=== PATIENT | female | born 1945 | race Caucasian/White ===

== ENCOUNTER 2016-10-11 09:15 | Emergency (ER) | payer MEDICARE, BC ==
--- NOTE | 2016-10-11 09:27 | ERNOTE ---
[id number]: patient, other - friends Exam Limitations: clinical condition Immunizations: IMMUNIZATION HX Immunizations Up to Date Yes Allergies/Adverse Reactions: Allergies Allergy/AdvReac Type Severity Reaction Status Date / Time amlodipine besylate Allergy Severe Anaphylaxis, Verified 10/11/16 09:30 [From [facility]] TONGUE SWELLING benzocaine Allergy Severe Anaphylaxis Verified 10/11/16 09:30 levofloxacin [From Levaquin] Allergy Severe Anaphylaxis, Verified 10/11/16 09:30 RASH, ITCHING levothyroxine sodium Allergy Severe PATCHY Verified 10/11/16 09:30 SWELLING morphine AdvReac Intermediate ARRYTHMIA, Verified 10/11/16 09:30 RASH adhesive AdvReac Mild BLISTERS Verified 10/11/16 09:30 rubber Allergy Mild Hives Uncoded 10/11/16 09:30 Home Medications: HOME MEDICATIONS Alprazolam 0.5 mg PO BID 02/27/14 [Last Taken Unknown] Lisinopril/Hydrochlorothiazide [Lisinopril-Hctz 20-12.5 mg Tab] 2 each PO DAILY 02/27/14 [Last Taken Unknown] Pramipexole Di-HCl [Pramipexole Dihydrochloride] 1 mg PO BID 02/27/14 [Last Taken Unknown] Gabapentin [Neurontin] 300 mg PO TID 05/17/14 [Last Taken Unknown] Metoprolol Succinate [Toprol Xl] 50 mg PO DAILY 05/26/14 [Last Taken Unknown] Albuterol Sulfate [Albuterol Sulfate 2.5 MG/0.5ML] 1 vial IH Q4H PRN 10/11/16 [ Last Taken Unknown] Aspirin [Aspirin EC] 81 mg PO DAILY 10/11/16 [Last Taken Unknown] Budesonide [Pulmicort Respules] 0.5 mg IH PRN PRN 10/11/16 [Last Taken Unknown] Formoterol Fumarate [Perforomist] 20 mcg IH PRN PRN 10/11/16 [Last Taken Unknown ] Meloxicam [Mobic] 15 mg PO DAILY 10/11/16 [Last Taken Unknown] Montelukast Sodium [Singulair] 10 mg PO DAILY 10/11/16 [Last Taken Unknown] - History of Present Illness Narrative: Patient is brought in by neighbors for possible stroke. When they talked to her last night around 17:00 she had no symptoms. Patient states that when she talked to a friend on the phone at 21:00 the friend had a hard time understanding her. All night she felt weak in both legs, had difficulty using her walker and was dropping things (with both hands?). This morning around 09: 00 she walked to neighbors at apartment complex was noticed to have a left facial droop that the patient is not aware off. Neighbors also state that her speech was garbled. Patient had URI symptoms around [place] with cough and shortness of breath, she feels that the symptoms are better, shortness of breath is at baseline as she has a history of asthma and sleep apnea. She uses oxygen at night but no CPAP Last Date Known Well: 10/10/16 Last Time Known Well: 17:00 Onset: cannot confirm onset - Character of Deficits New weakness: Present: facial (lt) Additional Deficits: Present: impaired speech, decrease ability to walk. Absent : vision problems Baseline Cognition: Present: alert, oriented x 4 Baseline Gait: Present: uses a cane/walker Associated Symptoms: Denies: fever/chills, chest pain, neck/back pain, headache Prior Treament: Denies: similar symptoms before, currently on antibiotics Review of Systems - Review of Systems Constitutional: Present: recent illness. Absent: fever EYE: Absent: double vision ENT: Absent: nose congestion, sore throat Respiratory: Present: See HPI, shortness of breath. Absent: cough Cardiology: Absent: chest pain Gastrointestinal/Abdominal: Absent: nausea, vomiting, abdominal pain Genitourinary: Present: decreased urinary output Skin: Absent: rash Neurological: Present: weakness. Absent: headache - Patient's Past Medical History Patient History - Medical: No pertinent hx Patient History - Cardiac/Respiratory: Hypertension, Hyperlipidemia Patient History - Cancer: No Hx of Cancer Patient History - Surgical Procedures: Back Surgery, Total Hip Replacement, Total Knee Replacement, Other - carpal tunnel surgery - Social History Living Situations: home Physical Exam - Physical Exam General Appearance: Present: wd/wn, alert, no apparent distress, anxious Eye Exam: Normal inspection: bilateral, PERRL: bilateral, EOMI: bilateral Ears, Nose, Throat: Present: normal ENT inspection, normal pharynx Respiratory: Present: no respiratory distress, decreased breath sounds, wheezing - occasional Cardiovascular/Chest: Present: regular rate, rhythm Gastrointestinal/Abdominal: Present: nondistended, soft Neurological Exam: Present: alert, oriented, facial droop - left Skin Exam: Present: normal color, warm/dry Jed Coma Scale - Assess Eye Opening: Spontaneous Motor: Obeys Commands Verbal: Oriented - Total Coma Scale Total: 15 Initial Stroke Assessment - NIH Stroke Scale Level of Consciousness: Alert LOC Questions (Year and Age): Answers both correctly LOC Commands (open/close eyes/fist): Performs both correctly Lateral Gaze Paresis: None Visual Field Loss: No visual loss Facial Palsy: Complete facial paralysis Right Arm Motor (10 sec hold): No drift Left Arm Motor (10 sec hold): Drift Right Leg Motor (5 sec hold): No drift Left Leg Motor (5 sec hold): Drift Sensory Loss (pinprick arms/legs/face): No sensory loss Language Aphasia (description/naming/reading): No aphasia; normal Dysarthria (speech clarity): Normal articulation Neglect Inattention (visual/tactile/auditory/spatial/person): No neglect ED Progress - Results and Orders Patient's Lab Results:: I have reviewed the patient's lab results. - Vital Signs Patient's Vital Signs:: I have reviewed the patient's vital signs. - EKG EKG: atrial fibrillation, changed from - 06/18/14 nl sinus rhythm, other - poor Rprogression anterior leads EKG read: Interp. by me - X-Ray X-Ray #1 X-Ray: chest - no acute changes Interpretation: Reviewed by me - CT/Ultrasound CT/Ultrasound Narrative: CT head: no acute findings - Progress/Reassessment Chief Complaint: CerebroVascular Accident Progress Note-Subjective: 10/11/16 09:50 no change 10/11/16 10:10 discussed results with patient, discussed possible transfer to stroke center, patient doesn't want to be transferred at this time 10/11/16 10:30 discussed with daughter and patient, patient agrees to transfer now 10/11/16 10:33 call to [facility],discussed with Dr Guadalupe (stroke team) accepted patient for transfer Departure Clinical Impression: Stroke Qualifiers: CVA mechanism: unspecified Qualified Code(s): I63.9 - Cerebral infarction, unspecified - Departure Disposition: [facility] Condition: Good
[2016-10-11 09:50] LABS: Hematocrit 40.9 % (37.0-47.0); Hemoglobin 13.2 gm/dL (12.5-16.0); Mean Cell Volume 95.6 fl (78-100); Mean Corpuscular Hemoglobin 30.8 pg (27-31); Mean Corpuscular Hgb Conc 32.3 g/dl (32-36); Mean Platelet Volume 9.7 fl (6.0-9.5); Neutrophil # 3.4 K/mm3 (1.3-6.0); Platelet Count 235 K/mm3 (150-450); Red Blood Count 4.28 M/mm3 (4.2-5.4); Red Cell Distribution Width 13.6 % (11.5-14.0); White Blood Count 6.5 K/mm3 (4.0-10.5)
[2016-10-11 10:01] LABS: Prothrombin Time (Patient) 10.3 Seconds (9.4-11.4)
[2016-10-11 10:03] LABS: INR 0.99 INR (0.90-1.10)
[2016-10-11 10:04] LABS: BUN/Creatinine Ratio 15.7 (9.0-21.6); Carbon Dioxide 31.9 mmol/L (24-32.6)
[2016-10-11 10:05] LABS: Albumin * 3.5 gm/dl (3.4-5.0); Anion Gap 11.1 mmol/L (6.8-13.8); Bilirubin, Total 0.6 mg/dL (0.0-1.1); Ca. Corrected For Albumin 9.3 mg/dL (8.4-10.2); Calcium * 9.2 mg/dL (7.9-10.9); Total Protein 7.5 gm/dL (6.2-8.2)
[2016-10-11 10:29] VITALS: BP 149/91
[2016-10-11] MEDS ORDERED: ASPIRIN 81 MG TAB.CHEW PO ONE (10:42)
[2016-10-11] MEDS ORDERED: ASPIRIN 81 MG TAB.CHEW ONE (10:46)
== END 2016-10-11 11:24 | disposition short-term general hospital (02) ==
LOC: ER 09:15
DX: I63.9 Cerebral infarction, unspecified (principal); Z96.649 Presence of unspecified artificial hip joint; Z96.659 Presence of unspecified artificial knee joint; I10 Essential (primary) hypertension

== ENCOUNTER 2016-11-02 09:26 | Emergency (ER) | payer MEDICARE, BC ==
[2016-11-02 10:04] VITALS: BP 155/94
--- NOTE | 2016-11-02 11:15 | ERNOTE ---
Back Pain ER HPI Date of Service: 11/02/16 Presenting Symptoms: injury/pain to back Time Seen by Provider: 11/02/16 10:36 Source: patient, RN notes reviewed, past records Exam Limitations: no limitations Immunizations: IMMUNIZATION HX Immunizations Up to Date Yes History of Influenza Vaccine Yes Hx Pneumococcal Vaccination No Allergies/Adverse Reactions: Allergies amlodipine besylate [From Norvasc] Allergy (Severe, Verified 10/11/16 09:30) Anaphylaxis, TONGUE SWELLING benzocaine Allergy (Severe, Verified 10/11/16 09:30) Anaphylaxis levofloxacin [From Levaquin] Allergy (Severe, Verified 10/11/16 09:30) Anaphylaxis, RASH, ITCHING levothyroxine sodium Allergy (Severe, Verified 10/11/16 09:30) PATCHY SWELLING morphine Adverse Reaction (Intermediate, Verified 10/11/16 09:30) ARRYTHMIA, RASH arrhythmia adhesive Adverse Reaction (Mild, Verified 10/11/16 09:30) BLISTERS rubber Allergy (Mild, Uncoded 10/11/16 09:30) Hives Home Medications: HOME MEDICATIONS Alprazolam 0.5 mg PO BID 02/27/14 [Last Taken Unknown] Pramipexole Di-HCl [Pramipexole Dihydrochloride] 1 mg PO BID 02/27/14 [Last Taken Unknown] Gabapentin [Neurontin] 300 mg PO TID 05/17/14 [Last Taken Unknown] Metoprolol Succinate [Toprol Xl] 50 mg PO DAILY 05/26/14 [Last Taken Unknown] Albuterol Sulfate [Albuterol Sulfate 2.5 MG/0.5ML] 1 vial IH Q4H PRN 10/11/16 [ Last Taken Unknown] Aspirin [Aspirin EC] 81 mg PO DAILY 10/11/16 [Last Taken Unknown] Meloxicam [Mobic] 15 mg PO DAILY 10/11/16 [Last Taken Unknown] Montelukast Sodium [Singulair] 10 mg PO DAILY 10/11/16 [Last Taken Unknown] Acetaminophen 80 mg PO PRN PRN 11/02/16 [Last Taken Unknown] Atorvastatin Calcium 40 mg PO HS 11/02/16 [Last Taken Unknown] Dabigatran Etexilate Mesylate [Pradaxa] 150 mg PO BID 11/02/16 [Last Taken Unknown] HYDROcodone/ACETAMINOPHEN [[place] 5-325] 1 - 2 tab PO Q6H PRN #20 tab 11/02/16 [ Last Taken Unknown] Narrative: 70 y/o female to ED by private vehicle. Ambulating with a wheeled walker. Complains of upper back pain after a fall approximately 10 days ago at home. She saw her PCP 5 days ago but did not mention this. She was being seen at that time for f/u after being discharged from [facility] for a CVA. She reports being seated on her walker when it slid out from under her. She landed on her behind on the floor. She also reports mild low back pain, but the upper back pain seems to be getting worse rather than better. She is on meloxicam routinely and has been taking Tylenol without improvement. Timing: Reports: getting worse Quality/Severity: Reports: aching Location of pain: Reports: upper back, no radiation Recent Injury?: Reports: yes Possible Precipitating Factor: Reports: fall/near fall Modifying Factors - (Improves): Reports: other - rest Modifying Factors - (Worsens): Reports: other - use of her arms, particularly trying to reach overhead Associated Symptoms: Denies: fever/chills, constipation/incontinence, nausea/ vomiting, difficulty walking, lightheadedness, numbess/weakness in legs Prior Treament: Reports: recently seen, recently hospitalized, similar symptoms before Review of Systems - Review of Systems Constitutional: Present: See HPI EYE: Present: no symptoms reported ENT: Present: no symptoms reported Respiratory: Absent: shortness of breath, cough Cardiology: Absent: chest pain, syncope Gastrointestinal/Abdominal: Present: See HPI Genitourinary: Present: See HPI Musculoskeletal: Present: See HPI Skin: Absent: rash, lesions Neurological: Absent: headache, dizziness/light-headedness, weakness, numbness, tingling Endocrine: Present: no symptoms reported Hematologic/Lymphatic: Present: no symptoms reported Psych: Present: no symptoms reported - Patient's Past Medical History Patient History - Medical: Anxiety, Depression, Obesity Patient History - Cardiac/Respiratory: Atrial Fibrillation, Asthma, CVA/Stroke, Hypertension, Hyperlipidemia, Home O2 Use, Sleep Apnea Patient History - Cancer: No Hx of Cancer Patient History - Surgical Procedures: Back Surgery, Total Hip Replacement, Total Knee Replacement, Other Patient History - Other: None LMP (females 10-50): Menopausal - Social History Living Situations: alone Smoking Status: Never smoker Alcohol Use: none Drug Use: none - Immunizations Immunizations Up to Date: Yes Hx Pneumococcal Vaccination: No History of Influenza Vaccine: Yes Physical Exam - Physical Exam General Appearance: Present: wd/wn, alert, no apparent distress, obese Eye Exam: Normal inspection: bilateral Neck: Present: full range of motion, tender lateral - bilateral. Absent: tender posterior midline Respiratory: Present: no respiratory distress, normal breath sounds, no accessory muscle use, lungs clear Cardiovascular/Chest: Present: regular rate, rhythm, no murmur Back Exam: Present: no vertebral tenderness, other - muscle tenderness throughout upper thoracic region bilaterally. Absent: muscle spasm Extremity Exam: Present: normal inspection, decreased range of motion - increased back pain with use of upper extremities Neurological Exam: Present: alert, oriented, no motor/sensory deficits, other - flat affect Skin Exam: Present: normal color, warm/dry ED Progress - Vital Signs Patient's Vital Signs:: I have reviewed the patient's vital signs. Vital Signs: Vital Signs 11/02/16 09:58 Temperature 36.3 C L Pulse Rate 65 Respiratory 16 Rate Blood Pressure 155/94 O2 Sat by Pulse 95 Oximetry - Progress/Reassessment Chief Complaint: Back Pain Progress:: Unchanged Plan - Plan Plan: Patient insists that she needs something stronger for pain, has taken [place] and Percocet in the past. Reports that Tramadol does not work and Flexeril causes extreme drowsiness and weakness in her legs. Rx for #20 [place] - cautioned regarding increased fall risk and constipation. Departure Clinical Impression: Pain, upper back Fall at home Qualifiers: Encounter type: initial encounter Qualified Code(s): W19.XXXA - Unspecified fall, initial encounter; Y92.099 - Unspecified place in other non-institutional residence as the place of occurrence of the external cause - Departure Disposition: Home Follow Up Needed Condition: Stable Instructions: Back Pain, Adult, [id number] Additional Instructions: Pain medication may cause constipation and you may need to take a laxative Contact Dr. Wilde if your symptoms are not improving later in the week Referrals: Tobias Wilde DO [Primary Care Provider] - Prescriptions: HYDROcodone/ACETAMINOPHEN [[place] 5-325] 1 - 2 tab PO Q6H PRN #20 tab PRN Reason: Pain
== END 2016-11-02 11:10 | disposition home or self-care (01) ==
LOC: ER 09:26
DX: M54.6 Pain in thoracic spine (principal); W19.XXXA Unspecified fall, initial encounter; Y92.099 Unspecified place in other non-institutional residence as the place of occurrence of the external cause; Z78.0 Asymptomatic menopausal state; Z99.81 Dependence on supplemental oxygen; Z79.82 Long term (current) use of aspirin

== ENCOUNTER 2016-11-11 09:08 | Observation (INO) | payer MEDICARE, BC ==
[2016-11-11] MEDS ORDERED: ALBUTEROL SULFATE/IPRATROPIUM 3 ML NEBU IH ONE ×2 (09:46→09:51)
[2016-11-11 10:14] LABS: Hematocrit 37.2 % (37.0-47.0); Hemoglobin 12.1 gm/dL (12.5-16.0); Mean Cell Volume 94.2 fl (78-100); Mean Corpuscular Hemoglobin 30.6 pg (27-31); Mean Corpuscular Hgb Conc 32.5 g/dl (32-36); Mean Platelet Volume 9.7 fl (6.0-9.5); Neutrophil % 70.4 % (42-75.0); Platelet Count 239 K/mm3 (150-450); Red Blood Count 3.95 M/mm3 (4.2-5.4); Red Cell Distribution Width 13.6 % (11.5-14.0); White Blood Count 8.5 K/mm3 (4.0-10.5)
[2016-11-11 10:26] LABS: Troponin I Less than 0.017 ng/ml (0.00-0.10)
[2016-11-11 10:28] LABS: ALT 14 U/L (19-67); AST 14 U/L (0-48); Albumin * 3.4 gm/dl (3.4-5.0); Alkaline Phosphatase * 69 U/L (50-170); Anion Gap 13.3 mmol/L (6.8-13.8); BNP * 3892 pg/mL (5-325); BUN/Creatinine Ratio 13.2 (9.0-21.6); Bilirubin, Total 1.1 mg/dL (0.0-1.1); Blood Urea Nitrogen 12 mg/dL (3-23); Calcium * 8.8 mg/dL (7.9-10.9); Carbon Dioxide 26.3 mmol/L (24-32.6); Chloride 104 mmol/L (97-106); Glucose * 155 mg/dL (70-110); Potassium 3.6 mmol/L (3.4-4.6); Sodium 140 mmol/L (132-142); Total Protein 7.1 gm/dL (6.2-8.2)
[2016-11-11 10:44] LABS: Urine Bilirubin Negative (NEGATIVE); Urine Blood 50 /ul (NEGATIVE); Urine Ketone Negative (NEGATIVE); Urine Nitrite Negative (NEGATIVE); Urine Protein 15 mg/dL (NEGATIVE); Urine Specific Gravity <=1.005 SP.GR. (1.005-1.010); Urine Urobilinogen Normal (NORMAL)
[2016-11-11 10:52] LABS: Urine Appearance Clear; Urine Bacteria None Seen; Urine Color Yellow; Urine WBC None Seen /hpf (0-5)
[2016-11-11] MEDS ORDERED: FUROSEMIDE 10 MG/ML VIAL IV ONE ×2 (11:02→18:00)
[2016-11-11] MEDS ORDERED: FUROSEMIDE 10 MG/ML VIAL ONE (11:12)
--- NOTE | 2016-11-11 11:51 | ERNOTE ---
Medical Problem HPI - Narrative Date of Service: 11/11/16 - General Chief Complaint: General Assessment Time Seen by Provider: 11/11/16 09:42 Source: patient Exam Limitations: no limitations - Immun/Allergies/Home Medications Immunizations: IMMUNIZATION HX Immunizations Up to Date Yes History of Influenza Vaccine Yes Hx Pneumococcal Vaccination No Allergies/Adverse Reactions: Allergies amlodipine besylate [From Norvasc] Allergy (Severe, Verified 11/11/16 09:36) Anaphylaxis, TONGUE SWELLING benzocaine Allergy (Severe, Verified 11/11/16 09:36) Anaphylaxis levofloxacin [From Levaquin] Allergy (Severe, Verified 11/11/16 09:36) Anaphylaxis, RASH, ITCHING levothyroxine sodium Allergy (Severe, Verified 11/11/16 09:36) PATCHY SWELLING morphine Adverse Reaction (Intermediate, Verified 11/11/16 09:36) ARRYTHMIA, RASH arrhythmia adhesive Adverse Reaction (Mild, Verified 11/11/16 09:36) BLISTERS rubber Allergy (Mild, Uncoded 11/11/16 09:36) Hives Home Medications: HOME MEDICATIONS Alprazolam 0.5 mg PO BID 02/27/14 [Last Taken Unknown] Pramipexole Di-HCl [Pramipexole Dihydrochloride] 1 mg PO BID 02/27/14 [Last Taken Unknown] Gabapentin [Neurontin] 300 mg PO TID 05/17/14 [Last Taken Unknown] Metoprolol Succinate [Toprol Xl] 50 mg PO DAILY 05/26/14 [Last Taken Unknown] Albuterol Sulfate [Albuterol Sulfate 2.5 MG/0.5ML] 1 vial IH Q4H PRN 10/11/16 [ Last Taken Unknown] Aspirin [Aspirin EC] 81 mg PO DAILY 10/11/16 [Last Taken Unknown] Meloxicam [Mobic] 15 mg PO DAILY 10/11/16 [Last Taken Unknown] Montelukast Sodium [Singulair] 10 mg PO DAILY 10/11/16 [Last Taken Unknown] Acetaminophen 80 mg PO PRN PRN 11/02/16 [Last Taken Unknown] Atorvastatin Calcium 40 mg PO HS 11/02/16 [Last Taken Unknown] Dabigatran Etexilate Mesylate [Pradaxa] 150 mg PO BID 11/02/16 [Last Taken Unknown] - History of Present History Narrative: Patient presents to the ED for bilateral leg swelling. her lags have been swelling for the last week. She by report has put on 10 lbs. No fever. No CP. She states the reasons she has come in was painful leg swelling and weight gain. She uses home oxygen at night. No cough. She was noted to be wheezing on nursing eval. Nothign seems to make this better or worse. Has not seen anyone else for this. No acute focal N/T/W. Timing: constant, getting worse Severity: moderate Modifying Factors - (Improves): Present: other - nothing Modifying Factors - (Worsens): Present: other - nothing Review of Systems - Review of Systems Constitutional: Absent: fever ENT: Absent: sore throat Respiratory: Absent: cough Cardiology: Absent: chest pain Gastrointestinal/Abdominal: Absent: abdominal pain Genitourinary: Absent: dysuria All Other Systems: All systems neg except as marked - Patient's Past Medical History Patient History - Medical: Anxiety, Depression, Obesity Patient History - Cardiac/Respiratory: Atrial Fibrillation, Asthma, CVA/Stroke, Hypertension, Hyperlipidemia, Home O2 Use, Sleep Apnea Patient History - Cancer: No Hx of Cancer Patient History - Surgical Procedures: Back Surgery, Total Hip Replacement, Total Knee Replacement, Other Patient History - Other: None - Social History Living Situations: alone Psych History: Hx of Anxiety Smoking Status: Current every day smoker Alcohol Use: none Drug Use: none - Immunizations Immunizations Up to Date: Yes Hx Pneumococcal Vaccination: No History of Influenza Vaccine: Yes Physical Exam - Physical Exam General Appearance: Present: alert, no apparent distress Eye Exam: Normal inspection: bilateral, PERRL: bilateral Ears, Nose, Throat: Present: normal ENT inspection Neck: Present: normal inspection Respiratory: Present: no respiratory distress, no accessory muscle use, other - rales in the bases bilaterally Cardiovascular/Chest: Present: other - irreg, irreg, rate controlled Gastrointestinal/Abdominal: Present: normal bowel sounds, nontender, soft. Absent: tenderness Back Exam: Absent: CVA tenderness (R), CVA tenderness (L) Extremity Exam: Present: other - bilateral LE swelling/pitting edems. No cellulitis noted Neurological Exam: Present: alert, other - no acute focal motor or sensory deficits noted. REcent stroke last month Skin Exam: Absent: skin rash ED Progress - Results and Orders Patient's Lab Results:: I have reviewed the patient's lab results. - Vital Signs Patient's Vital Signs:: I have reviewed the patient's vital signs. Vital Signs: Vital Signs 11/11/16 11/11/16 11/11/16 09:32 10:07 10:20 Temperature 36 C L Pulse Rate 83 78 79 Respiratory 22 H 13 15 Rate Blood Pressure 159/83 173/86 O2 Sat by Pulse 95 93 91 Oximetry 11/11/16 11/11/16 10:51 11:14 Temperature Pulse Rate 81 89 Respiratory 12 13 Rate Blood Pressure 186/102 176/93 O2 Sat by Pulse 91 94 Oximetry - EKG EKG read: Interp. by me EKG Comments: A fib rate 73. Non-specific ST/T wave changes, no STEMI - X-Ray X-Ray #1 X-Ray: chest Interpretation: Reviewed by me X-ray Comments: I reviewed radiology report - Progress/Reassessment Chief Complaint: General Assessment Progress:: Unchanged Progress Note-Subjective: 11/11/16 12:35 IV lasix given. D/W Dr Wilde. Patient did not feel well enough to go home, therefore he will admit obs for further treatment and eval of her new onset CHF. Departure - Departure Clinical Impression: CHF (congestive heart failure) Disposition: [facility] Condition: Stable Referrals: Tobias Wilde DO [Primary Care Provider] -
[2016-11-11] MEDS ORDERED: ALBUTEROL SULFATE 2.5 MG/0.5 ML VIAL.NEB IH PRN (13:08)
--- NOTE | 2016-11-11 16:29 | HP ---
Chief Complaint - Chief Complaint Date of Service: 11/11/16 Time of Service: 16:18 Chief Complaint: Short of breath, swelling in legs, weight gain History of Present Illness: Letty is a 71 yo female that presented to the [facility] ER with shortness of breath, recent 10lb weight gain, and lower extremity edema. She had noticed herself wheezing this morning and having difficulty catching her breath. In the ER she had a chest xray that showed pulmonary congestionand an elevated BNP. She was given IV lasix 40mg with reported good diuresis. At the time of my evaluation she reports no longer wheezing, no shortness of breath, and she feels her legs are not as tight. She denies chest pain. She does not recall any recent change in diet. She was recently seen at [facility] for stroke, but feels she has been recovering well. She reports recently having Echocardiogram at [facility]. Records are not immediately available. - Patient's Past Medical History Patient History - Medical: Alzheimer's Disease, Anxiety, Chronic Pain, Depression, Obesity, Osteoarthritis Patient History - Cardiac/Respiratory: Atrial Fibrillation, Asthma, CVA/Stroke, Hypertension, Hyperlipidemia, Home O2 Use, CPAP/BiPAP Home Use, Sleep Apnea Patient History - Cancer: No Hx of Cancer Patient History - Surgical Procedures: Back Surgery, Total Hip Replacement, Total Knee Replacement Patient History - Other: None LMP (females 10-50): Menopausal - Family History Brother Family History - Medical: No pertinent hx Father Family History - Cancer: Lung Mother Family History - Cardiac/Respiratory: Hypertension - Social History Living Situations: alone Psych History: Hx of Anxiety Smoking Status: Never smoker Have you smoked in the past 12 months: No Patient requests Smoking Cessation Consult: No Initiate information on Smoking Cessation: No Alcohol Use: none Drug Use: none - Immunizations Immunizations Up to Date: Yes Hx Pneumococcal Vaccination: No History of Influenza Vaccine: Yes Review Of Systems (GEN) - Review of Systems Generalized/Overall Review: Present: Weakness. Absent: Chills, Fever EENTM: Present: No Symptoms Reported Respiratory: Present: Cough, Shortness of Breath, Wheezing Cardiac: Present: Edema. Absent: Chest Pain, Palpitations Abdominal: Present: No Symptoms Reported Genitourinary: Present: No Symptoms Reported Musculoskeletal: Present: No Symptoms Reported Neurological: Present: No Symptoms Reported Skin: Present: No Symptoms Reported Endocrine: Present: No Symptoms Reported Immunizations: IMMUNIZATION HX Immunizations Up to Date Yes History of Influenza Vaccine Yes Hx Pneumococcal Vaccination No Allergies/Adverse Reactions: Allergies Allergy/AdvReac Type Severity Reaction Status Date / Time amlodipine besylate Allergy Severe Anaphylaxis, Verified 11/11/16 14:28 [From Norvasc] TONGUE SWELLING benzocaine Allergy Severe Anaphylaxis Verified 11/11/16 14:28 levofloxacin [From Levaquin] Allergy Severe Anaphylaxis, Verified 11/11/16 14:28 RASH, ITCHING levothyroxine sodium Allergy Severe PATCHY Verified 11/11/16 14:28 SWELLING morphine AdvReac Intermediate ARRYTHMIA, Verified 11/11/16 14:28 RASH adhesive AdvReac Mild BLISTERS Verified 11/11/16 14:28 rubber Allergy Mild Hives Uncoded 11/11/16 14:28 Home Medications: HOME MEDICATIONS Alprazolam 0.5 mg PO BID 02/27/14 [Last Taken Unknown] Pramipexole Di-HCl [Pramipexole Dihydrochloride] 1 mg PO DAILY 02/27/14 [Last Taken Unknown] Gabapentin [Neurontin] 300 mg PO HS 05/17/14 [Last Taken Unknown] Metoprolol Succinate [Toprol Xl] 50 mg PO QPM 05/26/14 [Last Taken Unknown] Albuterol Sulfate [Albuterol Sulfate 2.5 MG/0.5ML] 1 vial IH Q4H PRN 10/11/16 [ Last Taken Unknown] Aspirin [Aspirin EC] 81 mg PO DAILY 10/11/16 [Last Taken Unknown] Meloxicam [Mobic] 15 mg PO DAILY 10/11/16 [Last Taken Unknown] Montelukast Sodium [Singulair] 10 mg PO QPM 10/11/16 [Last Taken Unknown] Atorvastatin Calcium 40 mg PO HS 11/02/16 [Last Taken Unknown] Dabigatran Etexilate Mesylate [Pradaxa] 150 mg PO BID 11/02/16 [Last Taken Unknown] Pramipexole Di-HCl [Pramipexole Dihydrochloride] 2 mg PO QPM 11/11/16 [Last Taken Unknown] Exam - Exam Vital Signs: Vital Signs - Last Taken Temp 36.6 C 11/11/16 14:54 Pulse 108 H 11/11/16 14:54 Resp 18 11/11/16 14:54 BP 166/91 11/11/16 14:54 Pulse Ox 94 11/11/16 14:54 Constitutional: Present: Alert, Oriented x3, Cooperative ENT Exam: Present: hearing grossly normal Eye Exam: bilateral eye: normal inspection Respiratory: Present: decreased breath sounds, crackles Cardiovascular/Chest: Present: regular rate, rhythm, no murmur Abdomen: Present: Normal bowel sounds, soft, nontender, nondistended, no rebound tenderness Extremity: Present: lower extremity edema - 3+ bilaterally, no weeping Skin Exam: Present: normal color, warm/dry, no cyanosis Lymphatic: Present: no adenopathy Appearance: Present: appropriate appearance, appropriate insight Diagnostic Studies: Laboratory Results WBC 8.5 K/mm3 (4.0-10.5) 11/11/16 09:55 RBC 3.95 M/mm3 (4.2-5.4) L 11/11/16 09:55 Hgb 12.1 gm/dL (12.5-16.0) L 11/11/16 09:55 Hct 37.2 % (37.0-47.0) 11/11/16 09:55 MCV 94.2 fl (78-100) 11/11/16 09:55 MCH 30.6 pg (27-31) 11/11/16 09:55 MCHC 32.5 g/dl (32-36) 11/11/16 09:55 RDW 13.6 % (11.5-14.0) 11/11/16 09:55 Plt Count 239 K/mm3 (150-450) 11/11/16 09:55 MPV 9.7 fl (6.0-9.5) H 11/11/16 09:55 Immature Gran % (Auto) 0.70 % (0.001-0.429) H 11/11/16 09:55 Immature Gran # (Auto) 0.06 K/mm3 (0.000-0.0310) H 11/11/16 09:55 Neutrophils % 70.4 % (42-75.0) 11/11/16 09:55 Lymphocytes % 19.4 % (20-51) L 11/11/16 09:55 Monocytes % 5.1 % (0.0-9) 11/11/16 09:55 Eosinophils % 4.0 % (0.0-3.0) H 11/11/16 09:55 Basophils % 0.4 % (0.0-1.0) 11/11/16 09:55 Nucleated RBC % 0.0 k/mm3 (0-1) 11/11/16 09:55 Neutrophils # 6.0 K/mm3 (1.3-6.0) 11/11/16 09:55 Lymphocytes # 1.6 k/mm3 (1.5-3.5) 11/11/16 09:55 Monocytes # 0.4 k/mm3 (0.0-1.0) 11/11/16 09:55 Eosinophils # 0.3 k/mm3 (0.0-0.7) 11/11/16 09:55 Absolute Basophils 0.0 k/mm3 (0.0-0.1) 11/11/16 09:55 Sodium 140 mmol/L (132-142) 11/11/16 09:55 Plasma Sodium 141 mmol/L (130-142) 11/11/16 09:55 Potassium 3.6 mmol/L (3.4-4.6) 11/11/16 09:55 Chloride 104 mmol/L (97-106) 11/11/16 09:55 Carbon Dioxide 26.3 mmol/L (24-32.6) 11/11/16 09:55 Anion Gap 13.3 mmol/L (6.8-13.8) 11/11/16 09:55 BUN 12 mg/dL (3-23) 11/11/16 09:55 Creatinine 0.91 mg/dL (0.4-1.4) 11/11/16 09:55 Est GFR (Non-Af Amer) 65 mL/min (60-130) D 11/11/16 09:55 BUN/Creatinine Ratio 13.2 (9.0-21.6) 11/11/16 09:55 Random Glucose 155 mg/dL (70-110) H 11/11/16 09:55 Calcium 8.8 mg/dL (7.9-10.9) 11/11/16 09:55 Calcium Adj for Albumin 9.0 mg/dL (8.4-10.2) 11/11/16 09:55 Total Bilirubin 1.1 mg/dL (0.0-1.1) 11/11/16 09:55 AST 14 U/L (0-48) 11/11/16 09:55 ALT 14 U/L (19-67) L 11/11/16 09:55 Alkaline Phosphatase 69 U/L (50-170) 11/11/16 09:55 Troponin I Less than 0.017 ng/ml (0.00-0.10) 11/11/16 09:55 B-Natriuretic Peptide 3892 pg/mL (5-325) H 11/11/16 09:55 Total Protein 7.1 gm/dL (6.2-8.2) 11/11/16 09:55 Albumin 3.4 gm/dl (3.4-5.0) 11/11/16 09:55 Urine Color Yellow 11/11/16 10:33 Urine Appearance Clear 11/11/16 10:33 Urine pH 6.0 pH (5.0-7.0) 11/11/16 10:33 Ur Specific [place] <=1.005 SP.GR. (1.005-1.010) 11/11/16 10:33 Urine Protein 15 mg/dL (NEGATIVE) H 11/11/16 10:33 Urine Glucose (UA) Negative mg/dL (NEGATIVE) 11/11/16 10:33 Urine Ketones Negative mg/dL (NEGATIVE) 11/11/16 10:33 Urine Blood 50 /ul (NEGATIVE) H 11/11/16 10:33 Urine Nitrate Negative (NEGATIVE) 11/11/16 10:33 Urine Bilirubin Negative mg/dl (NEGATIVE) 11/11/16 10:33 Prot Sulfosalicylic Acd Negative mg/dL (0) 11/11/16 10:33 Urine Urobilinogen Normal EU/dl (NORMAL) 11/11/16 10:33 Ur Leukocyte Esterase Negative /ul (NEGATIVE) 11/11/16 10:33 Urine RBC 5-10 /hpf (0-5) H 11/11/16 10:33 Urine WBC None seen /hpf (0-5) 11/11/16 10:33 Ur Epithelial Cells 0-5 /hpf (0-5) 11/11/16 10:33 Urine Bacteria None seen (NONE) 11/11/16 10:33 Urine Culture Comments No culture indicated 11/11/16 10:33 Assessment/Plan - Assessment/Plan (1) CHF (congestive heart failure) Assessment: Letty is a 71 yo female that appears to have CHF based on elevated BNP and pulmonary congestion on chest xray. Will determine CHF type once we get echo records from [facility]. Will get echocardiogram results from [facility]. Will treat with IV lasix 40mg q6hr. Patient is medically stable and not requiring any oxygen at this time. Due to her dyspnea will admit to observation, diurese, and monitor vitals, specifically oxygen. Expect 1 midnight stay and anticipate discharge to home tomorrow. Problem: Acute Qualifiers: Congestive heart failure type: unspecified congestive heart failure type Congestive heart failure chronicity: acute Qualified Code(s): I50.9 - Heart failure, unspecified
[2016-11-11] MEDS: GABAPENTIN 300 MG CAPSULE PO SCH (17:01)
[2016-11-11] MEDS ORDERED: ROSUVASTATIN CALCIUM 10 MG TABLET PO SCH (21:00)
[2016-11-11] MEDS: ALPRAZolam 0.5 MG TABLET PO SCH (21:27)
[2016-11-11] MEDS: DABIGATRAN ETEXILATE MESYLATE 150 MG CAPSULE PO SCH (21:28)
[2016-11-11] MEDS: PRAMIPEXOLE DI-HCL 0.5 MG TABLET PO SCH (21:28)
[2016-11-12] MEDS ORDERED: ACETAMINOPHEN 325 MG TABLET PO PRN (00:47)
[2016-11-12 07:58] LABS: Hematocrit 40.8 % (37.0-47.0); Hemoglobin 13.4 gm/dL (12.5-16.0); Mean Cell Volume 94.4 fl (78-100); Mean Corpuscular Hgb Conc 32.8 g/dl (32-36); Mean Platelet Volume 9.3 fl (6.0-9.5); Neutrophil # 6.6 K/mm3 (1.3-6.0); Neutrophil % 69.3 % (42-75.0); Platelet Count 253 K/mm3 (150-450); Red Blood Count 4.32 M/mm3 (4.2-5.4); Red Cell Distribution Width 13.7 % (11.5-14.0); White Blood Count 9.5 K/mm3 (4.0-10.5)
[2016-11-12 08:14] LABS: Albumin * 3.4 gm/dl (3.4-5.0); Anion Gap 9.6 mmol/L (6.8-13.8); Ca. Corrected For Albumin 9.2 mg/dL (8.4-10.2); Carbon Dioxide 32.3 mmol/L (24-32.6); Potassium 3.9 mmol/L (3.4-4.6); Total Protein 7.2 gm/dL (6.2-8.2)
[2016-11-12] MEDS ORDERED: ASPIRIN 81 MG TABLET.DR PO SCH (09:00)
[2016-11-12] MEDS ORDERED: MONTELUKAST SODIUM 10 MG TABLET PO SCH (09:00)
[2016-11-12] MEDS ORDERED: METOPROLOL SUCCINATE 50 MG TABLET.SA PO SCH (09:00)
[2016-11-12] MEDS: ALPRAZolam 0.5 MG TABLET PO SCH (09:35)
[2016-11-12] MEDS: GABAPENTIN 300 MG CAPSULE PO SCH ×2 (09:35→12:02)
[2016-11-12] MEDS: DABIGATRAN ETEXILATE MESYLATE 150 MG CAPSULE PO SCH (09:35)
[2016-11-12] MEDS: PRAMIPEXOLE DI-HCL 0.5 MG TABLET PO SCH (09:35)
[2016-11-12] MEDS ORDERED: FUROSEMIDE 10 MG/ML VIAL IV ONE (09:43)
[2016-11-12 10:43] VITALS: BP 122/74
--- NOTE | 2016-11-12 11:30 | DS ---
(1) CHF (congestive heart failure) Diagnosis(s): Letty Cristina is a 71 yo female admitted for suspected acute CHF due to shortness of breath with pulmonary congestion seen on chest xray, elevated BNP, and 10lb weight gain with lower extremity edema of 3+. She was diuresed with Lasix 40mg IV q6 hours for a total of 3 doses and diuresed well. She lost approximately 5-10lbs, shortness of breath resolved, and edema in legs improved. She was never hypoxic. Records were received from [facility] with an echocardiogram that was recently performed in October of 2016. Echocardiogram was normal with EF 55% and no significant valvular abnormalities. Clinically she appears to have an acute CHF exacerbation. Due to normal EF suspect acute diastolic CHF. However, in light of the normal recent echo will have her follow up with Cardiology for further evaluation. I will send her home with a rx for lasix 40mg daily to be used as needed for weight gain >2lbs in 24hours or >5lbs in a week until she returns to baseline. She will follow up with me in a week and she will keep track of how often she uses her lasix. Problem: Acute Qualifiers: Congestive heart failure type: diastolic Congestive heart failure chronicity: acute Qualified Code(s): I50.31 - Acute diastolic (congestive) heart failure Procedures Performed: none Discharge Disposition: Home self care Disposition: Home self-care Condition: Good Discharge Activity: Activity as tolerated Discharge Diet: Low salt Referrals: Tobias Wilde DO [Primary Care Provider] - One Week Re Howard MD [Associate] - (Next available to review [facility] echocardiogram and clinical suspicion of CHF.) Problem Oriented Discharge Instructions to Patient/Family: CHF Patient Instructions Additional Patient Instructions (free text): Monitor weight every morning. Call clinic if weight increases by more than 2lbs in 24hours or more than 5lbs in a week. Avoid salt/sodium. Stay active, when sitting keep legs elevated. Prescriptions (Any new or edited meds): Furosemide [Lasix] 40 mg PO DAILY PRN #30 tablet PRN Reason: edema, fluid retention Complete Home Medications List: Complete Home Medication List: Alprazolam 0.5 mg PO BID 02/27/14 Pramipexole Di-HCl [Pramipexole Dihydrochloride] 1 mg PO DAILY 05/26/14 Gabapentin [Neurontin] 300 mg PO HS 05/17/14 Metoprolol Succinate [Toprol Xl] 50 mg PO QPM 05/26/14 Albuterol Sulfate [Albuterol Sulfate 2.5 MG/0.5ML] 1 vial IH Q4H PRN 10/11/16 Aspirin [Aspirin EC] 81 mg PO DAILY 10/11/16 Meloxicam [Mobic] 15 mg PO DAILY 10/11/16 Montelukast Sodium [Singulair] 10 mg PO QPM 10/11/16 Atorvastatin Calcium 40 mg PO HS 11/02/16 Dabigatran Etexilate Mesylate [Pradaxa] 150 mg PO BID 11/02/16 Pramipexole Di-HCl [Pramipexole Dihydrochloride] 2 mg PO QPM 11/11/16 Furosemide [Lasix] 40 mg PO DAILY PRN #30 tablet 11/12/16
== END 2016-11-12 12:40 | disposition home or self-care (01) ==
LOC: ER 09:08 → MS 12:33
PROVIDERS: ADMIT Family Medicine; ATTEND Family Medicine
DX: R06.02 Shortness of breath (principal); I10 Essential (primary) hypertension
CPT/HCPCS: 36415; 71020; 80053; 81001; 83880; 84484; 85025; 93005; 96374; 99284; G0378

== ENCOUNTER 2017-02-01 12:37 | Emergency (ER) | payer MEDICARE, BC ==
[2017-02-01 13:25] VITALS: BP 132/55
--- OUTSIDE RECORDS SUMMARY | 2017-02-01 13:44 | XMS REPORT | Continuity of Care Document ---
:1945 Author Organization [facility] ([facility]) Address [address] [place] [address] Phone [phone] Care Team Providers Name Role Phone Tobias Wilde Primary Care Provider [phone] Source Comments This disclosure is being made pursuant to the Care Everywhere program, applicable federal and state laws, and may not contain all informaitonavailable regarding this patient.[facility] ([facility]) Active Allergies and Adverse Reactions Allergen Noted Date Severity Reactions Comments Amlodipine Besylate 10/11/2016 Unknown Benzocaine 10/11/2016 Angioedema Levofloxacin 10/11/2016 Unknown Morphine 10/11/2016 Cardiac Arrhythmia Non-Med Tape OTHER Blisters Current Medications Prescription Sig. Disp. Refills Start Date End Date Status gabapentin 300 mg Take 300 mg by Active capsule mouth 3 times daily. meloxicam 15 mg Take 15 mg by Active tablet mouth daily. ALPRAZolam 0.5 mg Take 0.5 mg by Active tablet mouth 2 times daily as needed. pramipexole 1 mg Take 1 mg by mouth Active tablet every morning and 2 mg by mouth every evening aspirin 81 mg EC Take 81 mg by Active tablet mouth daily. montelukast 10 mg Take 10 mg by Active tablet mouth daily. albuterol 0.63 mg/3 Use 0.63 mg by Active mL nebulizer solution inhalation every 6 hours as needed. dabigatran (praDAXA) Take 1 capsule 60 capsule 11 10/14/2016 Active 150 mg capsule (150 mg total) by mouth 2 times daily. metoPROLol succinate Take 1 tablet (25 30 tablet 11 10/14/2016 Active 25 mg XL tablet mg total) by mouth daily. atorvastatin 40 mg Take 1 tablet (40 90 tablet 3 12/08/2016 Active tablet mg total) by mouth at bedtime. Active Problems Problem Noted Date Cerebrovascular accident (CVA) 10/11/2016 Primary localized osteoarthrosis, pelvic region and thigh 10/28/2005 Pain in joint, pelvic region and thigh 10/24/2005 Arthrodesis status 08/14/2005 Spinal stenosis, unspecified region other than cervical 07/09/2005 Other specified pre-operative examination 05/27/2005 Other specified cardiac dysrhythmias(427.89) 05/27/2005 Lumbago 03/31/2003 Acquired spondylolisthesis 03/31/2003 Follow-up examination, following unspecified surgery 12/01/2002 Disorders of bursae and tendons in shoulder region, unspecified 09/16/2002 Cervical spondylosis without myelopathy 06/30/2002 Most Recent Encounters Date Type Specialty Providers Description 12/04/2016 Office Visit Heart and Vascular Re Howard MD Chief Comp: Patient Reported Reason For Visit 12/02/2016 Refill Neurology Gianfranco Zazueta, Dx: Cerebrovascular MD Vi accident (CVA), unspecified mechanism (Primary Dx) Social History Tobacco Use Types Packs/Day Years Used Date Never Smoker Last Filed Vital Signs Vital Sign Reading Time Taken Blood Pressure 121/56 10/14/2016 12: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 Pulse 95 10/13/2016 4:38 PM [employer]EC[employer]IVE [employer]URSING Temperature 36.4 C (97.5 F) 10/14/2016 8:07 AM [employer]EC[employer]IVE [employer]URSING Respiratory Rate 17 10/14/2016 12: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 Height 1.575 m (5' 2") 10/11/2016 8:40 PM EXEC[employer]IVE [employer]OR [employer] NURSING Weight 108.5 kg (239 lb 3.2 oz) 10/11/2016 8:40 PM EXEC[employer]IVE [employer]OR [employer] NURSING Body Mass Index 43.74 10/11/2016 8:40 PM EXEC[employer]IVE [employer]OR [employer] NURSING Oxygen Saturation 92% 10/14/2016 12: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 Plan of Care Health Maintenance Due Date Last Done Comments HCV Screening 1945 Hepatitis B Vaccine (1 of 3 - Primary 1945 Series) Tdap Vaccine 1955 Td Vaccine 1962 Mammogram 1984 Colonoscopy 1994 Zoster Vaccine 2004 Osteoporosis Screening (DXA Bone Density) 2009 Pneumococcal Vaccine (1 of 2 - PCV13) 2009 Influenza Vaccine: Seasonal (#1) 05/05/2016 Lipid Disorder Screening 10/12/2021 10/12/2016, 05/30/2005 Results from Last 3 Months Not on file
[2017-02-01 13:46] LABS: Hematocrit 34.8 % (37.0-47.0); Hemoglobin 11.5 gm/dL (12.5-16.0); Mean Cell Volume 94.1 fl (78-100); Mean Corpuscular Hemoglobin 31.1 pg (27-31); Mean Platelet Volume 9.6 fl (6.0-9.5); Neutrophil # 4.6 K/mm3 (1.3-6.0); Neutrophil % 62.8 % (42-75.0); Platelet Count 210 K/mm3 (150-450); Red Cell Distribution Width 13.2 % (11.5-14.0); White Blood Count 7.3 K/mm3 (4.0-10.5)
[2017-02-01 14:04] LABS: Albumin * 3.5 gm/dl (3.4-5.0); Bilirubin, Total 1.1 mg/dL (0.0-1.1); Ca. Corrected For Albumin 9.4 mg/dL (8.4-10.2); Calcium * 9.3 mg/dL (7.9-10.9); Carbon Dioxide 35.7 mmol/L (24-32.6); Potassium 3.7 mmol/L (3.4-4.6); Total Protein 7.4 gm/dL (6.2-8.2)
--- NOTE | 2017-02-01 14:18 | ERNOTE ---
Medical Problem HPI - Narrative Date of Service: 02/01/17 - General Chief Complaint: Lower Extremity Pain/ Injury Time Seen by Provider: 02/01/17 13:29 Source: patient, family, RN notes reviewed, old records Exam Limitations: other - Poor historian - Immun/Allergies/Home Medications Immunizations: IMMUNIZATION HX Immunizations Up to Date Yes History of Influenza Vaccine Yes Hx Pneumococcal Vaccination No Allergies/Adverse Reactions: Allergies amlodipine besylate [From Norvasc] Allergy (Severe, Verified 02/01/17 13:14) Anaphylaxis, TONGUE SWELLING benzocaine Allergy (Severe, Verified 02/01/17 13:14) Anaphylaxis levofloxacin [From Levaquin] Allergy (Severe, Verified 02/01/17 13:14) Anaphylaxis, RASH, ITCHING levothyroxine sodium Allergy (Severe, Verified 02/01/17 13:14) PATCHY SWELLING morphine Adverse Reaction (Intermediate, Verified 02/01/17 13:14) ARRYTHMIA, RASH arrhythmia adhesive Adverse Reaction (Mild, Verified 02/01/17 13:14) BLISTERS rubber Allergy (Mild, Uncoded 02/01/17 13:14) Hives Home Medications: HOME MEDICATIONS Alprazolam 0.5 mg PO BID 02/27/14 [Last Taken Unknown] Pramipexole Di-HCl [Pramipexole Dihydrochloride] 1 mg PO DAILY 02/27/14 [Last Taken Unknown] Gabapentin [Neurontin] 300 mg PO HS 05/17/14 [Last Taken Unknown] Metoprolol Succinate [Toprol Xl] 50 mg PO QPM 05/26/14 [Last Taken Unknown] Albuterol Sulfate [Albuterol Sulfate 2.5 MG/0.5ML] 1 vial IH Q4H PRN 10/11/16 [ Last Taken Unknown] Aspirin [Aspirin EC] 81 mg PO DAILY 10/11/16 [Last Taken Unknown] Montelukast Sodium [Singulair] 10 mg PO QPM 10/11/16 [Last Taken Unknown] Atorvastatin Calcium 40 mg PO HS 11/02/16 [Last Taken Unknown] Dabigatran Etexilate Mesylate [Pradaxa] 150 mg PO BID 11/02/16 [Last Taken Unknown] Furosemide [Lasix] 40 mg PO DAILY PRN #30 tablet 11/12/16 [Last Taken Unknown] Folic Acid 1 mg PO DAILY 02/01/17 [Last Taken Unknown] - History of Present History Narrative: 71 y/o female brought to the ED by family for bilateral knee pain. She was recently diagnosed with CHF and believes it is d/t this. She reports that her knees feel tight and she feels "full" all over. She has been taking Lasix and recording her weight at home. She has actually been losing weight. She has an appointment to see her PCP tomorrow for a recheck. Review of Systems - Review of Systems Constitutional: Absent: recent illness, fever EYE: Present: no symptoms reported ENT: Present: nose congestion, nasal drainage. Absent: ear pain, sore throat Respiratory: Absent: shortness of breath, cough, orthopnea, wheezing Cardiology: Present: edema. Absent: chest pain, palpitations, claudication Gastrointestinal/Abdominal: Absent: nausea, abdominal pain Genitourinary: Absent: dysuria, decreased urinary output Musculoskeletal: Present: muscle pain, joint pain, joint swelling Skin: Absent: lesions, lumps, change in color Neurological: Absent: headache, dizziness/light-headedness Endocrine: Present: no symptoms reported Hematologic/Lymphatic: Present: no symptoms reported Psych: Present: no symptoms reported - Patient's Past Medical History Patient History - Medical: Alzheimer's Disease, Anxiety, Chronic Pain, Depression, Obesity, Osteoarthritis Patient History - Cardiac/Respiratory: Atrial Fibrillation, Asthma, CHF, CVA/ Stroke, Hypertension, Hyperlipidemia, Home O2 Use, CPAP/BiPAP Home Use, Sleep Apnea Patient History - Cancer: No Hx of Cancer Patient History - Surgical Procedures: Back Surgery, Total Hip Replacement, Total Knee Replacement Patient History - Other: None LMP (females 10-50): Menopausal - Family History Brother Family History - Medical: No pertinent hx Father Family History - Cancer: Lung Mother Family History - Cardiac/Respiratory: Hypertension - Social History Living Situations: alone Abuse History: No History of abuse Psych History: Hx of Anxiety Smoking Status: Never smoker Alcohol Use: none Drug Use: none - Immunizations Immunizations Up to Date: Yes Hx Pneumococcal Vaccination: No History of Influenza Vaccine: Yes Physical Exam - Physical Exam General Appearance: Present: alert, no apparent distress, obese, other - ambulating with walker Ears, Nose, Throat: Present: normal ENT inspection Neck: Present: normal inspection, nontender, supple Respiratory: Present: no respiratory distress, normal breath sounds, no accessory muscle use, lungs clear Cardiovascular/Chest: Present: regular rate, rhythm, no murmur, normal peripheral pulses Extremity Exam: Present: non-tender, extremity edema - mild, bilateral lower extremities to just above ankle. Absent: joint redness, joint swelling Neurological Exam: Present: alert, oriented, normal mood/affect, no motor/ sensory deficits Skin Exam: Present: normal color, warm/dry ED Progress - Results and Orders Patient's Lab Results:: I have reviewed the patient's lab results. - Vital Signs Patient's Vital Signs:: I have reviewed the patient's vital signs. Vital Signs: Vital Signs 02/01/17 02/01/17 12:58 13:22 Temperature 36.5 C 36.7 C Pulse Rate 57 L 93 Respiratory 22 H 14 Rate Blood Pressure 153/85 132/55 O2 Sat by Pulse 93 95 Oximetry - Progress/Reassessment Chief Complaint: Lower Extremity Pain/ Injury Progress:: Unchanged Plan - Plan Plan: BNP is down from 2087 approx 2 months ago to 185 today. Reassured patient that her knee pain does not appear to be d/t her CHF. Her lungs are clear, her lower extremity edema is negligible and her daily weights have been generally trending down. Patient to see her PCP at 1100 tomorrow as scheduled. Departure - Departure Clinical Impression: Knee pain, bilateral Qualifiers: Chronicity: acute Qualified Code(s): M25.561 - Pain in right knee Condition: Stable Additional Instructions: Continue your current medications See your doctor as scheduled Referrals: Tobias Wilde DO [Primary Care Provider] -
== END 2017-02-01 14:42 | disposition home or self-care (01) ==
LOC: ER 12:37
DX: M25.561 Pain in right knee (principal); I48.91 Unspecified atrial fibrillation; Z79.01 Long term (current) use of anticoagulants; I10 Essential (primary) hypertension; F41.8 Other specified anxiety disorders

== ENCOUNTER 2017-02-24 13:31 | Emergency (ER) | payer MEDICARE, BC ==
[2017-02-24 13:41] VITALS: BP 162/73
--- OUTSIDE RECORDS SUMMARY | 2017-02-24 13:53 | XMS REPORT | Continuity of Care Document ---
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
--- NOTE | 2017-02-24 13:55 | ERNOTE ---
Upper Extremity HPI - General Extremities Pain Location: wrist: right Time Seen by Provider: 02/24/17 13:45 Source: patient Exam Limitations: no limitations - Immun/Allergies/Home Medications Immunizations: IMMUNIZATION HX Immunizations Up to Date Yes History of Influenza Vaccine Yes Hx Pneumococcal Vaccination No Allergies/Adverse Reactions: Allergies Allergy/AdvReac Type Severity Reaction Status Date / Time amlodipine besylate Allergy Severe Anaphylaxis, Verified 02/24/17 13:42 [From Norvasc] TONGUE SWELLING benzocaine Allergy Severe Anaphylaxis Verified 02/24/17 13:42 levofloxacin [From Levaquin] Allergy Severe Anaphylaxis, Verified 02/24/17 13:42 RASH, ITCHING levothyroxine sodium Allergy Severe PATCHY Verified 02/24/17 13:42 SWELLING morphine AdvReac Intermediate ARRYTHMIA, Verified 02/24/17 13:42 RASH adhesive AdvReac Mild BLISTERS Verified 02/24/17 13:42 rubber Allergy Mild Hives Uncoded 02/24/17 13:42 Home Medications: HOME MEDICATIONS Alprazolam 0.5 mg PO BID 02/27/14 [Last Taken Unknown] Pramipexole Di-HCl [Pramipexole Dihydrochloride] 1 mg PO DAILY 02/27/14 [Last Taken Unknown] Gabapentin [Neurontin] 300 mg PO HS 05/17/14 [Last Taken Unknown] Metoprolol Succinate [Toprol Xl] 50 mg PO QPM 05/26/14 [Last Taken Unknown] Albuterol Sulfate [Albuterol Sulfate 2.5 MG/0.5ML] 1 vial IH Q4H PRN 10/11/16 [ Last Taken Unknown] Aspirin [Aspirin EC] 81 mg PO DAILY 10/11/16 [Last Taken Unknown] Montelukast Sodium [Singulair] 10 mg PO QPM 10/11/16 [Last Taken Unknown] Atorvastatin Calcium 40 mg PO HS 11/02/16 [Last Taken Unknown] Dabigatran Etexilate Mesylate [Pradaxa] 150 mg PO BID 11/02/16 [Last Taken Unknown] Furosemide [Lasix] 40 mg PO DAILY PRN #30 tablet 11/12/16 [Last Taken Unknown] Folic Acid 1 mg PO DAILY 02/01/17 [Last Taken Unknown] Naproxen [Naprosyn] 500 mg PO BID #60 tablet 02/24/17 [Last Taken Unknown] traMADol HCL [Ultram] 50 mg PO QID PRN #20 tablet 02/24/17 [Last Taken Unknown] - History of Present Illness Narrative: Patient states that she has chronic nerve damage with numbness in the right wrist and forearm, however she bent down to push herself up and felt a sudden sharp pain and a pop in the right wrist. Patient states that now originating in the right wrist area on the anterior surface and going up the forearm is burning and pain. The pain at approximately 7 on a scale of 1-10. Occurred: this morning Location of Incident: home Severity: moderate Method of Injury: Reports: no apparent injury Loss of Consciousness: Reports: no loss of consciousness Associated Symptoms: Reports: numbness distally - chronic Other Injuries: Reports: none Review of Systems - Review of Systems Constitutional: Present: See HPI EYE: Present: no symptoms reported ENT: Present: no symptoms reported Respiratory: Present: no symptoms reported Cardiology: Present: no symptoms reported Gastrointestinal/Abdominal: Present: no symptoms reported Genitourinary: Present: no symptoms reported Musculoskeletal: Present: See HPI, joint pain Skin: Present: no symptoms reported Neurological: Present: no symptoms reported Endocrine: Present: no symptoms reported Hematologic/Lymphatic: Present: no symptoms reported Psych: Present: no symptoms reported - Patient's Past Medical History Patient History - Medical: Alzheimer's Disease, Anxiety, Chronic Pain, Depression, Obesity, Osteoarthritis Patient History - Cardiac/Respiratory: Atrial Fibrillation, Asthma, CHF, CVA/ Stroke, Hypertension, Hyperlipidemia, Home O2 Use, CPAP/BiPAP Home Use, Sleep Apnea Patient History - Cancer: No Hx of Cancer Patient History - Surgical Procedures: Back Surgery, Total Hip Replacement, Total Knee Replacement Patient History - Other: None - Family History Brother Family History - Medical: No pertinent hx Father Family History - Cancer: Lung Mother Family History - Cardiac/Respiratory: Hypertension - Social History Living Situations: home Abuse History: No History of abuse Psych History: Hx of Anxiety Smoking Status: Never smoker Alcohol Use: none Drug Use: none - Immunizations Immunizations Up to Date: Yes Hx Pneumococcal Vaccination: No History of Influenza Vaccine: Yes Physical Exam - Physical Exam General Appearance: Present: wd/wn, alert, moderate distress Eye Exam: Normal inspection: bilateral, PERRL: bilateral Ears, Nose, Throat: Present: normal ENT inspection, H, normal pharynx Neck: Present: normal inspection, nontender Respiratory: Present: no respiratory distress, normal breath sounds, no accessory muscle use, chest nontender, lungs clear Cardiovascular/Chest: Present: regular rate, rhythm, no murmur, normal peripheral pulses Gastrointestinal/Abdominal: Present: normal bowel sounds, nontender, nondistended, soft, no organomegaly Rectal Exam: Present: deferred Back Exam: Present: normal inspection, normal range of motion Extremity Exam: Present: decreased range of motion, bony tenderness, joint swelling Neurological Exam: Present: alert, oriented, normal mood/affect Skin Exam: Present: normal color, warm/dry Lymphatic Exam: Present: no adenopathy ED Progress - Vital Signs Patient's Vital Signs:: I have reviewed the patient's vital signs. Vital Signs: Vital Signs 02/24/17 13:34 Temperature 36.4 C L Pulse Rate 88 Respiratory 16 Rate Blood Pressure 162/73 O2 Sat by Pulse 96 Oximetry - X-Ray X-Ray #1 X-Ray: wrist Interpretation: Reviewed by me - Progress/Reassessment Chief Complaint: Upper Extremity Injury/Problem Plan - Plan Plan: The potential exists for the patient to have had a scapholunate ligament disruption. Patient was placed in a cockup wrist splint, she'll be given a prescription for both NSAIDs and something for pain and will be referred to orthopedic surgery for further evaluation. Departure Clinical Impression: Sprain of wrist joint Qualifiers: Encounter type: initial encounter Laterality: right Qualified Code(s): S63.501A - Unspecified sprain of right wrist, initial encounter - Departure Disposition: Home self-care Condition: Good Instructions: Wrist Sprain, Wrist Pain, [id number] Referrals: Tobias Wilde DO [Primary Care Provider] - Morro Jiang MD [Staff Physician] - Prescriptions: Naproxen [Naprosyn] 500 mg PO BID #60 tablet traMADol HCL [Ultram] 50 mg PO QID PRN #20 tablet PRN Reason: Moderate Pain
[2017-02-24] MEDS ORDERED: NAPROXEN SODIUM 550 MG TABLET PO ONE (14:12)
[2017-02-24] MEDS ORDERED: NAPROXEN SODIUM 550 MG TABLET ONE (14:12)
== END 2017-02-24 15:05 | disposition home or self-care (01) ==
LOC: ER 13:31
PROC: 2W3CX1Z Immobilization of Right Lower Arm using Splint (ICD-10-PCS; principal; 2017-02-24)
DX: S63.501A Unspecified sprain of right wrist, initial encounter (principal); I10 Essential (primary) hypertension; I48.91 Unspecified atrial fibrillation; Z79.01 Long term (current) use of anticoagulants; I50.9 Heart failure, unspecified; I63.9 Cerebral infarction, unspecified; F41.9 Anxiety disorder, unspecified; X50.1XXA Overexertion from prolonged static or awkward postures, initial encounter; Y92.009 Unspecified place in unspecified non-institutional (private) residence as the place of occurrence of the external cause

== ENCOUNTER 2017-04-11 09:53 | Emergency (ER) | payer MEDICARE, BC ==
[2017-04-11 10:02] VITALS: BP 167/101
--- NOTE | 2017-04-11 10:39 | ERNOTE ---
Psychological HPI - Date Date of Service: 04/11/17 - General Chief Complaint: Anxiety Source: Reports: patient, RN notes reviewed Exam Limitations: Reports: other - Poor historian - Immun/Allergies/Home Medications Allergies/Adverse Reactions: Allergies amlodipine besylate [From Norvasc] Allergy (Severe, Verified 04/11/17 10:03) Anaphylaxis, TONGUE SWELLING benzocaine Allergy (Severe, Verified 04/11/17 10:03) Anaphylaxis levofloxacin [From Levaquin] Allergy (Severe, Verified 04/11/17 10:03) Anaphylaxis, RASH, ITCHING levothyroxine sodium Allergy (Severe, Verified 04/11/17 10:03) PATCHY SWELLING morphine Adverse Reaction (Intermediate, Verified 04/11/17 10:03) ARRYTHMIA, RASH arrhythmia adhesive Adverse Reaction (Mild, Verified 04/11/17 10:03) BLISTERS rubber Allergy (Mild, Uncoded 04/11/17 10:03) Hives Home Medications: HOME MEDICATIONS Alprazolam 0.5 mg PO BID 02/27/14 [Last Taken Unknown] Pramipexole Di-HCl [Pramipexole Dihydrochloride] 1 mg PO DAILY 02/27/14 [Last Taken Unknown] Gabapentin [Neurontin] 300 mg PO HS 05/17/14 [Last Taken Unknown] Metoprolol Succinate [Toprol Xl] 50 mg PO QPM 05/26/14 [Last Taken Unknown] Albuterol Sulfate [Albuterol Sulfate 2.5 MG/0.5ML] 1 vial IH Q4H PRN 10/11/16 [ Last Taken Unknown] Aspirin [Aspirin EC] 81 mg PO DAILY 10/11/16 [Last Taken Unknown] Montelukast Sodium [Singulair] 10 mg PO QPM 10/11/16 [Last Taken Unknown] Atorvastatin Calcium 40 mg PO HS 11/02/16 [Last Taken Unknown] Dabigatran Etexilate Mesylate [Pradaxa] 150 mg PO BID 11/02/16 [Last Taken Unknown] Furosemide [Lasix] 40 mg PO DAILY PRN #30 tablet 11/12/16 [Last Taken Unknown] Folic Acid 1 mg PO DAILY 02/01/17 [Last Taken Unknown] Naproxen [Naprosyn] 500 mg PO BID #60 tablet 02/24/17 [Last Taken Unknown] traMADol HCL [Ultram] 50 mg PO QID PRN #20 tablet 02/24/17 [Last Taken Unknown] - History of Present Illness Narrative: Letty is a 71-year-old female who presents to the emergency Department by private vehicle for anxiety. She reports that she used to be on Prozac, but she is no longer prescribe it and she does not know why. She believes it was discontinued during hospitalization for a joint replacement some time ago. She does take Xanax twice a day. She saw her primary care provider 2 days ago, but she does not know what was prescribed at that visit. She reports that she paces around her apartment and plans at her hair like she is going to pull it out. She is afraid to be in the room with the doors closed. She also reports that she would be unable to even get in a tent. On review of her clinic chart, she has apparently not been on Prozac for some time but was started on Cymbalta 2 months ago. She takes 30 mg a day of this. She was prescribed amitriptyline 2 days ago, but she has not started this because she reports being unaware she was given this. Time Seen by Provider: 04/11/17 10:12 Arrived by: Reports: private car Onset/duration: Reports: gradual onset Associated Symptoms: Reports: depressed. Denies: angry, frustrated, agitated, hostile, paranoid, confused, hallucinating, suicidal thoughts Prior Treament: Reports: recently seen, treated by physician, similar symptoms before Review of Systems - Review of Systems Constitutional: Present: no symptoms reported EYE: Present: no symptoms reported ENT: Present: no symptoms reported Respiratory: Absent: shortness of breath, cough Cardiology: Absent: chest pain, palpitations Gastrointestinal/Abdominal: Absent: eating less, drinking less Genitourinary: Present: no symptoms reported Musculoskeletal: Present: muscle pain, joint pain Skin: Present: no symptoms reported Neurological: Present: no symptoms reported Endocrine: Present: no symptoms reported Hematologic/Lymphatic: Present: no symptoms reported Psych: Present: anxiety, emotional problems - Patient's Past Medical History Patient History - Medical: Alzheimer's Disease, Anxiety, Chronic Pain, Depression, Obesity, Osteoarthritis Patient History - Cardiac/Respiratory: Atrial Fibrillation, Asthma, CHF, CVA/ Stroke, Hypertension, Hyperlipidemia, Home O2 Use, CPAP/BiPAP Home Use, Sleep Apnea Patient History - Cancer: No Hx of Cancer Patient History - Surgical Procedures: Back Surgery, Total Hip Replacement, Total Knee Replacement Patient History - Other: None LMP (females 10-50): Menopausal - Family History Brother Family History - Medical: No pertinent hx Father Family History - Cancer: Lung Mother Family History - Cardiac/Respiratory: Hypertension - Social History Living Situations: alone Abuse History: No History of abuse Psych History: Hx of Anxiety, Current tx/ever been on anti-depressants or anti- anxiety meds Smoking Status: Never smoker Alcohol Use: none Drug Use: none - Immunizations Immunizations Up to Date: Yes Hx Pneumococcal Vaccination: No History of Influenza Vaccine: Yes Physical Exam - Physical Exam General Appearance: Present: alert, anxious, obese, other - appropriately dressed Respiratory: Present: no respiratory distress, normal breath sounds, no accessory muscle use, lungs clear Cardiovascular/Chest: Present: regular rate, rhythm, no murmur Neurological Exam: Present: alert, oriented, normal mood/affect, other - Steady gait with walker Skin Exam: Present: normal color, warm/dry ED Progress - Vital Signs Patient's Vital Signs:: I have reviewed the patient's vital signs. Vital Signs: Vital Signs 04/11/17 09:59 Temperature 36.4 C L Pulse Rate 86 Respiratory 14 Rate Blood Pressure 167/101 O2 Sat by Pulse 96 Oximetry - Progress/Reassessment Chief Complaint: Anxiety Progress:: Improved Departure Clinical Impression: Anxiety - Departure Disposition: Home Follow Up Needed Condition: Stable Instructions: Panic Attacks, [id number] Additional Instructions: Start the amitriptyline that Dr. Wilde prescribed last . This is for anxiety/depression and chronic pain. This should already be at [facility]. Increase duloxetine (Cymbalta) to 2 tablets once a day. This is also for anxiety and depression. This was prescribed in February to take the place of your Prozac, but you are taking a low dose and it can be increased. Call Dr. Wilde' s office next week and let them know we increased this because you will run out before you are supposed to. Referrals: Tobias Wilde, [Primary Care Provider] -
== END 2017-04-11 10:47 | disposition home or self-care (01) ==
LOC: ER 09:53
DX: F41.9 Anxiety disorder, unspecified (principal); Z79.899 Other long term (current) drug therapy

== ENCOUNTER 2017-08-27 12:39 | Emergency (ER) | payer MEDICARE, BC ==
[2017-08-27 13:18] LABS: Hematocrit 38.7 % (37.0-47.0); Mean Cell Volume 92.4 fl (78-100); Mean Corpuscular Hgb Conc 33.6 g/dl (32-36); Neutrophil # 6.7 K/mm3 (1.3-6.0); Neutrophil % 69.3 % (42-75.0); Platelet Count 281 K/mm3 (150-450); Red Blood Count 4.19 M/mm3 (4.2-5.4); White Blood Count 9.7 K/mm3 (4.0-10.5)
--- NOTE | 2017-08-27 13:22 | ERNOTE ---
Trauma/Assault HPI - Narrative Date of Service: 08/27/17 - General Stated Complaint: FALL Time Seen by Provider: 08/27/17 13:03 Source: patient Exam Limitations: no limitations - Immun/Allergies/Home Medications Immunizations: IMMUNIZATION HX Immunizations Up to Date Yes History of Influenza Vaccine No Hx Pneumococcal Vaccination No Allergies/Adverse Reactions: Allergies amlodipine besylate [From Norvasc] Allergy (Severe, Verified 08/27/17 12:52) Anaphylaxis, TONGUE SWELLING benzocaine Allergy (Severe, Verified 08/27/17 12:52) Anaphylaxis levofloxacin [From Levaquin] Allergy (Severe, Verified 08/27/17 12:52) Anaphylaxis, RASH, ITCHING levothyroxine sodium Allergy (Severe, Verified 08/27/17 12:52) PATCHY SWELLING morphine Adverse Reaction (Intermediate, Verified 08/27/17 12:52) ARRYTHMIA, RASH arrhythmia adhesive Adverse Reaction (Mild, Verified 08/27/17 12:52) BLISTERS rubber Allergy (Mild, Uncoded 08/27/17 12:52) Hives Home Medications: HOME MEDICATIONS Alprazolam 0.5 mg PO BID 02/27/14 [Last Taken Unknown] Metoprolol Succinate [Toprol Xl] 50 mg PO QPM 05/26/14 [Last Taken Unknown] Albuterol Sulfate [Albuterol Sulfate 2.5 MG/0.5ML] 1 vial IH Q4H PRN 10/11/16 [ Last Taken Unknown] Aspirin [Aspirin EC] 81 mg PO DAILY 10/11/16 [Last Taken Unknown] Montelukast Sodium [Singulair] 10 mg PO QPM 10/11/16 [Last Taken Unknown] Atorvastatin Calcium 40 mg PO HS 11/02/16 [Last Taken Unknown] traMADol HCL [Ultram] 50 mg PO QID PRN #20 tablet 02/24/17 [Last Taken Unknown] Amitriptyline HCl [Elavil] 25 mg PO HS 06/15/17 [Last Taken Unknown] Duloxetine HCl [Cymbalta] 60 mg PO DAILY 06/15/17 [Last Taken Unknown] Furosemide [Lasix] 60 mg PO DAILY 06/15/17 [Last Taken Unknown] Meloxicam [Mobic] 15 mg PO DAILY 06/15/17 [Last Taken Unknown] Potassium Chloride [Klor-Con M10] 20 meq PO DAILY 06/15/17 [Last Taken Unknown] Pramipexole Di-HCl [Mirapex] 1.5 mg PO QAM 06/15/17 [Last Taken Unknown] Pramipexole Di-HCl [Mirapex] 3 mg PO HS 06/15/17 [Last Taken Unknown] Warfarin Sodium [Coumadin] 5 mg PO DAILY 06/15/17 [Last Taken Unknown] - History of Present Illness Narrative: Pt. comes in with c/o R shoulder and head pain after falling and hitting her head and landing on the R side of body on the floor. Pt. states that she thinks she tripped over her own two feet when she fell. Pt. denies any Dizziness , lightheadedness, SOB, CP, NVD, recent illness, or prehospital treatment. Review of Systems - Review of Systems Constitutional: Present: no symptoms reported. Absent: recent illness, fever, chills, weakness, fatigue, malaise EYE: Present: no symptoms reported ENT: Present: no symptoms reported Respiratory: Present: no symptoms reported. Absent: shortness of breath, cough , wheezing Cardiology: Present: no symptoms reported Gastrointestinal/Abdominal: Present: no symptoms reported. Absent: nausea, vomiting, diarrhea, abdominal pain Genitourinary: Present: no symptoms reported Musculoskeletal: Present: neck pain - R lateral, joint pain - R shoulder Skin: Present: no symptoms reported Neurological: Present: no symptoms reported. Absent: headache, dizziness/light- headedness, numbness, tingling Hematologic/Lymphatic: Present: easy bruising, easy bleeding All Other Systems: All systems neg except as marked - Patient's Past Medical History Patient History - Medical: Alzheimer's Disease, Anxiety, Chronic Pain, Depression, Obesity, Osteoarthritis Patient History - Cardiac/Respiratory: Atrial Fibrillation, Asthma, CHF, CVA/ Stroke, Hypertension, Hyperlipidemia, Home O2 Use, CPAP/BiPAP Home Use, Sleep Apnea Patient History - Cancer: No Hx of Cancer Patient History - Surgical Procedures: Back Surgery, Total Hip Replacement, Total Knee Replacement Patient History - Other: None - Family History Brother Family History - Medical: No pertinent hx Father Family History - Cancer: Lung Mother Family History - Cardiac/Respiratory: Hypertension - Social History Living Situations: home Abuse History: No History of abuse Psych History: Hx of Anxiety, Current tx/ever been on anti-depressants or anti- anxiety meds - Immunizations Immunizations Up to Date: Yes Hx Pneumococcal Vaccination: No History of Influenza Vaccine: No Physical Exam - Physical Exam General Appearance: Present: wd/wn, alert, no apparent distress Head Exam: Present: no tenderness w palpation, contusions - R lateral occiput Eye Exam: Normal inspection: bilateral, PERRL: bilateral, EOMI: bilateral Ears, Nose, Throat: Present: normal ENT inspection, normal pharynx Neck: Present: supple, full range of motion, tender lateral - post R. Absent: lymphadenopathy (R), lymphadenopathy (L) Respiratory: Present: no respiratory distress, normal breath sounds, no accessory muscle use, chest nontender, lungs clear. Absent: rales, rhonchi, wheezing Cardiovascular/Chest: Present: no murmur, normal peripheral pulses, tachycardia , irregularly irregular Gastrointestinal/Abdominal: Present: normal bowel sounds, nontender Back Exam: Present: normal inspection, normal range of motion, no CVA tenderness , no vertebral tenderness Extremity Exam: Present: no edema, decreased range of motion - abduction R shoulder, bony tenderness - R humerus proximal Neurological Exam: Present: alert, oriented, normal mood/affect, no motor/ sensory deficits - for pt, motor weakness - generalized normal for pt Skin Exam: Present: normal color, warm/dry. Absent: pallor, skin rash Detailed Trauma Exam Best Eye Response (Linn): (4) open spontaneously Best Verbal Response (Linn): (5) oriented Best Motor Response (Linn): (6) obeys commands Linn Total: 15 General Appearance: Present: alert, no acute distress Head Injury: Present: normal inspection, no tenderness on palpate ED Progress - Results and Orders Patient's Lab Results:: I have reviewed the patient's lab results. Results and Orders: Abnormal Lab Results 08/27/17 08/27/17 08/27/17 Range/Units 13:16 13:16 13:16 RBC 4.19 L (4.2-5.4) M/mm3 RDW 15.0 H (11.5-14.0) % Immature Gran % (Auto) 0.50 H (0.001-0.429) % Immature Gran # (Auto) 0.05 H (0.000-0.0310) K/mm3 Lymphocytes % 19.8 L (20-51) % Eosinophils % 4.0 H (0.0-3.0) % Neutrophils # 6.7 H (1.3-6.0) K/mm3 PT 12.8 H (9.0-11.0) Seconds INR (Anticoag Therapy) 1.28 H (0.90-1.10) INR Potassium 3.1 L (3.4-4.6) mmol/L Est GFR (Non-Af Amer) 49 L (60-130) mL/min Random Glucose 148 H (70-110) mg/dL Total Bilirubin 1.5 H (0.0-1.1) mg/dL ALT 17 L (19-67) U/L Urine Blood (NEGATIVE) /ul Urine WBC (0-5) /hpf 08/27/17 Range/Units 13:28 RBC (4.2-5.4) M/mm3 RDW (11.5-14.0) % Immature Gran % (Auto) (0.001-0.429) % Immature Gran # (Auto) (0.000-0.0310) K/mm3 Lymphocytes % (20-51) % Eosinophils % (0.0-3.0) % Neutrophils # (1.3-6.0) K/mm3 PT (9.0-11.0) Seconds INR (Anticoag Therapy) (0.90-1.10) INR Potassium (3.4-4.6) mmol/L Est GFR (Non-Af Amer) (60-130) mL/min Random Glucose (70-110) mg/dL Total Bilirubin (0.0-1.1) mg/dL ALT (19-67) U/L Urine Blood 25 H (NEGATIVE) /ul Urine WBC Trace H (0-5) /hpf - Vital Signs Patient's Vital Signs:: I have reviewed the patient's vital signs. Vital Signs: Vital Signs 08/27/17 12:48 Temperature 36.4 C L Pulse Rate 118 H Respiratory 15 Rate Blood Pressure 159/105 O2 Sat by Pulse 97 Oximetry - X-Ray X-Ray #1 X-Ray: shoulder Interpretation: Reviewed by me X-ray Comments: No acute osseous abnormality - CT/Ultrasound CT/Ultrasound Narrative: CT head and neck without any acute osseous abnormality. - Progress/Reassessment Chief Complaint: Fall Progress:: Unchanged Departure Clinical Impression: Right shoulder strain Qualifiers: Encounter type: initial encounter Qualified Code(s): S46.911A - Strain of unspecified muscle, fascia and tendon at shoulder and upper arm level, right arm , initial encounter Head injury Qualifiers: Encounter type: initial encounter Qualified Code(s): S09.90XA - Unspecified injury of head, initial encounter - Departure Disposition: Home self-care Condition: Good Instructions: Tendon Injury Additional Instructions: Please follow up with orthopedics next week by calling offce for appointment. Please continue mobic and tramadol Referrals: Tobias Wilde DO [Primary Care Provider] - Critical Care Time - Critical Care Critical Time Spent:: No Total time (mins) Spent:: 0
[2017-08-27 13:33] LABS: Albumin * 3.7 gm/dl (3.4-5.0); Anion Gap 12.8 mmol/L (6.8-13.8); BUN/Creatinine Ratio 12.1 (9.0-21.6); Bilirubin, Total 1.5 mg/dL (0.0-1.1); Ca. Corrected For Albumin 9.1 mg/dL (8.4-10.2); Calcium * 9.2 mg/dL (7.9-10.9); Carbon Dioxide 31.3 mmol/L (24-32.6); Potassium 3.1 mmol/L (3.4-4.6); Total Protein 7.9 gm/dL (6.2-8.2)
[2017-08-27 13:40] LABS: Prothrombin Time (Patient) 12.8 Seconds (9.0-11.0)
[2017-08-27 13:41] LABS: INR 1.28 INR (0.90-1.10); Partial Thrombolplastin Time 28.3 Seconds (24-32)
[2017-08-27 13:46] LABS: Urine Bilirubin Negative (NEGATIVE); Urine Blood 25 /ul (NEGATIVE); Urine Ketone Negative (NEGATIVE); Urine Nitrite Negative (NEGATIVE); Urine Protein Negative (NEGATIVE); Urine Urobilinogen Normal (NORMAL); Urine pH 5.5 pH (5.0-7.0)
[2017-08-27 13:47] LABS: Urine Appearance Clear; Urine Bacteria TRACE; Urine Color Yellow; Urine RBC None Seen /hpf (0-5); Urine WBC TRACE /hpf (0-5)
[2017-08-27 15:13] VITALS: BP 119/65
== END 2017-08-27 15:08 | disposition home or self-care (01) ==
LOC: ER 12:39
PROC: 0T9B7ZZ Drainage of Bladder, Via Natural or Artificial Opening (ICD-10-PCS; principal; 2017-08-27)
DX: S46.911A Strain of unspecified muscle, fascia and tendon at shoulder and upper arm level, right arm, initial encounter (principal); S09.90XA Unspecified injury of head, initial encounter; W01.0XXA Fall on same level from slipping, tripping and stumbling without subsequent striking against object, initial encounter; Z79.01 Long term (current) use of anticoagulants

== ENCOUNTER 2017-09-05 19:45 | Emergency (ER) | payer MEDICARE, BC ==
[2017-09-05 21:11] VITALS: BP 154/70
--- NOTE | 2017-09-05 21:18 | ERNOTE ---
Upper Extremity HPI - Narrative Date of Service: 09/05/17 - General Extremities Pain Location: wrist: left - patient felll a few weeks ago had other x-rays but has had wrist pain that wqas not imaged Time Seen by Provider: 09/05/17 20:09 Source: patient Exam Limitations: no limitations - Immun/Allergies/Home Medications Immunizations: IMMUNIZATION HX Immunizations Up to Date No History of Influenza Vaccine Yes Hx Pneumococcal Vaccination Yes Allergies/Adverse Reactions: Allergies Allergy/AdvReac Type Severity Reaction Status Date / Time amlodipine besylate Allergy Severe Anaphylaxis, Verified 08/27/17 12:52 [From Norvasc] TONGUE SWELLING benzocaine Allergy Severe Anaphylaxis Verified 08/27/17 12:52 levofloxacin [From Levaquin] Allergy Severe Anaphylaxis, Verified 08/27/17 12:52 RASH, ITCHING levothyroxine sodium Allergy Severe PATCHY Verified 08/27/17 12:52 SWELLING morphine AdvReac Intermediate ARRYTHMIA, Verified 08/27/17 12:52 RASH adhesive AdvReac Mild BLISTERS Verified 08/27/17 12:52 rubber Allergy Mild Hives Uncoded 08/27/17 12:52 Home Medications: HOME MEDICATIONS Alprazolam 0.5 mg PO BID 02/27/14 [Last Taken Unknown] Metoprolol Succinate [Toprol Xl] 50 mg PO QPM 05/26/14 [Last Taken Unknown] Albuterol Sulfate [Albuterol Sulfate 2.5 MG/0.5ML] 1 vial IH Q4H PRN 10/11/16 [ Last Taken Unknown] Aspirin [Aspirin EC] 81 mg PO DAILY 10/11/16 [Last Taken Unknown] Montelukast Sodium [Singulair] 10 mg PO QPM 10/11/16 [Last Taken Unknown] Atorvastatin Calcium 40 mg PO HS 11/02/16 [Last Taken Unknown] traMADol HCL [Ultram] 50 mg PO QID PRN #20 tablet 02/24/17 [Last Taken Unknown] Duloxetine HCl [Cymbalta] 60 mg PO DAILY 06/15/17 [Last Taken Unknown] Furosemide [Lasix] 60 mg PO DAILY 06/15/17 [Last Taken Unknown] Meloxicam [Mobic] 15 mg PO DAILY 06/15/17 [Last Taken Unknown] Pramipexole Di-HCl [Mirapex] 1.5 mg PO QAM 06/15/17 [Last Taken Unknown] Pramipexole Di-HCl [Mirapex] 3 mg PO HS 06/15/17 [Last Taken Unknown] HYDROcodone/ACETAMINOPHEN [[place] 5-325] 1 tab PO Q4H PRN #40 tab 09/05/17 [Last Taken Unknown] - History of Present Illness Narrative: pain has gotten progressively worse over time Occurred: other - a few weeks ago Location of Incident: home Severity: moderate Method of Injury: Reports: fell, direct blow Reason for Fall: Reports: tripped Loss of Consciousness: Reports: no loss of consciousness Modifying Factors - (Improves): Reports: other - nothing Modifying Factors - (Worsens): Reports: movement Associated Symptoms: Reports: loss of power (lt arm) Other Injuries: Reports: head Prior Treament: Reports: recently seen, treated by physician Review of Systems - Narrative Narrative: patient presents with no other complaints today - Review of Systems Constitutional: Present: See HPI, weakness EYE: Present: no symptoms reported ENT: Present: no symptoms reported Respiratory: Present: no symptoms reported Cardiology: Present: no symptoms reported Gastrointestinal/Abdominal: Present: no symptoms reported Genitourinary: Present: no symptoms reported Musculoskeletal: Present: See HPI, joint pain, joint swelling Skin: Present: no symptoms reported Neurological: Present: no symptoms reported Endocrine: Present: no symptoms reported Hematologic/Lymphatic: Present: no symptoms reported Psych: Present: no symptoms reported All Other Systems: All systems neg except as marked - Narrative Narrative: patient c/o wrist pain - Patient's Past Medical History Patient History - Medical: Alzheimer's Disease, Anxiety, Chronic Pain, Depression, Obesity, Osteoarthritis Patient History - Cardiac/Respiratory: Atrial Fibrillation, Asthma, CHF, CVA/ Stroke, Hypertension, Hyperlipidemia, Home O2 Use, CPAP/BiPAP Home Use, Sleep Apnea Patient History - Cancer: No Hx of Cancer Patient History - Surgical Procedures: Back Surgery, Total Hip Replacement, Total Knee Replacement Patient History - Other: None LMP (females 10-50): Menopausal - Family History Family History:: no untoward family reactions to anesthesia, no family history of clotting disorders - Family History Brother Family History - Medical: No pertinent hx Family History - Cardiac/Respiratory: No pertinent hx Family History - Cancer: No pertinent family hx Father Family History - Medical: Family History - Cardiac/Respiratory: No pertinent hx Family History - Cancer: Lung Mother Family History - Medical: Family History - Cardiac/Respiratory: Hypertension Family History - Cancer: No pertinent family hx - Social History Living Situations: alone Abuse History: No History of abuse Psych History: Hx of Anxiety, Current tx/ever been on anti-depressants or anti- anxiety meds Smoking Status: Never smoker Have you smoked in the past 12 months: No Do you dip or chew tobacco: No Patient requests Smoking Cessation Consult: No Initiate information on Smoking Cessation: No Alcohol Use: none Drug Use: none - Immunizations Immunizations Up to Date: No Hx Pneumococcal Vaccination: Yes History of Influenza Vaccine: Yes Physical Exam - Physical Exam Narrative: patient c/o pain and swelling General Appearance: Present: wd/wn, mild distress Head Exam: Present: normal inspection, no evidence of injury Eye Exam: Normal inspection: bilateral, PERRL: bilateral, EOMI: bilateral Ears, Nose, Throat: Present: normal ENT inspection Neck: Present: normal inspection, nontender Respiratory: Present: no respiratory distress, normal breath sounds, no accessory muscle use, chest nontender, lungs clear Cardiovascular/Chest: Present: regular rate, rhythm, no murmur, normal peripheral pulses Peripheral Pulses: N=norm/S=strong/W=weak/B=bound/A=absent: Carotid (R): Normal , Carotid (L): Normal, Radial (R): Normal, Radial (L): Normal, Femoral (R): Normal, Femoral (L): Normal, Dorsalis-pedis (R): Normal Gastrointestinal/Abdominal: Present: normal bowel sounds, nontender, nondistended, soft, no organomegaly Back Exam: Present: normal inspection, normal range of motion, no CVA tenderness , no vertebral tenderness Extremity Exam: Present: decreased range of motion - left wrist and forarm, bony tenderness, joint swelling Neurological Exam: Present: alert, oriented, normal mood/affect, no motor/ sensory deficits DTR: N=norm/NB=norm/brisk/A=abs/DD=dull/dimin/HC=hyperactive: Bicep (R): Normal , Bicep (L): Normal, Tricep (R): Normal, Tricep (L): Normal, Knee (R): Normal, Knee (L): Normal, Ankle (R): Normal, Ankle (L): Normal Skin Exam: Present: normal color, warm/dry Lymphatic Exam: Present: no adenopathy ED Progress - Vital Signs Vital Signs: Vital Signs 09/05/17 19:59 Temperature 36.1 C L Pulse Rate 83 Respiratory 16 Rate Blood Pressure 169/83 O2 Sat by Pulse 95 Oximetry - X-Ray X-Ray #1 X-Ray: wrist - x-rays reviewed no apparrent fracture - Progress/Reassessment Chief Complaint: Upper Extremity Injury/Problem Progress:: Improved - Transfer of Care Expected Disposition: Discharge Plan - Plan Plan: plan to discharge patient, f/u with fp Departure Clinical Impression: Left wrist sprain, Sprain of wrist joint - Departure Disposition: Home Follow Up Needed Condition: Fair Instructions: Wrist Sprain Referrals: Tobias Wilde DO [Primary Care Provider] - Prescriptions: HYDROcodone/ACETAMINOPHEN [[place] 5-325] 1 tab PO Q4H PRN #40 tab PRN Reason: Pain
== END 2017-09-05 21:20 | disposition home or self-care (01) ==
LOC: ER 19:45
DX: S63.502A Unspecified sprain of left wrist, initial encounter (principal); W01.0XXA Fall on same level from slipping, tripping and stumbling without subsequent striking against object, initial encounter; G89.29 Other chronic pain; M19.90 Unspecified osteoarthritis, unspecified site; I48.91 Unspecified atrial fibrillation; Z79.01 Long term (current) use of anticoagulants; I50.9 Heart failure, unspecified; Z86.73 Personal history of transient ischemic attack (TIA), and cerebral infarction without residual deficits; I10 Essential (primary) hypertension; E78.5 Hyperlipidemia, unspecified; F41.8 Other specified anxiety disorders; G30.9 Alzheimer's disease, unspecified; F02.80 Dementia in other diseases classified elsewhere, unspecified severity, without behavioral disturbance, psychotic disturbance, mood disturbance, and anxiety

== ENCOUNTER 2018-04-19 12:53 | Observation (INO) | payer BC, MEDICARE ==
--- NOTE | 2018-04-19 13:33 | ERNOTE ---
Chest Pain/Cardiac HPI Chief Complaint: Chest Pain Time Seen by Provider: 04/19/18 13:13 Source: patient Exam Limitations: no limitations Immunizations: IMMUNIZATION HX Immunizations Up to Date Yes History of Influenza Vaccine Yes Hx Pneumococcal Vaccination Yes Allergies/Adverse Reactions: Allergies amlodipine [From Norvasc] Allergy (Severe, Verified 04/19/18 13:06) Diarrhea amlodipine besylate [From Norvasc] Allergy (Severe, Verified 04/19/18 13:06) Anaphylaxis, TONGUE SWELLING benzocaine Allergy (Severe, Verified 04/19/18 13:06) Anaphylaxis levofloxacin [From Levaquin] Allergy (Severe, Verified 04/19/18 13:06) Anaphylaxis, RASH, ITCHING levothyroxine sodium Allergy (Severe, Verified 04/19/18 13:06) PATCHY SWELLING rosuvastatin [From Crestor] Allergy (Unknown, Verified 04/19/18 13:06) Other morphine Adverse Reaction (Intermediate, Verified 04/19/18 13:06) ARRYTHMIA, RASH arrhythmia adhesive Adverse Reaction (Mild, Verified 04/19/18 13:06) BLISTERS rubber Allergy (Mild, Uncoded 04/19/18 13:06) Hives Home Medications: HOME MEDICATIONS Metoprolol Succinate [Toprol Xl] 50 mg PO QPM 05/26/14 [Last Taken Unknown] Aspirin [Aspirin EC] 81 mg PO DAILY 10/11/16 [Last Taken Unknown] Montelukast Sodium [Singulair] 10 mg PO QPM 10/11/16 [Last Taken Unknown] Atorvastatin Calcium 40 mg PO HS 11/02/16 [Last Taken Unknown] Duloxetine HCl [Cymbalta] 60 mg PO DAILY 06/15/17 [Last Taken Unknown] Pramipexole Di-HCl [Mirapex] 3 mg PO HS 06/15/17 [Last Taken Unknown] Albuterol Sulfate [Albuterol Sulfate 2.5 MG/0.5ML] 1 vial IH Q4H PRN 01/20/18 [ Last Taken Unknown] Potassium Chloride [Klor-Con 10] 10 meq PO DAILY #30 tablet.sa 01/20/18 [Last Taken Unknown] ALPRAZolam [Xanax] 0.5 mg PO BID 04/09/18 [Last Taken Unknown] pramipexole 1.5 mg tablet 1.5 mg PO .COMPLEX #90 tab 04/12/18 [Last Taken Unknown] furosemide 40 mg tablet 40 mg PO DAILY #30 tab 04/19/18 [Last Taken Unknown] Narrative: Patient is here for chest pain that started a little while ago when she got done eating lunch. She describes it as pressure that radiates to her back and neck. She is rather vague regarding her symptoms and her past history, states that she has never had any heart problems of any kind but EKG form 10 days ago shows a-fib and there are prior records mentioning the diagnosis. Patient was seen in the ER in 01/20 and diagnosed with polymyalgia rheumatica and started on prednisone which she only took for a few days Date (Duration): 04/19/18 Time (Timing): 12:00 Timing: constant Severity/Quality: severe, sharp Location: central Chest Pain Radiation: neck, shoulders, back Activities at Onset: none Modifying Factors - Improves: Present: nothing Modifying Factors - Worsens: Present: breathing Nitro Today/Relief: no nitro taken today Aspirin Treatment Today: 81 mg x 1 Associated Symptoms: Present: denies symptoms. Absent: headache, vomiting Prior Chest Pain/Cardiac Workup: Reports: no prior cardiac workup. Denies: heart attack Prior Treatment: Reports: recently seen. Denies: currently on antibiotics Review of Systems - Review of Systems Constitutional: Absent: recent illness, fever, chills EYE: Absent: vision changes ENT: Absent: nose congestion, sore throat Respiratory: Absent: shortness of breath Cardiology: Present: See HPI, chest pain Gastrointestinal/Abdominal: Absent: nausea, abdominal pain Genitourinary: Present: no symptoms reported Musculoskeletal: Present: back pain - chronic Neurological: Absent: headache Medical History (Last Updated 04/19/18 @ 15:49 by Shavonne Monsivais MD) Atrial fibrillation Torn rotator cuff Anxiety CHF (congestive heart failure) CVA (cerebral vascular accident) Hyperlipidemia Hypertension Surgical History: Surgical History (Last Reviewed 04/19/18 @ 15:49 by Shavonne Monsivais MD) Hx of bilateral hip replacements Hx of total knee replacement Social History: Preferred Language South African Do you have any confucianism or No cultural preference? Smoking Status Never smoker Abuse History No History of abuse Psych History Hx of Anxiety,Currently on Meds Alcohol Use none Drug Use none Physical Exam - Physical Exam General Appearance: Present: wd/wn, alert, no apparent distress, anxious, obese Ears, Nose, Throat: Present: normal pharynx Respiratory: Present: no respiratory distress, no accessory muscle use, chest nontender, lungs clear, decreased breath sounds Cardiovascular/Chest: Present: tachycardia, irregularly irregular Gastrointestinal/Abdominal: Present: nontender, nondistended Extremity Exam: Present: no edema Neurological Exam: Present: alert, oriented, normal mood/affect Skin Exam: Present: normal color, warm/dry ED Progress - Results and Orders Patient's Lab Results:: I have reviewed the patient's lab results. - Vital Signs Patient's Vital Signs:: I have reviewed the patient's vital signs. Vital Signs: Vital Signs 04/19/18 12:59 04/19/18 13:16 Temperature 36.2 C Pulse Rate 127 H 119 H Respiratory Rate 24 H Blood Pressure 161/83 H O2 Sat by Pulse Oximetry 93 - EKG EKG: atrial fibrillation, other - HR116, PVCs EKG read: Interp. by me - X-Ray X-Ray #1 X-Ray: chest - no acute findings Interpretation: Reviewed by me - Progress/Reassessment Chief Complaint: Chest Pain Progress Note-Subjective: 04/19/18 14:15 chest pain much better after nitro patient states that she is not taking all her medications as she has not been able to afford them, she is out of her RLS meds, not sure which other ones, She stopped taking blood thinners quite a while ago (states money as the reason) 04/19/18 15:20 discussed results with patient, chest pain much better 04/19/18 15:[address] Dowsn, okay to admit for observation for chest pain and afib with RVR they have made attempts in the past to help her with compliance Departure Clinical Impression: Atrial fibrillation with RVR Chest pain Qualifiers: Chest pain type: unspecified Qualified Code(s): R07.9 - Chest pain, unspecified - Departure Disposition: Still a patient Condition: Good
[2018-04-19] MEDS: NITROGLYCERIN 0.4 MG/TAB BTL SL SCH ×4 (13:38→17:02)
[2018-04-19 14:09] LABS: Hematocrit 42.2 % (37.0-47.0); Hemoglobin 13.9 gm/dL (12.5-16.0); Mean Cell Volume 94.6 fl (78-100); Mean Corpuscular Hemoglobin 31.2 pg (27-31); Mean Corpuscular Hgb Conc 32.9 g/dl (32-36); Neutrophil # 11.7 K/mm3 (1.3-6.0); Neutrophil % 78.3 % (42-75.0); Platelet Count 294 K/mm3 (150-450); Red Blood Count 4.46 M/mm3 (4.2-5.4); White Blood Count 14.9 K/mm3 (4.0-10.5)
[2018-04-19 14:22] LABS: ALT 16 U/L (19-67); AST 16 U/L (0-48); Albumin * 3.4 gm/dl (3.4-5.0); Alkaline Phosphatase * 103 U/L (50-170); Anion Gap 9.4 mmol/L (6.8-13.8); BUN/Creatinine Ratio 8.8 (9.0-21.6); Bilirubin, Total 0.7 mg/dL (0.0-1.1); Blood Urea Nitrogen 9 mg/dL (3-23); Ca. Corrected For Albumin 8.9 mg/dL (8.4-10.2); Calcium * 8.7 mg/dL (7.9-10.9); Carbon Dioxide 35.2 mmol/L (24-32.6); Chloride 100 mmol/L (97-106); Glucose * 159 mg/dL (70-110); Potassium 3.6 mmol/L (3.4-4.6); Sodium 141 mmol/L (132-142); Total Protein 6.8 gm/dL (6.2-8.2); Troponin I Less than 0.017 ng/ml (0.00-0.10)
[2018-04-19] MEDS ORDERED: METOPROLOL TARTRATE 25 MG TABLET PO ONE (15:43)
[2018-04-19] MEDS ORDERED: METOPROLOL TARTRATE 25 MG TABLET ONE (15:45)
[2018-04-19] MEDS ORDERED: ASPIRIN 81 MG TAB.CHEW PO ONE (15:48)
[2018-04-19] MEDS ORDERED: ASPIRIN 81 MG TAB.CHEW ONE (15:50)
[2018-04-19] MEDS ORDERED: ALBUTEROL SULFATE 2.5 MG/0.5 ML VIAL.NEB IH PRN (17:07)
[2018-04-19] MEDS: ALPRAZolam 0.5 MG TABLET PO SCH (20:48)
[2018-04-19] MEDS ORDERED: ATORVASTATIN CALCIUM 40 MG PO SCH (21:00)
[2018-04-19] MEDS ORDERED: PRAMIPEXOLE DI-HCL 0.5 MG TABLET PO SCH (21:00)
[2018-04-19] MEDS ORDERED: ACETAMINOPHEN 500 MG TABLET PO PRN (23:41)
[2018-04-20] MEDS ORDERED: POTASSIUM CHLORIDE 10 MEQ TABLET.SA PO SCH (09:00)
[2018-04-20] MEDS ORDERED: ASPIRIN 81 MG TABLET.DR PO SCH (09:00)
[2018-04-20] MEDS ORDERED: FUROSEMIDE 40 MG TABLET PO SCH (09:00)
[2018-04-20] MEDS ORDERED: DULoxetine HCL 30 MG CAPSULE.SA PO SCH (09:00)
[2018-04-20] MEDS ORDERED: PRAMIPEXOLE DI-HCL 0.5 MG TABLET PO SCH (09:00)
[2018-04-20] MEDS ORDERED: METOPROLOL TARTRATE 100 MG TABLET PO SCH (09:00)
[2018-04-20] MEDS: ALPRAZolam 0.5 MG TABLET PO SCH (10:32)
--- NOTE | 2018-04-20 12:35 | HP ---
Chief Complaint - Chief Complaint Date of Service: 04/19/18 Time of Service: 16:00 Chief Complaint: Weakness, palpitations History of Present Illness: Letty is a 72 yo female with known atrial fibrillation. She reports not affording her metoprolol succinate recently and has not been taking it. She has recently noticed more shortness of breath and palpitations. She presented to the [facility] ER and was found to be in atrial fibrillation with RVR. She was given a dose of metoprolol and heart rate improved. Medical History (Last Updated 04/26/18 @ 09:05 by Viviaen Saeed) Alzheimers disease Anxiety Atrial fibrillation Onset Date: ~10/2007 CHF (congestive heart failure) Onset Date: ~11/11/16 CVA (cerebral vascular accident) Hyperlipidemia Hypertension Torn rotator cuff Asthma Depression Hypercholesterolemia Hyperhidrosis Morbid obesity Obstructive sleep apnea Osteoarthrosis Onset Date: ~09/07/07 Restless legs Spinal stenosis Weakness of both lower extremities Onset Date: ~01/20/17 Hemiparesis Ischemic stroke Onset Date: ~10/11/16 Knee pain Onset Date: ~09/07/07 Lower extremity edema Onset Date: ~10/04/13 Wrist pain, right Surgical History: Surgical History (Last Updated 04/26/18 @ 08:50 by Viviane Saeed) Hx of bilateral hip replacements Hx of total knee replacement Onset Date: ~2004 Bone spur H/O arthroplasty Onset Date: ~10/18/07 H/O knee surgery Onset Date: ~04/14/08 History of appendectomy History of back surgery Onset Date: ~2003 History of carpal tunnel release of both wrists History of partial hysterectomy Onset Date: ~1979 S/P cubital tunnel release Onset Date: ~06/02/14 Tarsal Tunnel release H/O colonoscopy Family History: Family History (Last Updated 04/26/18 @ 09:06 by Viviane Saeed) Mother TIA (transient ischemic attack) Hypertension Father Lung cancer Brother Alive and well Social History: Patient Lives/Resources Home Utilized Preferred Language Irish Do you have any pentecostal or No cultural preference? Smoking Status Never smoker Have you smoked in the past 12 No months Do you dip or chew tobacco No Abuse History No History of abuse Psych History Hx of Anxiety,Currently on Meds Alcohol Use none Drug Use none Review Of Systems (GEN) - Review of Systems Generalized/Overall Review: Present: Weakness EENTM: Present: No Symptoms Reported Respiratory: Present: Shortness of Breath. Absent: Cough Cardiac: Present: Edema, Palpitations. Absent: Chest Pain, Syncope Abdominal: Present: No Symptoms Reported Genitourinary: Present: No Symptoms Reported Musculoskeletal: Present: No Symptoms Reported Neurological: Present: No Symptoms Reported Skin: Present: No Symptoms Reported Endocrine: Present: No Symptoms Reported Immunizations: IMMUNIZATION HX Immunizations Up to Date Yes History of Influenza Vaccine Yes Hx Pneumococcal Vaccination Yes Allergies/Adverse Reactions: Allergies Allergy/AdvReac Type Severity Reaction Status Date / Time amlodipine [From Norvasc] Allergy Severe Diarrhea Verified 04/19/18 17:04 amlodipine besylate Allergy Severe Anaphylaxis, Verified 04/19/18 17:04 [From Norvasc] TONGUE SWELLING benzocaine Allergy Severe Anaphylaxis Verified 04/19/18 17:04 levofloxacin [From Levaquin] Allergy Severe Anaphylaxis, Verified 04/19/18 17:04 RASH, ITCHING levothyroxine sodium Allergy Severe PATCHY Verified 04/19/18 17:04 SWELLING rosuvastatin [From Crestor] Allergy Unknown Other Verified 04/19/18 17:04 morphine AdvReac Intermediate ARRYTHMIA, Verified 04/19/18 17:04 RASH adhesive AdvReac Mild BLISTERS Verified 04/19/18 17:04 rubber Allergy Mild Hives Uncoded 04/19/18 17:04 Home Medications: HOME MEDICATIONS Aspirin [Aspirin EC] 81 mg PO DAILY 10/11/16 [Last Taken Unknown] Montelukast Sodium [Singulair] 10 mg PO QPM 10/11/16 [Last Taken Unknown] Atorvastatin Calcium 40 mg PO HS 11/02/16 [Last Taken Unknown] Duloxetine HCl [Cymbalta] 60 mg PO DAILY 06/15/17 [Last Taken Unknown] Potassium Chloride [Klor-Con 10] 10 meq PO DAILY #30 tablet.sa 01/20/18 [Last Taken Unknown] ALPRAZolam [Xanax] 0.5 mg PO BID 04/09/18 [Last Taken Unknown] pramipexole 1.5 mg tablet 1.5 mg PO .COMPLEX #90 tab 04/12/18 [Last Taken Unknown] albuterol sulfate 2.5 mg/3 mL (0.083 %) solution for nebulization 1.25 mg IH QID PRN 04/26/18 [Last Taken Unknown] aluminum chloride 20 % topical solution 1 applic TP HS 04/26/18 [Last Taken Unknown] mirtazapine 15 mg tablet 15 mg PO DAILY 04/26/18 [Last Taken Unknown] furosemide 40 mg tablet 40 mg PO DAILY #30 tab 04/27/18 [Last Taken Unknown] metoprolol tartrate 50 mg tablet 50 mg PO BID #60 tab 04/29/18 [Last Taken Unknown] Exam - Exam Vital Signs: Vital Signs - Last Taken Temp 36.7 C 04/20/18 11:16 Pulse 86 04/20/18 11:16 Resp 18 04/20/18 11:16 BP 120/62 04/20/18 11:16 Pulse Ox 94 04/20/18 11:16 Constitutional: Present: Alert, Oriented x3, Cooperative ENT Exam: Present: hearing grossly normal Eye Exam: bilateral eye: normal inspection Respiratory: Present: lungs clear, normal breath sounds, no respiratory distress Cardiovascular/Chest: Present: tachycardia, irregularly irregular Abdomen: Present: Normal bowel sounds, soft Skin Exam: Present: normal color, warm/dry, no cyanosis Lymphatic: Present: no adenopathy Diagnostic Studies: Abnormal Lab Results 04/19/18 04/19/18 04/19/18 Range/Units 13:36 13:36 13:36 WBC 14.9 H (4.0-10.5) K/mm3 MCH 31.2 H (27-31) pg Immature Gran # (Auto) 0.05 H (0.000-0.0310) K/mm3 Neutrophils % 78.3 H (42-75.0) % Lymphocytes % 12.6 L (20-51) % Neutrophils # 11.7 H (1.3-6.0) K/mm3 ESR 41 H (0-15) mm/hr Carbon Dioxide 35.2 H (24-32.6) mmol/L Est GFR (Non-Af Amer) 56 L (60-130) mL/min BUN/Creatinine Ratio 8.8 L (9.0-21.6) Random Glucose 159 H (70-110) mg/dL ALT 16 L (19-67) U/L Laboratory Results WBC 14.9 K/mm3 (4.0-10.5) H 04/19/18 13:36 RBC 4.46 M/mm3 (4.2-5.4) 04/19/18 13:36 Hgb 13.9 gm/dL (12.5-16.0) 04/19/18 13:36 Hct 42.2 % (37.0-47.0) 04/19/18 13:36 MCV 94.6 fl (78-100) 04/19/18 13:36 MCH 31.2 pg (27-31) H 04/19/18 13:36 MCHC 32.9 g/dl (32-36) 04/19/18 13:36 RDW 14.0 % (11.5-14.0) 04/19/18 13:36 Plt Count 294 K/mm3 (150-450) 04/19/18 13:36 MPV 10.0 fl (8-12.5) 04/19/18 13:36 Immature Gran % (Auto) 0.30 % (0.001-0.429) 04/19/18 13:36 Immature Gran # (Auto) 0.05 K/mm3 (0.000-0.0310) H 04/19/18 13:36 Neutrophils % 78.3 % (42-75.0) H 04/19/18 13:36 Lymphocytes % 12.6 % (20-51) L 04/19/18 13:36 Monocytes % 6.2 % (0.0-9) 04/19/18 13:36 Eosinophils % 2.3 % (0.0-3.0) 04/19/18 13:36 Basophils % 0.3 % (0.0-1.0) 04/19/18 13:36 Nucleated RBC % 0.0 k/mm3 (0-1) 04/19/18 13:36 Neutrophils # 11.7 K/mm3 (1.3-6.0) H 04/19/18 13:36 Lymphocytes # 1.88 k/mm3 (1.5-3.5) 04/19/18 13:36 Monocytes # 0.9 k/mm3 (0.0-1.0) 04/19/18 13:36 Eosinophils # 0.4 k/mm3 (0.0-0.7) 04/19/18 13:36 Absolute Basophils 0.1 k/mm3 (0.0-0.1) 04/19/18 13:36 ESR 41 mm/hr (0-15) H 04/19/18 13:36 Sodium 141 mmol/L (132-142) 04/19/18 13:36 Plasma Sodium 142 mmol/L (130-142) 04/19/18 13:36 Potassium 3.6 mmol/L (3.4-4.6) 04/19/18 13:36 Chloride 100 mmol/L (97-106) 04/19/18 13:36 Carbon Dioxide 35.2 mmol/L (24-32.6) H 04/19/18 13:36 Anion Gap 9.4 mmol/L (6.8-13.8) 04/19/18 13:36 BUN 9 mg/dL (3-23) 04/19/18 13:36 Creatinine 1.02 mg/dL (0.4-1.4) 04/19/18 13:36 Est GFR (Non-Af Amer) 56 mL/min (60-130) L 04/19/18 13:36 BUN/Creatinine Ratio 8.8 (9.0-21.6) L 04/19/18 13:36 Random Glucose 159 mg/dL (70-110) H 04/19/18 13:36 Calcium 8.7 mg/dL (7.9-10.9) 04/19/18 13:36 Calcium Adj for Albumin 8.9 mg/dL (8.4-10.2) 04/19/18 13:36 Total Bilirubin 0.7 mg/dL (0.0-1.1) 04/19/18 13:36 AST 16 U/L (0-48) 04/19/18 13:36 ALT 16 U/L (19-67) L 04/19/18 13:36 Alkaline Phosphatase 103 U/L (50-170) 04/19/18 13:36 Troponin I Less than 0.017 ng/ml (0.00-0.10) 04/19/18 19:48 Total Protein 6.8 gm/dL (6.2-8.2) 04/19/18 13:36 Albumin 3.4 gm/dl (3.4-5.0) 04/19/18 13:36 Assessment/Plan - Assessment/Plan (1) Atrial fibrillation with RVR Assessment: Will admit to observation after being given dose of metoprolol to see if heart rate remains controlled. Will adjust dose as needed. Will plan to change dose to metoprolol tartrate for cost. Problem: Acute
--- NOTE | 2018-04-20 12:49 | DS ---
(1) Atrial fibrillation with RVR Problem: Acute (2) Chest pain Problem: Acute Qualifiers: Chest pain type: unspecified Qualified Code(s): R07.9 - Chest pain, unspecified (3) CHF (congestive heart failure) Problem: Acute Qualifiers: Qualified Code(s): I50.31 - Acute diastolic (congestive) heart failure Description of Stay: Letty is a 72 yo female admitted for chest pain. She has chronic history of atrial fibrillation and chronic diastolic CHF. There was no evidence of acute MA on the initial evaluation by the ER. She was admitted into observation and placed on telemetry and had repeat troponins and EKG. During hospital course there was no evidence of MA. She is able to be discharged to home. Due to chronic diastolic CHF will set her up with home health. She reports unable to afford medications, Metoprolol Succinate was changed to tartrate to be cheaper. It was also increased in dose to 100mg BID because she was mildly tachycardic during hospitalization. She will be sent home with a prescription for a wheeled walker with a seat because she has chronic diatolic congestive heart failure, lower extremity weakness, and obesity. She becomes easily winded after walking more than 10 steps and sometimes needs to sit down. Her ADLs and strength would be greatly improved by use of a wheeled walker with a seat because she will be more likely to ambulate with this knowing she can sit if she gets tired mid distance. Procedures Performed: none Results and Findings: Lab Pending Results 04/19/18 04/19/18 04/19/18 13:36 13:36 13:36 WBC 14.9 H RBC 4.46 Hgb 13.9 Hct 42.2 MCV 94.6 MCH 31.2 H MCHC 32.9 RDW 14.0 Plt Count 294 MPV 10.0 Immature Gran % (Auto) 0.30 Immature Gran # (Auto) 0.05 H Neutrophils % 78.3 H Lymphocytes % 12.6 L Monocytes % 6.2 Eosinophils % 2.3 Basophils % 0.3 Nucleated RBC % 0.0 Neutrophils # 11.7 H Lymphocytes # 1.88 Monocytes # 0.9 Eosinophils # 0.4 Absolute Basophils 0.1 ESR 41 H Sodium 141 Plasma Sodium 142 Potassium 3.6 Chloride 100 Carbon Dioxide 35.2 H Anion Gap 9.4 BUN 9 Creatinine 1.02 Est GFR (Non-Af Amer) 56 L BUN/Creatinine Ratio 8.8 L Random Glucose 159 H Calcium 8.7 Calcium Adj for Albumin 8.9 Total Bilirubin 0.7 AST 16 ALT 16 L Alkaline Phosphatase 103 Troponin I Less than 0.017 Total Protein 6.8 Albumin 3.4 04/19/18 19:48 WBC RBC Hgb Hct MCV MCH MCHC RDW Plt Count MPV Immature Gran % (Auto) Immature Gran # (Auto) Neutrophils % Lymphocytes % Monocytes % Eosinophils % Basophils % Nucleated RBC % Neutrophils # Lymphocytes # Monocytes # Eosinophils # Absolute Basophils ESR Sodium Plasma Sodium Potassium Chloride Carbon Dioxide Anion Gap BUN Creatinine Est GFR (Non-Af Amer) BUN/Creatinine Ratio Random Glucose Calcium Calcium Adj for Albumin Total Bilirubin AST ALT Alkaline Phosphatase Troponin I Less than 0.017 Total Protein Albumin Discharge Location: Home Disposition: Home Health Service [facility] Agency: [facility] Condition: Good Discharge Activity: Activity as tolerated Discharge Diet: Low salt Referrals: Tobias Wilde DO [Primary Care Provider] - Two Weeks Problem Oriented Discharge Instructions to Patient/Family: Chest Pain Observation Additional Patient Instructions (free text): -Please make TCM appointment unless halfway discharge. Thank you! Briana @ [phone]. Prescriptions (Any new or edited meds): Metoprolol Tartrate [Lopressor] 100 mg PO Q12H #60 tab Complete Home Medications List: Complete Home Medication List: Aspirin [Aspirin EC] 81 mg PO DAILY 10/11/16 Montelukast Sodium [Singulair] 10 mg PO QPM 10/11/16 Atorvastatin Calcium 40 mg PO HS 11/02/16 Duloxetine HCl [Cymbalta] 60 mg PO DAILY 06/15/17 Pramipexole Di-HCl [Mirapex] 3 mg PO HS 06/15/17 Potassium Chloride [Klor-Con 10] 10 meq PO DAILY #30 tablet.sa 01/20/18 ALPRAZolam [Xanax] 0.5 mg PO BID 04/09/18 pramipexole 1.5 mg tablet 1.5 mg PO .COMPLEX #90 tab 04/12/18 furosemide 40 mg tablet 40 mg PO DAILY #30 tab 04/19/18 Metoprolol Tartrate [Lopressor] 100 mg PO Q12H #60 tab 04/20/18
[2018-04-20 13:25] VITALS: BP 118/76
[2018-04-20] MEDS ORDERED: MONTELUKAST SODIUM 10 MG TABLET PO SCH (17:00)
== END 2018-04-20 13:59 | disposition home health service (06) ==
LOC: ER 12:53 → MS 12:53
PROVIDERS: ADMIT Family Medicine; ATTEND Family Medicine
CPT/HCPCS: 36415; 71020; 71046; 80053; 84484; 85025; 85652; 93005; 99284; G0378

== ENCOUNTER 2018-06-21 02:40 | Observation (INO) | payer BC, MEDICARE ==
--- NOTE | 2018-06-21 02:59 | ERNOTE ---
Chest Pain/Cardiac HPI Date of Service: 06/21/18 Chief Complaint: Chest Pain Time Seen by Provider: 06/21/18 02:47 Source: patient Exam Limitations: no limitations Immunizations: IMMUNIZATION HX Immunizations Up to Date Yes History of Influenza Vaccine Yes Hx Pneumococcal Vaccination Yes Allergies/Adverse Reactions: Allergies amlodipine [From Norvasc] Allergy (Severe, Verified 06/21/18 02:48) Diarrhea amlodipine besylate [From Norvasc] Allergy (Severe, Verified 06/21/18 02:48) Anaphylaxis, TONGUE SWELLING benzocaine Allergy (Severe, Verified 06/21/18 02:48) Anaphylaxis levofloxacin [From Levaquin] Allergy (Severe, Verified 06/21/18 02:48) Anaphylaxis, RASH, ITCHING levothyroxine sodium Allergy (Severe, Verified 06/21/18 02:48) PATCHY SWELLING rosuvastatin [From Crestor] Allergy (Unknown, Verified 06/21/18 02:48) Other morphine Adverse Reaction (Intermediate, Verified 06/21/18 02:48) ARRYTHMIA, RASH arrhythmia adhesive Adverse Reaction (Mild, Verified 06/21/18 02:48) BLISTERS rubber Allergy (Mild, Uncoded 06/21/18 02:48) Hives Home Medications: HOME MEDICATIONS Aspirin [Aspirin EC] 81 mg PO DAILY 10/11/16 [Last Taken Unknown] Atorvastatin Calcium 40 mg PO HS 11/02/16 [Last Taken Unknown] Duloxetine HCl [Cymbalta] 60 mg PO DAILY 06/15/17 [Last Taken Unknown] Potassium Chloride [Klor-Con 10] 10 meq PO DAILY #30 tablet.sa 01/20/18 [Last Taken Unknown] ALPRAZolam [Xanax] 0.5 mg PO BID 04/09/18 [Last Taken Unknown] albuterol sulfate 2.5 mg/3 mL (0.083 %) solution for nebulization 1.25 mg IH QID PRN 04/26/18 [Last Taken 04/04/18] aluminum chloride 20 % topical solution 1 applic TP HS 04/26/18 [Last Taken Unknown] mirtazapine 15 mg tablet 15 mg PO DAILY 04/26/18 [Last Taken Unknown] furosemide 40 mg tablet 40 mg PO DAILY #30 tab 04/27/18 [Last Taken Unknown] metoprolol tartrate 50 mg tablet 50 mg PO BID #60 tab 04/29/18 [Last Taken Unknown] apixaban 5 mg tablet 5 mg PO BID #60 tab 05/05/18 [Last Taken Unknown] pramipexole 1.5 mg tablet See Label Instructions PO .COMPLEX tab 05/05/18 [ Last Taken Unknown] montelukast 10 mg tablet 10 mg PO QPM #90 tab 05/24/18 [Last Taken Unknown] Pain Score #1 Pain Score: 2 Narrative: 72 yr old female around 3 hrs ago awoke with retrosternal cp, treated by medics with aspirin and nitro brought pain down from 7 to 2.patient in Atrial fib. Timing: constant Severity/Quality: moderate Chest Pain Radiation: no radiation Modifying Factors - Improves: Present: nitroglycerin, oxygen Nitro Today/Relief: 0.4 mg x 1, 0.4 mg x 2, provided by EMS, provided by ED Aspirin Treatment Today: 81 mg x 4 Associated Symptoms: Present: denies symptoms Review of Systems - Review of Systems Constitutional: Present: no symptoms reported EYE: Present: no symptoms reported ENT: Present: no symptoms reported Respiratory: Present: no symptoms reported Cardiology: Present: chest pain Gastrointestinal/Abdominal: Present: no symptoms reported Genitourinary: Present: no symptoms reported Musculoskeletal: Present: no symptoms reported Skin: Present: no symptoms reported Neurological: Present: no symptoms reported Endocrine: Present: no symptoms reported Hematologic/Lymphatic: Present: no symptoms reported Psych: Present: no symptoms reported Medical History (Last Reviewed 06/21/18 @ 02:49 by Lakesha Lopez) Alzheimers disease Anxiety Atrial fibrillation Onset Date: ~10/2007 CHF (congestive heart failure) Onset Date: ~11/11/16 CVA (cerebral vascular accident) Hyperlipidemia Hypertension Torn rotator cuff Asthma Depression Hypercholesterolemia Hyperhidrosis Morbid obesity Obstructive sleep apnea Osteoarthrosis Onset Date: ~09/07/07 Restless legs Spinal stenosis Weakness of both lower extremities Onset Date: ~01/20/17 Hemiparesis Ischemic stroke Onset Date: ~10/11/16 Knee pain Onset Date: ~09/07/07 Lower extremity edema Onset Date: ~10/04/13 Wrist pain, right Surgical History: Surgical History (Last Reviewed 05/05/18 @ 13:29 by Erin Molina) Hx of bilateral hip replacements Hx of total knee replacement Onset Date: ~2004 Bone spur H/O arthroplasty Onset Date: ~10/18/07 H/O knee surgery Onset Date: ~04/14/08 History of appendectomy History of back surgery Onset Date: ~2003 History of carpal tunnel release of both wrists History of partial hysterectomy Onset Date: ~1979 S/P cubital tunnel release Onset Date: ~06/02/14 Tarsal Tunnel release H/O colonoscopy Family History: Family History (Last Reviewed 05/05/18 @ 13:29 by Erin Molina) Mother TIA (transient ischemic attack) Hypertension Father Lung cancer Brother Alive and well Social History: Preferred Language Omani Smoking Status Never smoker Abuse History No History of abuse Psych History Hx of Anxiety,Currently on Meds Alcohol Use none Drug Use none Physical Exam - Physical Exam General Appearance: Present: wd/wn, alert, no apparent distress, moderate distress Head Exam: Present: normal inspection, no evidence of injury Eye Exam: Normal inspection: bilateral Ears, Nose, Throat: Present: normal ENT inspection. Absent: nasal congestion, sinus pain/drainage, normal pharynx, pharyngeal erythema, pharyngeal swelling, tonsillar exudate, tonsillar swelling, dry mucous membranes Neck: Present: normal inspection, full range of motion Respiratory: Present: no respiratory distress, normal breath sounds Cardiovascular/Chest: Present: irregularly irregular Gastrointestinal/Abdominal: Present: normal bowel sounds Pelvic Exam: Present: other Back Exam: Present: normal inspection, normal range of motion, CVA tenderness (R ), CVA tenderness (L), vertebral tenderness Extremity Exam: Present: normal inspection, decreased range of motion, pedal edema Neurological Exam: Present: alert, oriented, certified pediatric nurse practitioner II-XII nml as tested DTR: N=norm/NB=norm/brisk/A=abs/DD=dull/dimin/HC=hyperactive: Bicep (R): Normal , Normal/Brisk, Absent, Dull/Diminished, Hyperactive w/Clonus Skin Exam: Present: normal color, warm/dry, cool/dry, jaundice, pallor ED Progress - Results and Orders Patient's Lab Results:: I have reviewed the patient's lab results. - Vital Signs Patient's Vital Signs:: I have reviewed the patient's vital signs. Vital Signs: Vital Signs 06/21/18 02:42 Temperature 36.8 C Pulse Rate 96 Respiratory Rate 26 H Blood Pressure 141/64 O2 Sat by Pulse Oximetry 4 L - EKG EKG: atrial fibrillation EKG Comments: hr 108,no acute changes - X-Ray X-Ray #1 X-Ray: chest Interpretation: Interp. by me X-ray Comments: nad - Progress/Reassessment Chief Complaint: Chest Pain Plan - Plan Plan: patient troponin wnlto be admitted to DR Parra to observation Departure Clinical Impression: Chest pain, Atrial fibrillation with RVR - Departure Disposition: Short Term Hospital Inpatient Condition: Good Referrals: Tobias Wilde DO [Primary Care Provider] -
[2018-06-21] MEDS: NITROGLYCERIN 0.4 MG/TAB BTL SL PRN ×2 (03:00→03:18)
[2018-06-21 03:01] LABS: Hematocrit 40.3 % (37.0-47.0); Hemoglobin 12.7 gm/dL (12.5-16.0); Mean Cell Volume 97.8 fl (78-100); Mean Corpuscular Hemoglobin 30.8 pg (27-31); Mean Corpuscular Hgb Conc 31.5 g/dl (32-36); Mean Platelet Volume 9.5 fl (8-12.5); Neutrophil # 8.8 K/mm3 (1.3-6.0); Neutrophil % 70.7 % (42-75.0); Platelet Count 270 K/mm3 (150-450); Red Blood Count 4.12 M/mm3 (4.2-5.4); Red Cell Distribution Width 14.4 % (11.5-14.0); White Blood Count 12.4 K/mm3 (4.0-10.5)
[2018-06-21 03:18] LABS: ALT 14 U/L (19-67); AST 13 U/L (0-48); Albumin * 3.3 gm/dl (3.4-5.0); Alkaline Phosphatase * 100 U/L (50-170); BUN/Creatinine Ratio 9.1 (9.0-21.6); Bilirubin, Total 0.6 mg/dL (0.0-1.1); Blood Urea Nitrogen 8 mg/dL (3-23); Ca. Corrected For Albumin 8.8 mg/dL (8.4-10.2); Calcium * 8.6 mg/dL (7.9-10.9); Carbon Dioxide 30.2 mmol/L (24-32.6); Chloride 101 mmol/L (97-106); Glucose * 133 mg/dL (70-110); Potassium 4.2 mmol/L (3.4-4.6); Sodium 139 mmol/L (132-142); Total Protein 7.3 gm/dL (6.2-8.2); Troponin I Less than 0.017 ng/mL (0.00-0.10)
[2018-06-21] MEDS ORDERED: FUROSEMIDE 10 MG/ML VIAL IV ONE (04:13)
[2018-06-21] MEDS ORDERED: FUROSEMIDE 10 MG/ML VIAL ONE (04:14)
--- NOTE | 2018-06-21 16:33 | HP ---
Chief Complaint - Chief Complaint Date of Service: 06/21/18 Time of Service: 13:15 Chief Complaint: Chest Pain History of Present Illness: Letty is a 72 yo female with atrial fibrillation, GERD, and anxiety that presents to the [facility] ER with chest pain that occurred at night. She reports pain was substernal and describes this as tight. She denies significant shortness of breath, fever, chills, cough, or radiation. She does report anxiety is high currently. She denies eating anything out of the ordinary. Chest pain resolved spontaneously in the ER. She denies any current chest discomfort. Medical History (Last Reviewed 06/28/18 @ 09:43 by Erin Molina) Alzheimers disease Anxiety Atrial fibrillation Onset Date: ~10/2007 CHF (congestive heart failure) Onset Date: ~11/11/16 CVA (cerebral vascular accident) Hyperlipidemia Hypertension Torn rotator cuff Asthma Depression Hypercholesterolemia Hyperhidrosis Morbid obesity Obstructive sleep apnea Osteoarthrosis Onset Date: ~09/07/07 Restless legs Spinal stenosis Weakness of both lower extremities Onset Date: ~01/20/17 Hemiparesis Ischemic stroke Onset Date: ~10/11/16 Knee pain Onset Date: ~09/07/07 Lower extremity edema Onset Date: ~10/04/13 Wrist pain, right Surgical History: Surgical History (Last Reviewed 06/28/18 @ 09:43 by Erin Molina) Hx of bilateral hip replacements Hx of total knee replacement Onset Date: ~2004 Bone spur H/O arthroplasty Onset Date: ~10/18/07 H/O knee surgery Onset Date: ~04/14/08 History of appendectomy History of back surgery Onset Date: ~2003 History of carpal tunnel release of both wrists History of partial hysterectomy Onset Date: ~1979 S/P cubital tunnel release Onset Date: ~06/02/14 Tarsal Tunnel release H/O colonoscopy Family History: Family History (Last Reviewed 06/28/18 @ 09:43 by Erin Molina) Mother TIA (transient ischemic attack) Hypertension Father Lung cancer Brother Alive and well Social History: Patient Lives/Resources Home Utilized Preferred Language Moroccan Do you have any sikh or No cultural preference? Smoking Status Never smoker Have you smoked in the past 12 No months Do you dip or chew tobacco No Abuse History No History of abuse Psych History Hx of Anxiety,Currently on Meds Alcohol Use none Drug Use none Review Of Systems (GEN) - Review of Systems Generalized/Overall Review: Absent: Weakness, Chills EENTM: Present: No Symptoms Reported Respiratory: Absent: Cough, Shortness of Breath Cardiac: Present: Chest Pain. Absent: Palpitations Abdominal: Absent: Nausea, Vomiting Genitourinary: Present: No Symptoms Reported Musculoskeletal: Present: Back Pain Neurological: Present: Anxiety, Depressed, Emotional Problems. Absent: Headache Skin: Present: No Symptoms Reported Endocrine: Present: No Symptoms Reported Immunizations: IMMUNIZATION HX Immunizations Up to Date Yes History of Influenza Vaccine Yes Hx Pneumococcal Vaccination Yes Allergies/Adverse Reactions: Allergies Allergy/AdvReac Type Severity Reaction Status Date / Time amlodipine [From Norvasc] Allergy Severe Diarrhea Verified 06/28/18 09:42 amlodipine besylate Allergy Severe Anaphylaxis, Verified 06/28/18 09:42 [From Norvasc] TONGUE SWELLING benzocaine Allergy Severe Anaphylaxis Verified 06/28/18 09:42 levofloxacin [From Levaquin] Allergy Severe Anaphylaxis, Verified 06/28/18 09:42 RASH, ITCHING levothyroxine sodium Allergy Severe PATCHY Verified 06/28/18 09:42 SWELLING rosuvastatin [From Crestor] Allergy Unknown Other Verified 06/28/18 09:42 morphine AdvReac Intermediate ARRYTHMIA, Verified 06/28/18 09:42 RASH adhesive AdvReac Mild BLISTERS Verified 06/28/18 09:42 rubber Allergy Mild Hives Uncoded 06/21/18 02:48 Home Medications: HOME MEDICATIONS Aspirin [Aspirin EC] 81 mg PO DAILY 10/11/16 [Last Taken Unknown] Atorvastatin Calcium 40 mg PO HS 11/02/16 [Last Taken Unknown] Potassium Chloride [Klor-Con 10] 10 meq PO DAILY #30 tablet.sa 01/20/18 [Last Taken Unknown] albuterol sulfate 2.5 mg/3 mL (0.083 %) solution for nebulization 1.25 mg IH QID PRN 04/26/18 [Last Taken 04/04/18] aluminum chloride 20 % topical solution 1 applic TP HS 04/26/18 [Last Taken Unknown] mirtazapine 15 mg tablet 15 mg PO DAILY 04/26/18 [Last Taken Unknown] furosemide 40 mg tablet 40 mg PO DAILY #30 tab 04/27/18 [Last Taken Unknown] metoprolol tartrate 50 mg tablet 50 mg PO BID #60 tab 04/29/18 [Last Taken Unknown] apixaban 5 mg tablet 5 mg PO BID #60 tab 05/05/18 [Last Taken Unknown] pramipexole 1.5 mg tablet See Rx Instructions PO .COMPLEX tab 05/05/18 [Last Taken Unknown] montelukast 10 mg tablet 10 mg PO QPM #90 tab 05/24/18 [Last Taken Unknown] Ranitidine HCl 300 mg PO HS #30 cap 06/21/18 [Last Taken Unknown] alprazolam 0.5 mg tablet 0.5 mg PO BID #60 tab 06/21/18 [Last Taken Unknown] fluoxetine 40 mg capsule 40 mg PO DAILY #30 cap 06/21/18 [Last Taken Unknown] Exam - Exam Vital Signs: Vital Signs - Last Taken Temp 36.7 C 06/21/18 14:10 Pulse 77 06/21/18 14:10 Resp 16 06/21/18 14:10 BP 130/79 06/21/18 14:10 Pulse Ox 96 06/21/18 14:10 Constitutional: Present: Alert, Oriented x3, Cooperative, Obese ENT Exam: Present: hearing grossly normal Eye Exam: bilateral eye: normal inspection Respiratory: Present: lungs clear, normal breath sounds Cardiovascular/Chest: Present: no murmur, irregularly irregular Abdomen: Present: Normal bowel sounds, soft, nontender, nondistended, no rebound tenderness Skin Exam: Present: normal color, warm/dry, no cyanosis Lymphatic: Present: no adenopathy Diagnostic Studies: Abnormal Lab Results 06/21/18 06/21/18 06/21/18 Range/Units 02:50 02:50 03:26 WBC 12.4 H (4.0-10.5) K/mm3 RBC 4.12 L (4.2-5.4) M/mm3 MCHC 31.5 L (32-36) g/dl RDW 14.4 H (11.5-14.0) % Immature Gran # (Auto) 0.04 H (0.000-0.0310) K/mm3 Lymphocytes % 18.6 L (20-51) % Neutrophils # 8.8 H (1.3-6.0) K/mm3 Random Glucose 133 H (70-110) mg/dL ALT 14 L (19-67) U/L B-Natriuretic Peptide 1139 H (5-325) pg/mL Albumin 3.3 L (3.4-5.0) gm/dl Laboratory Results WBC 12.4 K/mm3 (4.0-10.5) H 06/21/18 02:50 RBC 4.12 M/mm3 (4.2-5.4) L 06/21/18 02:50 Hgb 12.7 gm/dL (12.5-16.0) 06/21/18 02:50 Hct 40.3 % (37.0-47.0) 06/21/18 02:50 MCV 97.8 fl (78-100) 06/21/18 02:50 MCH 30.8 pg (27-31) 06/21/18 02:50 MCHC 31.5 g/dl (32-36) L 06/21/18 02:50 RDW 14.4 % (11.5-14.0) H 06/21/18 02:50 Plt Count 270 K/mm3 (150-450) 06/21/18 02:50 MPV 9.5 fl (8-12.5) 06/21/18 02:50 Immature Gran % (Auto) 0.30 % (0.001-0.429) 06/21/18 02:50 Immature Gran # (Auto) 0.04 K/mm3 (0.000-0.0310) H 06/21/18 02:50 Neutrophils % 70.7 % (42-75.0) 06/21/18 02:50 Lymphocytes % 18.6 % (20-51) L 06/21/18 02:50 Monocytes % 7.1 % (0.0-9) 06/21/18 02:50 Eosinophils % 2.9 % (0.0-3.0) 06/21/18 02:50 Basophils % 0.4 % (0.0-1.0) 06/21/18 02:50 Nucleated RBC % 0.0 k/mm3 (0-1) 06/21/18 02:50 Neutrophils # 8.8 K/mm3 (1.3-6.0) H 06/21/18 02:50 Lymphocytes # 2.31 k/mm3 (1.5-3.5) 06/21/18 02:50 Monocytes # 0.9 k/mm3 (0.0-1.0) 06/21/18 02:50 Eosinophils # 0.4 k/mm3 (0.0-0.7) 06/21/18 02:50 Absolute Basophils 0.1 k/mm3 (0.0-0.1) 06/21/18 02:50 Sodium 139 mmol/L (132-142) 06/21/18 02:50 Plasma Sodium 140 mmol/L (130-142) 06/21/18 02:50 Potassium 4.2 mmol/L (3.4-4.6) 06/21/18 02:50 Chloride 101 mmol/L (97-106) 06/21/18 02:50 Carbon Dioxide 30.2 mmol/L (24-32.6) 06/21/18 02:50 Anion Gap 12.0 mmol/L (6.8-13.8) 06/21/18 02:50 BUN 8 mg/dL (3-23) 06/21/18 02:50 Creatinine 0.88 mg/dL (0.4-1.4) 06/21/18 02:50 Est GFR (Non-Af Amer) 67 mL/min (60-130) 06/21/18 02:50 BUN/Creatinine Ratio 9.1 (9.0-21.6) 06/21/18 02:50 Random Glucose 133 mg/dL (70-110) H 06/21/18 02:50 Calcium 8.6 mg/dL (7.9-10.9) 06/21/18 02:50 Calcium Adj for Albumin 8.8 mg/dL (8.4-10.2) 06/21/18 02:50 Total Bilirubin 0.6 mg/dL (0.0-1.1) 06/21/18 02:50 AST 13 U/L (0-48) 06/21/18 02:50 ALT 14 U/L (19-67) L 06/21/18 02:50 Alkaline Phosphatase 100 U/L (50-170) 06/21/18 02:50 Troponin I Less than 0.017 ng/mL (0.00-0.10) 06/21/18 11:50 B-Natriuretic Peptide 1139 pg/mL (5-325) H 06/21/18 03:26 Total Protein 7.3 gm/dL (6.2-8.2) 06/21/18 02:50 Albumin 3.3 gm/dl (3.4-5.0) L 06/21/18 02:50 Assessment/Plan - Narrative Narrative: Letty is a 72 yo female with: 1) Chest Pain - Unclear etiology, initial work up was negative for acute AZ with no acute changes of EKG or troponin. She has chronic atrial fibrillation. Patient reports a lot of anxiety and this could be the source of her chest pain. As the chest pain occurred at night it could also be GI related. She will be admitted to observation and placed on telemetry. Will obtain serial troponin. Anticipate discharge later today once ruled out for AZ. - Assessment/Plan (1) Chest pain Problem: Acute (2) Atrial fibrillation Problem: Chronic Qualifiers: Atrial fibrillation type: chronic Qualified Code(s): I48.2 - Chronic atrial fibrillation
--- NOTE | 2018-06-21 16:52 | DS ---
(1) Chest pain Problem: Acute (2) Atrial fibrillation Problem: Acute Qualifiers: Atrial fibrillation type: chronic Qualified Code(s): I48.2 - Chronic atrial fibrillation Description of Stay: Letty is a 72 yo female that had chest pain overnight. She denies doing anything out of ordinary. Chest pain was sternal and moved straight through to her back. She denies arm or throat radiation. She presented to the [facility] ER and chest pain subsided on its own. She denies coughing, shortness of breath, fever, or chills. She has chronic atrial fibrillation, COPD, and chronic diastolic CHF. Her chest pain has not returned since being admitted for observation. Telemetry has shown her chronic atrial fibrillation and her troponins have been negative x 2. She is feeling well and able for home discharge. Unclear as to the cause of her chest pain. It does not appear cardiac. Suspect that chest pain may have been reflux related. Will add ranitidine at bedtime. Will follow up in 1-2 weeks. Procedures Performed: none Results and Findings: Lab Pending Results 06/21/18 02:50: WBC 12.4 H, RBC 4.12 L, Hgb 12.7, Hct 40.3, MCV 97.8, MCH 30.8, MCHC 31.5 L, RDW 14.4 H, Plt Count 270, MPV 9.5, Immature Gran % (Auto) 0.30, Immature Gran # (Auto) 0.04 H, Neutrophils % 70.7, Lymphocytes % 18.6 L, Monocytes % 7.1, Eosinophils % 2.9, Basophils % 0.4, Nucleated RBC % 0.0, Neutrophils # 8.8 H, Lymphocytes # 2.31, Monocytes # 0.9, Eosinophils # 0.4, Absolute Basophils 0.1 06/21/18 02:50: Sodium 139, Plasma Sodium 140, Potassium 4.2, Chloride 101, Carbon Dioxide 30.2, Anion Gap 12.0, BUN 8, Creatinine 0.88, Est GFR (Non-Af Amer) 67, BUN/Creatinine Ratio 9.1, Random Glucose 133 H, Calcium 8.6, Calcium Adj for Albumin 8.8, Total Bilirubin 0.6, AST 13, ALT 14 L, Alkaline Phosphatase 100, Troponin I Less than 0.017, Total Protein 7.3, Albumin 3.3 L 06/21/18 03:26: B-Natriuretic Peptide 1139 H 06/21/18 11:50: Troponin I Less than 0.017 Discharge Location: Home Disposition: Home self-care Condition: Good Discharge Activity: Activity as tolerated Discharge Diet: Low salt Referrals: Tobias Wilde DO [Primary Care Provider] - One Week Problem Oriented Discharge Instructions to Patient/Family: Nonspecific Chest Pain, [id number], CHF Patient Instructions Additional Patient Instructions (free text): -Please make TCM appointment unless snf discharge. Thank you! Briana @ ext:[phone]. Prescriptions (Any new or edited meds): Ranitidine HCl 300 mg PO HS #30 cap Complete Home Medications List: Complete Home Medication List: Aspirin [Aspirin EC] 81 mg PO DAILY 10/11/16 Atorvastatin Calcium 40 mg PO HS 11/02/16 Duloxetine HCl [Cymbalta] 60 mg PO DAILY 06/15/17 Potassium Chloride [Klor-Con 10] 10 meq PO DAILY #30 tablet.sa 01/20/18 ALPRAZolam [Xanax] 0.5 mg PO BID 04/09/18 albuterol sulfate 2.5 mg/3 mL (0.083 %) solution for nebulization 1.25 mg IH QID PRN 04/26/18 aluminum chloride 20 % topical solution 1 applic TP HS 04/26/18 mirtazapine 15 mg tablet 15 mg PO DAILY 04/26/18 furosemide 40 mg tablet 40 mg PO DAILY #30 tab 04/27/18 metoprolol tartrate 50 mg tablet 50 mg PO BID #60 tab 04/29/18 apixaban 5 mg tablet 5 mg PO BID #60 tab 05/05/18 pramipexole 1.5 mg tablet See Label Instructions PO .COMPLEX tab 05/05/18 montelukast 10 mg tablet 10 mg PO QPM #90 tab 05/24/18 Ranitidine HCl 300 mg PO HS #30 cap 06/21/18
[2018-06-21 18:31] VITALS: BP 132/89
== END 2018-06-21 17:20 | disposition home or self-care (01) ==
LOC: MS 02:40 → ER 02:40 → MS 04:30
PROVIDERS: ADMIT Internal Medicine; ATTEND Family Medicine
CPT/HCPCS: 36415; 71010; 71045; 80053; 83519; 83880; 84484; 85025; 93005; 96374; 99283; G0378

== ENCOUNTER 2018-08-20 14:18 | Observation (INO) | payer BC, MEDICARE ==
[2018-08-20] MEDS ORDERED: ALBUTEROL SULFATE 2.5 MG/0.5 ML VIAL.NEB IH ONE (14:28)
[2018-08-20] MEDS ORDERED: FUROSEMIDE 10 MG/ML VIAL IV ONE (14:33)
[2018-08-20 15:03] LABS: Hematocrit 40.6 % (37.0-47.0); Hemoglobin 12.9 gm/dL (12.5-16.0); Mean Cell Volume 95.5 fl (78-100); Mean Corpuscular Hemoglobin 30.4 pg (27-31); Mean Corpuscular Hgb Conc 31.8 g/dl (32-36); Mean Platelet Volume 9.2 fl (8-12.5); Neutrophil # 8.6 K/mm3 (1.3-6.0); Neutrophil % 79.2 % (42-75.0); Platelet Count 231 K/mm3 (150-450); Red Blood Count 4.25 M/mm3 (4.2-5.4); Red Cell Distribution Width 14.6 % (11.5-14.0); White Blood Count 10.8 K/mm3 (4.0-10.5)
[2018-08-20 15:29] LABS: ALT 20 U/L (19-67); AST 14 U/L (0-48); Albumin * 3.5 gm/dl (3.4-5.0); Alkaline Phosphatase * 102 U/L (50-170); Anion Gap 6.8 mmol/L (6.8-13.8); BNP * 677 pg/mL (5-325); BUN/Creatinine Ratio 11.5 (9.0-21.6); Bilirubin, Total 1.3 mg/dL (0.0-1.1); Blood Urea Nitrogen 11 mg/dL (3-23); Calcium * 8.9 mg/dL (7.9-10.9); Carbon Dioxide 36.9 mmol/L (24-32.6); Chloride 101 mmol/L (97-106); Glucose * 120 mg/dL (70-110); Potassium 3.7 mmol/L (3.4-4.6); Sodium 141 mmol/L (132-142); Total Protein 7.6 gm/dL (6.2-8.2); Troponin I Less than 0.017 ng/mL (0.00-0.10)
--- NOTE | 2018-08-20 16:54 | ERNOTE ---
Dyspnea - Date Date of Service: 08/20/18 - General Presenting Symptoms: shortness of breath, difficulty of breathing, wheezing Time Seen by Provider: 08/20/18 14:25 Source: patient Exam Limitations: no limitations - Immun/Allergies/Home Medications Immunizations: IMMUNIZATION HX Immunizations Up to Date Yes History of Influenza Vaccine Yes Hx Pneumococcal Vaccination Yes Allergies/Adverse Reactions: Allergies amlodipine [From Norvasc] Allergy (Severe, Verified 08/05/18 13:34) Diarrhea amlodipine besylate [From Norvasc] Allergy (Severe, Verified 08/05/18 13:34) Anaphylaxis, TONGUE SWELLING benzocaine Allergy (Severe, Verified 08/05/18 13:34) Anaphylaxis levofloxacin [From Levaquin] Allergy (Severe, Verified 08/05/18 13:34) Anaphylaxis, RASH, ITCHING levothyroxine sodium Allergy (Severe, Verified 08/05/18 13:34) PATCHY SWELLING rosuvastatin [From Crestor] Allergy (Unknown, Verified 08/05/18 13:34) Other morphine Adverse Reaction (Intermediate, Verified 08/05/18 13:34) ARRYTHMIA, RASH arrhythmia adhesive Adverse Reaction (Mild, Verified 08/05/18 13:34) BLISTERS rubber Allergy (Mild, Uncoded 06/21/18 02:48) Hives Home Medications: HOME MEDICATIONS Atorvastatin Calcium 40 mg PO HS 11/02/16 [Last Taken Unknown] Potassium Chloride [Klor-Con 10] 10 meq PO DAILY #30 tablet.sa 01/20/18 [Last Taken Unknown] albuterol sulfate 2.5 mg/3 mL (0.083 %) solution for nebulization 1.25 mg IH QID PRN 04/26/18 [Last Taken 04/04/18] aluminum chloride 20 % topical solution 1 applic TP HS 04/26/18 [Last Taken Unknown] mirtazapine 15 mg tablet 15 mg PO DAILY 04/26/18 [Last Taken Unknown] furosemide 40 mg tablet 40 mg PO DAILY #30 tab 04/27/18 [Last Taken Unknown] pramipexole 1.5 mg tablet See Rx Instructions PO .COMPLEX tab 05/05/18 [Last Taken Unknown] montelukast 10 mg tablet 10 mg PO QPM #90 tab 05/24/18 [Last Taken Unknown] Ranitidine HCl 300 mg PO HS #30 cap 06/21/18 [Last Taken Unknown] alprazolam 0.5 mg tablet 0.5 mg PO BID #60 tab 06/21/18 [Last Taken Unknown] fluoxetine 60 mg tablet 60 mg PO DAILY #30 tab 08/05/18 [Last Taken Unknown] metoprolol tartrate 50 mg tablet 75 mg PO BID #90 tab 08/05/18 [Last Taken Unknown] - History of Present Illness Narrative: patient presents to ed with sob for one week , has o2 at night but has used 4l continuous for last several days Severity: moderate Treatment HAM PUMPER: by patient, oxygen, albuterol Initiating event: Reports: upper resp illness Frequency of episodes: Reports: frequent episodes Modifying Factors - (Improves): Reports: albuterol, rest Modifying Factors (Worsens): Reports: activity Associated Symptoms-Dyspnea: Reports: fever/chills, cough, wheezing, lightheadedness, weakness Review of Systems - Review of Systems Constitutional: Present: See HPI, weakness, fatigue, malaise EYE: Present: no symptoms reported ENT: Present: no symptoms reported Respiratory: Present: See HPI, shortness of breath, cough, wheezing Cardiology: Present: no symptoms reported Gastrointestinal/Abdominal: Present: no symptoms reported Genitourinary: Present: no symptoms reported Musculoskeletal: Present: no symptoms reported Skin: Present: no symptoms reported Neurological: Present: no symptoms reported Endocrine: Present: no symptoms reported Hematologic/Lymphatic: Present: no symptoms reported Psych: Present: no symptoms reported All Other Systems: All systems neg except as marked Medical History (Last Reviewed 08/05/18 @ 13:39 by Erin Molina) Alzheimers disease Anxiety Atrial fibrillation Onset Date: ~10/2007 post operative afib with a rapid ventricular response and low voltage. CHF (congestive heart failure) Onset Date: ~11/11/16 CVA (cerebral vascular accident) Hyperlipidemia Hypertension Torn rotator cuff Asthma Depression Hypercholesterolemia Hyperhidrosis Morbid obesity Obstructive sleep apnea Osteoarthrosis Onset Date: ~09/07/07 Restless legs Spinal stenosis Weakness of both lower extremities Onset Date: ~01/20/17 Hemiparesis left Ischemic stroke Onset Date: ~10/11/16 suspected etiology is cardioembolic given newly diagnosed afib, however cannot rule out MMCA stenosis without vessel imaging. Knee pain Onset Date: ~09/07/07 Lower extremity edema Onset Date: ~12/31/13 Wrist pain, right Surgical History: Surgical History (Last Reviewed 08/05/18 @ 13:39 by Erin Molina) Hx of bilateral hip replacements Hx of total knee replacement Onset Date: ~2004 right knee Bone spur bilateral 03/2013 Dr. Lee H/O arthroplasty Onset Date: ~10/18/07 Left partial H/O knee surgery Onset Date: ~04/14/08 left partial knee History of appendectomy History of back surgery Onset Date: ~2003 1986 and 2003 History of carpal tunnel release of both wrists History of partial hysterectomy Onset Date: ~1979 S/P cubital tunnel release Onset Date: ~06/02/14 Dr. Benavides, right Tarsal Tunnel release right H/O colonoscopy at [facility] Family History: Family History (Last Reviewed 08/05/18 @ 13:39 by Erin Molina) Mother TIA (transient ischemic attack) Hypertension Father Lung cancer Brother Alive and well Social History: Preferred Language Amharic Do you have any worship or No cultural preference? Smoking Status Never smoker Abuse History No History of abuse Psych History Hx of Anxiety,Currently on Meds Alcohol Use sober Drug Use none (Last Updated 08/19/18 @ 22:57 by Tobias Wilde DO) No Social History Section defined Physical Exam - Physical Exam General Appearance: Present: moderate distress, anxious Head Exam: Present: normal inspection, no evidence of injury Eye Exam: Normal inspection: bilateral, PERRL: bilateral, EOMI: bilateral Ears, Nose, Throat: Present: normal ENT inspection, normal pharynx Neck: Present: normal inspection, nontender Respiratory: Present: lungs clear, chest tenderness, rales, rhonchi, wheezing Cardiovascular/Chest: Present: regular rate, rhythm, no murmur, normal peripheral pulses Gastrointestinal/Abdominal: Present: normal bowel sounds, nontender, nondistended, soft, no organomegaly Back Exam: Present: normal inspection, normal range of motion, no CVA tenderness, no vertebral tenderness Extremity Exam: Present: normal inspection, non-tender, normal range of motion, no edema Neurological Exam: Present: alert, oriented, normal mood/affect, no motor/sensory deficits Skin Exam: Present: normal color, warm/dry Lymphatic Exam: Present: no adenopathy ED Progress - Date and Time Seen: Date and Time: 08/20/18 16:51 patient improved, caase discussed with dr sirucek, to admit to observation - Results and Orders Patient's Lab Results:: I have reviewed the patient's lab results. - Vital Signs Patient's Vital Signs:: I have reviewed the patient's vital signs. Vital Signs: Vital Signs 08/20/18 14:18 08/20/18 14:44 Temperature 37.4 C Pulse Rate 86 88 Respiratory Rate 16 Blood Pressure 146/89 152/84 H O2 Sat by Pulse Oximetry 97 96 - EKG EKG: NSR - X-Ray X-Ray #1 X-Ray: chest Interpretation: Discd w/ radiologist - atelectasis vs rml pneumonia - Progress/Reassessment Chief Complaint: Dyspnea Progress:: Improved - Transfer of Care Expected Disposition: Admit Plan - Plan Plan: to admit to observation Departure Clinical Impression: Pneumonia, Dyspnea - Departure Disposition: Still a patient Condition: Fair Referrals: Tobias Wilde DO [Primary Care Provider] -
[2018-08-20] MEDS ORDERED: ALBUTEROL SULFATE 2.5 MG/0.5 ML VIAL.NEB IH PRN ×2 (16:56→19:15)
[2018-08-20] MEDS ORDERED: METHYLPREDNISOLONE SOD SUCC/PF 40 MG/ML VIAL IV SCH (17:00)
[2018-08-20] MEDS ORDERED: DEXTROSE 5 % IN WATER 100 ML BAG IV ONE (17:06)
--- NOTE | 2018-08-20 18:00 | HP ---
Chief Complaint - Chief Complaint Date of Service: 08/20/18 Time of Service: 18:00 History of Present Illness: Pt presented to the ER with SOB and cough for 1 week. She has been unable to check her temp at home, though she has felt warm. She uses o2 while sleeping but has required to use it round the clock since SOB started. She is a very poor historian. In the ER, a cxr showed possible middle lobe PNA vs atelectaiss. She does have mildly elevated WBC, with left shift. She was started on rocephin and placed under observation. Blood cultures pending. She currently is sating 94% currenbtly on 1.5 liters. She has no concerns at this time. Medical History (Last Reviewed 08/20/18 @ 17:17 by Giovanni Tobias RN) Alzheimers disease Anxiety Atrial fibrillation Onset Date: ~10/2007 post operative afib with a rapid ventricular response and low voltage. CHF (congestive heart failure) Onset Date: ~11/11/16 CVA (cerebral vascular accident) Hyperlipidemia Hypertension Torn rotator cuff Asthma Depression Hypercholesterolemia Hyperhidrosis Morbid obesity Obstructive sleep apnea Osteoarthrosis Onset Date: ~09/07/07 Restless legs Spinal stenosis Weakness of both lower extremities Onset Date: ~01/20/17 Hemiparesis left Ischemic stroke Onset Date: ~10/11/16 suspected etiology is cardioembolic given newly diagnosed afib, however cannot rule out MMCA stenosis without vessel imaging. Knee pain Onset Date: ~09/07/07 Lower extremity edema Onset Date: ~10/04/13 Wrist pain, right Surgical History: Surgical History (Last Reviewed 08/20/18 @ 17:17 by Giovanni Tobias RN) Hx of bilateral hip replacements Hx of total knee replacement Onset Date: ~2004 right knee Bone spur bilateral 03/2013 Dr. Lee H/O arthroplasty Onset Date: ~10/18/07 Left partial H/O knee surgery Onset Date: ~04/14/08 left partial knee History of appendectomy History of back surgery Onset Date: ~2003 1986 and 2003 History of carpal tunnel release of both wrists History of partial hysterectomy Onset Date: ~1979 S/P cubital tunnel release Onset Date: ~06/02/14 Dr. Benavides, right Tarsal Tunnel release right H/O colonoscopy at [facility] Family History: Family History (Last Reviewed 08/20/18 @ 17:17 by Giovanni Tobias RN) Mother TIA (transient ischemic attack) Hypertension Father Lung cancer Brother Alive and well Social History: Preferred Language Italian Do you have any scientology or No cultural preference? Smoking Status Never smoker Abuse History No History of abuse Psych History Hx of Anxiety,Currently on Meds Alcohol Use sober Drug Use none (Last Updated 08/19/18 @ 22:57 by Tobias Wilde DO) No Social History Section defined Review Of Systems (GEN) - Review of Systems Generalized/Overall Review: Present: Chills, Fever - subjective EENTM: Absent: Ear Pain, Throat Pain, Mouth Pain Respiratory: Present: Cough, Shortness of Breath. Absent: Wheezing Cardiac: Present: No Symptoms Reported Abdominal: Present: No Symptoms Reported Genitourinary: Present: No Symptoms Reported Musculoskeletal: Present: No Symptoms Reported Neurological: Present: No Symptoms Reported Skin: Present: No Symptoms Reported Immunizations: IMMUNIZATION HX Immunizations Up to Date Yes History of Influenza Vaccine Yes Hx Pneumococcal Vaccination Yes Allergies/Adverse Reactions: Allergies Allergy/AdvReac Type Severity Reaction Status Date / Time amlodipine [From Norvasc] Allergy Severe Diarrhea Verified 08/20/18 17:17 amlodipine besylate Allergy Severe Anaphylaxis, Verified 08/20/18 17:17 [From Norvasc] TONGUE SWELLING benzocaine Allergy Severe Anaphylaxis Verified 08/20/18 17:17 levofloxacin [From Levaquin] Allergy Severe Anaphylaxis, Verified 08/20/18 17:17 RASH, ITCHING levothyroxine sodium Allergy Severe PATCHY Verified 08/20/18 17:17 SWELLING rosuvastatin [From Crestor] Allergy Unknown Other Verified 08/20/18 17:17 morphine AdvReac Intermediate ARRYTHMIA, Verified 08/20/18 17:17 RASH adhesive AdvReac Mild BLISTERS Verified 08/20/18 17:17 rubber Allergy Mild Hives Uncoded 08/20/18 17:17 Home Medications: HOME MEDICATIONS Atorvastatin Calcium 40 mg PO HS 11/02/16 [Last Taken Unknown] Potassium Chloride [Klor-Con 10] 10 meq PO DAILY #30 tablet.sa 01/20/18 [Last Taken Unknown] albuterol sulfate 2.5 mg/3 mL (0.083 %) solution for nebulization 1.25 mg IH QID PRN 04/26/18 [Last Taken 04/04/18] aluminum chloride 20 % topical solution 1 applic TP HS 04/26/18 [Last Taken Unknown] mirtazapine 15 mg tablet 15 mg PO DAILY 04/26/18 [Last Taken Unknown] furosemide 40 mg tablet 40 mg PO DAILY #30 tab 04/27/18 [Last Taken Unknown] pramipexole 1.5 mg tablet See Rx Instructions PO .COMPLEX tab 05/05/18 [Last Taken Unknown] montelukast 10 mg tablet 10 mg PO QPM #90 tab 05/24/18 [Last Taken Unknown] Ranitidine HCl 300 mg PO HS #30 cap 06/21/18 [Last Taken Unknown] alprazolam 0.5 mg tablet 0.5 mg PO BID #60 tab 06/21/18 [Last Taken Unknown] fluoxetine 60 mg tablet 60 mg PO DAILY #30 tab 08/05/18 [Last Taken Unknown] metoprolol tartrate 50 mg tablet 75 mg PO BID #90 tab 08/05/18 [Last Taken Unknown] Exam - Exam Vital Signs: Vital Signs - Last Taken Temp 37.4 C 08/20/18 17:39 Pulse 84 08/20/18 17:39 Resp 18 08/20/18 17:39 BP 137/46 08/20/18 17:39 Pulse Ox 97 08/20/18 17:39 Constitutional: Present: Alert, Oriented x3, Elderly, Morbidly obese - likely has ENT Exam: Present: hearing grossly normal, pharynx normal. Absent: nasal congestion, muffled/hoarse voice, dry mucous membranes Eye Exam: bilateral eye: normal inspection, PERRL, EOMI Neck: Present: non-tender. Absent: lymphadenopathy (R), lymphadenopathy (L) Back Exam: Present: normal inspection, no CVA tenderness Respiratory: Present: lungs clear, decreased breath sounds - due to body habitus. Absent: crackles, wheezing Cardiovascular/Chest: Present: normal peripheral pulses. Absent: no edema Abdomen: Present: Normal bowel sounds, soft /Rectal: Present: Exam deferred Appearance: Present: disheveled, impaired insight Eye contact: Present: cooperative, good eye contact Thoughts: Present: normal thought pattern Diagnostic Studies: Abnormal Lab Results 08/20/18 08/20/18 08/20/18 Range/Units 14:28 14:45 14:45 WBC 10.8 H (4.0-10.5) K/mm3 MCHC 31.8 L (32-36) g/dl RDW 14.6 H (11.5-14.0) % Immature Gran # (Auto) 0.04 H (0.000-0.0310) K/mm3 Neutrophils % 79.2 H (42-75.0) % Lymphocytes % 11.5 L (20-51) % Neutrophils # 8.6 H (1.3-6.0) K/mm3 Lymphocytes # 1.25 L (1.5-3.5) k/mm3 pCO2 48.4 H (32.0-45.0) mmHg pO2 80.0 L (83.0-108.0) mmHg HCO3 28.3 H (21.0-28.0) mmol/L Total CO2 29.8 H (19.0-24.0) mmol/L Carbon Dioxide 36.9 H (24-32.6) mmol/L Random Glucose 120 H (70-110) mg/dL Total Bilirubin 1.3 H (0.0-1.1) mg/dL B-Natriuretic Peptide 677 H (5-325) pg/mL Laboratory Results WBC 10.8 K/mm3 (4.0-10.5) H 08/20/18 14:45 RBC 4.25 M/mm3 (4.2-5.4) 08/20/18 14:45 Hgb 12.9 gm/dL (12.5-16.0) 08/20/18 14:45 Hct 40.6 % (37.0-47.0) 08/20/18 14:45 MCV 95.5 fl (78-100) 08/20/18 14:45 MCH 30.4 pg (27-31) 08/20/18 14:45 MCHC 31.8 g/dl (32-36) L 08/20/18 14:45 RDW 14.6 % (11.5-14.0) H 08/20/18 14:45 Plt Count 231 K/mm3 (150-450) 08/20/18 14:45 MPV 9.2 fl (8-12.5) 08/20/18 14:45 Immature Gran % (Auto) 0.40 % (0.001-0.429) 08/20/18 14:45 Immature Gran # (Auto) 0.04 K/mm3 (0.000-0.0310) H 08/20/18 14:45 Neutrophils % 79.2 % (42-75.0) H 08/20/18 14:45 Lymphocytes % 11.5 % (20-51) L 08/20/18 14:45 Monocytes % 6.5 % (0.0-9) 08/20/18 14:45 Eosinophils % 2.2 % (0.0-3.0) 08/20/18 14:45 Basophils % 0.2 % (0.0-1.0) 08/20/18 14:45 Nucleated RBC % 0.0 k/mm3 (0-1) 08/20/18 14:45 Neutrophils # 8.6 K/mm3 (1.3-6.0) H 08/20/18 14:45 Lymphocytes # 1.25 k/mm3 (1.5-3.5) L 08/20/18 14:45 Monocytes # 0.7 k/mm3 (0.0-1.0) 08/20/18 14:45 Eosinophils # 0.2 k/mm3 (0.0-0.7) 08/20/18 14:45 Absolute Basophils 0.0 k/mm3 (0.0-0.1) 08/20/18 14:45 pCO2 48.4 mmHg (32.0-45.0) H 08/20/18 14:28 pO2 80.0 mmHg (83.0-108.0) L 08/20/18 14:28 HCO3 28.3 mmol/L (21.0-28.0) H 08/20/18 14:28 Total CO2 29.8 mmol/L (19.0-24.0) H 08/20/18 14:28 Base Excess 2.5 mmol/L (-2.0-3.0) 08/20/18 14:28 ABG pH 7.39 (7.35-7.45) 08/20/18 14:28 ABG O2 Sat (Measured) 95.6 % (94.0-98.0) 08/20/18 14:28 Sodium 141 mmol/L (132-142) 08/20/18 14:45 Plasma Sodium 141 mmol/L (130-142) 08/20/18 14:45 Potassium 3.7 mmol/L (3.4-4.6) 08/20/18 14:45 Chloride 101 mmol/L (97-106) 08/20/18 14:45 Carbon Dioxide 36.9 mmol/L (24-32.6) H 08/20/18 14:45 Anion Gap 6.8 mmol/L (6.8-13.8) 08/20/18 14:45 BUN 11 mg/dL (3-23) 08/20/18 14:45 Creatinine 0.96 mg/dL (0.4-1.4) 08/20/18 14:45 Est GFR (Non-Af Amer) 61 mL/min (60-130) 08/20/18 14:45 BUN/Creatinine Ratio 11.5 (9.0-21.6) 08/20/18 14:45 Random Glucose 120 mg/dL (70-110) H 08/20/18 14:45 Calcium 8.9 mg/dL (7.9-10.9) 08/20/18 14:45 Calcium Adj for Albumin 9.0 mg/dL (8.4-10.2) 08/20/18 14:45 Total Bilirubin 1.3 mg/dL (0.0-1.1) H 08/20/18 14:45 AST 14 U/L (0-48) 08/20/18 14:45 ALT 20 U/L (19-67) 08/20/18 14:45 Alkaline Phosphatase 102 U/L (50-170) 08/20/18 14:45 Troponin I Less than 0.017 ng/mL (0.00-0.10) 08/20/18 14:45 B-Natriuretic Peptide 677 pg/mL (5-325) H 08/20/18 14:45 Total Protein 7.6 gm/dL (6.2-8.2) 08/20/18 14:45 Albumin 3.5 gm/dl (3.4-5.0) 08/20/18 14:45 Assessment/Plan - Narrative Narrative: Currently being tx for CAP. Started on Rocephin in the ER. Added Azithromycin once she got to the floor. Continued home asthma medications (she denies COPD). Will begin to wean her down off the o2 to see how her sats do. She is not in NSR, she apparently has a hx of A-fib w RVR based on past records. Unsure as to why she is not rate controlled or on an anticoagulant. Was told she was in NSR when checked out, but clearly in a-fib seen on EKG. Will order lovenox now and discuss this with her in the morning. Vitals are currently stable. Her BNP was slightly elevated though better than her baseline. Lasix continued. Other chronic home medications restarted, to be given as directed. - Assessment/Plan (1) Pneumonia Problem: Acute (2) Dyspnea Problem: Acute (3) CHF (congestive heart failure) Problem: Acute Qualifiers: Heart failure type: diastolic Heart failure chronicity: chronic Qualified Code(s): I50.32 - Chronic diastolic (congestive) heart failure (4) Atrial fibrillation with RVR Problem: Acute
[2018-08-20] MEDS ORDERED: AZITHROMYCIN 250 MG TABLET PO ONE (19:00)
[2018-08-20] MEDS ORDERED: PRAMIPEXOLE DI-HCL 0.5 MG TABLET PO SCH (21:00)
[2018-08-20] MEDS ORDERED: ROSUVASTATIN CALCIUM 20 MG TABLET PO SCH (21:00)
[2018-08-20] MEDS ORDERED: METOPROLOL TARTRATE 50 MG TABLET PO SCH (21:00)
[2018-08-20] MEDS: ACETAMINOPHEN 325 MG TABLET PO PRN (22:48)
[2018-08-20] MEDS: ALPRAZolam 0.5 MG TABLET PO SCH (22:52)
[2018-08-20] MEDS ORDERED: ROSUVASTATIN CALCIUM 10 MG TABLET ONE (22:53)
[2018-08-20] MEDS ORDERED: AZITHROMYCIN 250 MG TABLET ONE (22:55)
[2018-08-21] MEDS ORDERED: FUROSEMIDE 40 MG TABLET PO SCH (09:00)
[2018-08-21] MEDS ORDERED: POTASSIUM CHLORIDE 10 MEQ TABLET.SA PO SCH (09:00)
[2018-08-21] MEDS ORDERED: MIRTAZAPINE 15 MG TABLET PO SCH (09:00)
[2018-08-21] MEDS ORDERED: ENOXAPARIN SODIUM 40 MG/0.4 ML SYRG SC SCH (09:00)
[2018-08-21] MEDS ORDERED: METOPROLOL TARTRATE 25 MG TABLET PO SCH (09:00)
[2018-08-21] MEDS ORDERED: FLUoxetine HCL 20 MG CAPSULE PO SCH (09:00)
[2018-08-21] MEDS ORDERED: PRAMIPEXOLE DI-HCL 0.5 MG TABLET PO SCH (09:00)
[2018-08-21] MEDS ORDERED: AZITHROMYCIN 250 MG TABLET PO SCH (09:00)
[2018-08-21] MEDS: ALPRAZolam 0.5 MG TABLET PO SCH (09:06)
[2018-08-21] MEDS: ACETAMINOPHEN 325 MG TABLET PO PRN (09:40)
--- NOTE | 2018-08-21 13:16 | DS ---
(1) Pneumonia Problem: Acute (2) Dyspnea Problem: Acute (3) CHF (congestive heart failure) Problem: Chronic Qualifiers: Heart failure type: diastolic Heart failure chronicity: chronic Qualified Code(s): I50.32 - Chronic diastolic (congestive) heart failure (4) Atrial fibrillation with RVR Problem: Chronic Description of Stay: Ms. Cristina was placed under observation for acute community aquired pneumonia with hypoxia. She had a slight leukocytosis with a left shift. She had had SOB for 1 week prior to coming to the hospital. She normally only uses o2 at night but states she was having to use it daily. XR in the ER showed RML infiltrate. She was started on Rocephin and Azithromcyin. Her hypoxia improved and she was able to be weaned off the o2. She passed an o2 walking test. She was ready to be discharged. Her blood gas on arrival showed a mildly elevated pCO2 and a mildly decreased pO2. Her pH was WNL. While here, she was found to be in a-fib. She was given lovenox. After reviewing her records, she has had this issue for years. She was on coumadin but unable to titrate to a therapeutic dose for some reason. We spent today trying to get her a PA for other medications but she is unable to afford them. She is currently only rate controlled. Will send her home on aspirin and have her follow up with her PCP on this. Her BNP was as low as it has ever been. She will be sent home an Augmentin and azithromycin. Procedures Performed: none Results and Findings: Lab Pending Results 08/20/18 14:28: pCO2 48.4 H, pO2 80.0 L, HCO3 28.3 H, Total CO2 29.8 H, Base Excess 2.5, ABG pH 7.39, ABG O2 Sat (Measured) 95.6 08/20/18 14:45: Sodium 141, Plasma Sodium 141, Potassium 3.7, Chloride 101, Carbon Dioxide 36.9 H, Anion Gap 6.8, BUN 11, Creatinine 0.96, Est GFR (Non-Af Amer) 61, BUN/Creatinine Ratio 11.5, Random Glucose 120 H, Calcium 8.9, Calcium Adj for Albumin 9.0, Total Bilirubin 1.3 H, AST 14, ALT 20, Alkaline Phosphatase 102, Troponin I Less than 0.017, B-Natriuretic Peptide 677 H, Total Protein 7.6, Albumin 3.5 08/20/18 14:45: WBC 10.8 H, RBC 4.25, Hgb 12.9, Hct 40.6, MCV 95.5, MCH 30.4, MCHC 31.8 L, RDW 14.6 H, Plt Count 231, MPV 9.2, Immature Gran % (Auto) 0.40, Immature Gran # (Auto) 0.04 H, Neutrophils % 79.2 H, Lymphocytes % 11.5 L, Monocytes % 6.5, Eosinophils % 2.2, Basophils % 0.2, Nucleated RBC % 0.0, Neutrophils # 8.6 H, Lymphocytes # 1.25 L, Monocytes # 0.7, Eosinophils # 0.2, Absolute Basophils 0.0 Discharge Location: Home Disposition: Home Health Service Condition: Fair Discharge Activity: Activity as tolerated Discharge Diet: Low fat/chol Referrals: Tobias Wilde DO [Primary Care Provider] - One Week Additional Patient Instructions (free text): [facility] nursing at discharge, please fax discharge orders and medications. Prescriptions (Any new or edited meds): Amox Tr/Potassium Clavulanate [Augmentin 875-125 Tablet] 875 mg PO Q12H #14 tab Aspirin 325 mg PO DAILY #30 tablet Azithromycin 250 mg PO DAILY #3 tablet Complete Home Medications List: Complete Home Medication List: Atorvastatin Calcium 40 mg PO HS 11/02/16 Potassium Chloride [Klor-Con 10] 10 meq PO DAILY #30 tablet.sa 01/20/18 albuterol sulfate 2.5 mg/3 mL (0.083 %) solution for nebulization 1.25 mg IH QID PRN 04/26/18 aluminum chloride 20 % topical solution 1 applic TP HS 04/26/18 mirtazapine 15 mg tablet 15 mg PO DAILY 04/26/18 furosemide 40 mg tablet 40 mg PO DAILY #30 tab 04/27/18 pramipexole 1.5 mg tablet See Rx Instructions PO .COMPLEX tab 05/05/18 montelukast 10 mg tablet 10 mg PO QPM #90 tab 05/24/18 Ranitidine HCl 300 mg PO HS #30 cap 06/21/18 alprazolam 0.5 mg tablet 0.5 mg PO BID #60 tab 06/21/18 fluoxetine 60 mg tablet 60 mg PO DAILY #30 tab 11/01/18 metoprolol tartrate 50 mg tablet 75 mg PO BID #90 tab 08/05/18 Acetaminophen [Tylenol] 650 mg PO Q6H PRN tablet 08/21/18 Amox Tr/Potassium Clavulanate [Augmentin 875-125 Tablet] 875 mg PO Q12H #14 tab 08/21/18 Aspirin 325 mg PO DAILY #30 tablet 08/21/18 Azithromycin 250 mg PO DAILY #3 tablet 08/21/18 Pramipexole Di-HCl [Mirapex] 1.5 mg PO DAILY tablet 08/21/18
[2018-08-21 13:32] VITALS: BP 126/70
[2018-08-21] MEDS ORDERED: MONTELUKAST SODIUM 10 MG TABLET PO SCH (20:00)
== END 2018-08-21 13:55 | disposition home health service (06) ==
LOC: MS 14:18 → ER 14:18 → MS 17:39
PROVIDERS: ADMIT Family Medicine; ATTEND Family Medicine
DX: J45.909 Unspecified asthma, uncomplicated
CPT/HCPCS: 36415; 36600; 71020; 71046; 80053; 82803; 83519; 83880; 84484; 85025; 87040; 93005; 94640; 94664; 94760; 96365; 96366; 96372; 96375; 99283; G0378

== ENCOUNTER 2018-10-28 16:00 | Observation (INO) ==
[2018-10-28 16:26] LABS: Hematocrit 40.8 % (37.0-47.0); Hemoglobin 13.3 gm/dL (12.5-16.0); Mean Cell Volume 95.3 fl (78-100); Mean Corpuscular Hemoglobin 31.1 pg (27-31); Mean Corpuscular Hgb Conc 32.6 g/dl (32-36); Mean Platelet Volume 9.6 fl (8-12.5); Neutrophil # 9.4 K/mm3 (1.3-6.0); Neutrophil % 76.2 % (42-75.0); Platelet Count 259 K/mm3 (150-450); Red Blood Count 4.28 M/mm3 (4.2-5.4); Red Cell Distribution Width 15.2 % (11.5-14.0); White Blood Count 12.4 K/mm3 (4.0-10.5)
[2018-10-28 16:41] LABS: ALT 13 U/L (19-67); AST 15 U/L (0-48); Albumin * 3.5 gm/dl (3.4-5.0); Alkaline Phosphatase * 92 U/L (50-170); Anion Gap 11.3 mmol/L (6.8-13.8); BUN/Creatinine Ratio 13.8 (9.0-21.6); Bilirubin, Total 1.4 mg/dL (0.0-1.1); Blood Urea Nitrogen 13 mg/dL (3-23); Ca. Corrected For Albumin 9.4 mg/dL (8.4-10.2); Calcium * 9.3 mg/dL (7.9-10.9); Carbon Dioxide 30.1 mmol/L (24-32.6); Chloride 104 mmol/L (97-106); Glucose * 99 mg/dL (70-110); Potassium 4.4 mmol/L (3.4-4.6); Sodium 141 mmol/L (132-142); Total Protein 7.6 gm/dL (6.2-8.2); Troponin I Less than 0.017 ng/mL (0.00-0.10)
[2018-10-28 17:33] LABS: Urine Bilirubin Negative (NEGATIVE); Urine Ketone Negative (NEGATIVE); Urine Nitrite Negative (NEGATIVE); Urine Protein Negative (NEGATIVE); Urine Specific Gravity >=1.030 SP.GR. (1.005-1.010); Urine Urobilinogen Normal (NORMAL)
[2018-10-28 17:44] LABS: Urine Appearance Slightly Cloudy (CLEAR); Urine Bacteria TRACE; Urine Blood 5 /ul (NEGATIVE); Urine Color Yellow; Urine RBC 0-5 /hpf (0-5); Urine WBC None Seen /hpf (0-5)
[2018-10-28] MEDS ORDERED: FUROSEMIDE 10 MG/ML VIAL IV ONE (17:53)
--- NOTE | 2018-10-28 18:29 | ERNOTE ---
Medical Problem HPI - Narrative Date of Service: 10/28/18 - General Chief Complaint: General Assessment Time Seen by Provider: 10/28/18 16:29 Source: patient Exam Limitations: no limitations - Immun/Allergies/Home Medications Immunizations: IMMUNIZATION HX Immunizations Up to Date Yes History of Influenza Vaccine Yes Hx Pneumococcal Vaccination Yes Allergies/Adverse Reactions: Allergies amlodipine [From Norvasc] Allergy (Severe, Verified 08/20/18 17:17) Diarrhea amlodipine besylate [From Norvasc] Allergy (Severe, Verified 08/20/18 17:17) Anaphylaxis, TONGUE SWELLING benzocaine Allergy (Severe, Verified 08/20/18 17:17) Anaphylaxis levofloxacin [From Levaquin] Allergy (Severe, Verified 08/20/18 17:17) Anaphylaxis, RASH, ITCHING levothyroxine sodium Allergy (Severe, Verified 08/20/18 17:17) PATCHY SWELLING rosuvastatin [From Crestor] Allergy (Unknown, Verified 08/20/18 17:17) Other morphine Adverse Reaction (Intermediate, Verified 08/20/18 17:17) ARRYTHMIA, RASH arrhythmia adhesive Adverse Reaction (Mild, Verified 08/20/18 17:17) BLISTERS rubber Allergy (Mild, Uncoded 08/20/18 17:17) Hives Home Medications: HOME MEDICATIONS Atorvastatin Calcium 40 mg PO HS 11/02/16 [Last Taken Unknown] Potassium Chloride [Klor-Con 10] 10 meq PO DAILY #30 tablet.sa 01/20/18 [Last Taken Unknown] albuterol sulfate 2.5 mg/3 mL (0.083 %) solution for nebulization 1.25 mg IH QID PRN 04/26/18 [Last Taken 04/04/18] aluminum chloride 20 % topical solution 1 applic TP HS 04/26/18 [Last Taken Unknown] mirtazapine 15 mg tablet 15 mg PO DAILY 04/26/18 [Last Taken Unknown] furosemide 40 mg tablet 40 mg PO DAILY #30 tab 04/27/18 [Last Taken Unknown] montelukast 10 mg tablet 10 mg PO QPM #90 tab 05/24/18 [Last Taken Unknown] Ranitidine HCl 300 mg PO HS #30 cap 06/21/18 [Last Taken Unknown] alprazolam 0.5 mg tablet 0.5 mg PO BID #60 tab 06/21/18 [Last Taken Unknown] metoprolol tartrate 50 mg tablet 75 mg PO BID #90 tab 08/05/18 [Last Taken Unknown] Acetaminophen [Tylenol] 650 mg PO Q6H PRN tablet 08/21/18 [Last Taken Unknown] Amox Tr/Potassium Clavulanate [Augmentin 875-125 Tablet] 875 mg PO Q12H #14 tab 08/21/18 [Last Taken Unknown] Aspirin 325 mg PO DAILY #30 tablet 08/21/18 [Last Taken Unknown] Azithromycin 250 mg PO DAILY #3 tablet 08/21/18 [Last Taken Unknown] pramipexole 1.5 mg tablet See Rx Instructions PO .COMPLEX #90 tab 09/09/18 [Last Taken Unknown] fluoxetine 20 mg tablet 60 mg PO DAILY #270 tab 10/26/18 [Last Taken Unknown] prednisone 20 mg tablet 20 mg PO DAILY PRN #30 tab 10/26/18 [Last Taken Unknown] - History of Present History Narrative: Patient presents to the ED via ambulance. She relates that she has been having increased bilateral leg swelling and pain over the last several weeks. She does not have a scale at home. Relates that she has been taking her medications. She denies chest pain but has been having increased SOB. She was noted to have her sates drop to the 86-87% range on her home O2 with just trying to get to the commode. She states that her legs feel weak and she feels like her legs buckle because she is weak. She is too weak to get around in her apartment. EMS called and she was brought here. She lives in an apartment without assistance. Timing: constant, getting worse Modifying Factors - (Improves): Present: other - nothign Modifying Factors - (Worsens): Present: other - exertion Review of Systems - Review of Systems Constitutional: Absent: fever EYE: Present: no symptoms reported ENT: Absent: sore throat Respiratory: Present: shortness of breath Cardiology: Absent: chest pain Gastrointestinal/Abdominal: Absent: abdominal pain Genitourinary: Absent: dysuria Musculoskeletal: Present: See HPI Skin: Present: other - no cellulitis Neurological: Present: See HPI All Other Systems: All systems neg except as marked Medical History (Last Reviewed 10/28/18 @ 18:24 by Jose Duke MD) Alzheimers disease Anxiety Atrial fibrillation Onset Date: ~10/2007 post operative afib with a rapid ventricular response and low voltage. CHF (congestive heart failure) Onset Date: ~11/11/16 CVA (cerebral vascular accident) Hyperlipidemia Hypertension Torn rotator cuff Asthma Depression Hypercholesterolemia Hyperhidrosis Morbid obesity Obstructive sleep apnea Osteoarthrosis Onset Date: ~09/07/07 Restless legs Spinal stenosis Weakness of both lower extremities Onset Date: ~01/20/17 Hemiparesis left Ischemic stroke Onset Date: ~10/11/16 suspected etiology is cardioembolic given newly diagnosed afib, however cannot rule out MMCA stenosis without vessel imaging. Knee pain Onset Date: ~09/07/07 Lower extremity edema Onset Date: ~10/04/13 Wrist pain, right Surgical History: Surgical History (Last Reviewed 10/28/18 @ 18:24 by Jose Duke MD) Hx of bilateral hip replacements Hx of total knee replacement Onset Date: ~2004 right knee Bone spur bilateral 03/2013 Dr. Lee H/O arthroplasty Onset Date: ~10/18/07 Left partial H/O knee surgery Onset Date: ~04/14/08 left partial knee History of appendectomy History of back surgery Onset Date: ~2003 1986 and 2003 History of carpal tunnel release of both wrists History of partial hysterectomy Onset Date: ~1979 S/P cubital tunnel release Onset Date: ~06/02/14 Dr. Benavides, right Tarsal Tunnel release right H/O colonoscopy at [facility] Family History: Family History (Last Reviewed 10/28/18 @ 18:24 by Jose Duke MD) Mother TIA (transient ischemic attack) Hypertension Father Lung cancer Brother Alive and well Social History: Preferred Language Croatian Do you have any mandaen or No cultural preference? Smoking Status Never smoker Abuse History No History of abuse Psych History Hx of Anxiety,Currently on Meds (Last Updated 09/10/18 @ 00:50 by Tobias Wilde DO) No Social History Section defined Physical Exam - Physical Exam General Appearance: Present: alert, no apparent distress Head Exam: Present: normal inspection, no evidence of injury Eye Exam: Normal inspection: bilateral, PERRL: bilateral Ears, Nose, Throat: Present: normal ENT inspection Neck: Present: normal inspection Respiratory: Present: no accessory muscle use, other - scattered crackles ion the bases Cardiovascular/Chest: Present: tachycardia, irregularly irregular Gastrointestinal/Abdominal: Present: normal bowel sounds, nontender, soft Back Exam: Absent: CVA tenderness (R), CVA tenderness (L) Extremity Exam: Present: pedal edema, extremity edema. Absent: joint redness Neurological Exam: Present: alert, other - no acute unilateral motor or sensory deficits noted Skin Exam: Present: normal color, warm/dry Progress - Results and Orders Patient's Lab Results:: I have reviewed the patient's lab results. - Vital Signs Patient's Vital Signs:: I have reviewed the patient's vital signs. Vital Signs: Vital Signs 10/28/18 16:01 10/28/18 17:19 10/28/18 18:00 Temperature 36.4 C Pulse Rate 114 H 110 H 109 H Respiratory Rate 21 H 22 H 22 H Blood Pressure 141/111 H 172/102 H O2 Sat by Pulse Oximetry 94 95 95 - EKG EKG #1 EKG read: Interp. by me EKG Comments: A fib rate 101. Non-specific changes, no clear evidence of STEMI - X-Ray X-Ray #1 X-Ray: chest Interpretation: Interp. by me X-ray Comments: No real-time radiology reads, pulmonary vascular congestion by my reading\ - Progress/Reassessment Chief Complaint: General Assessment Progress Note-Subjective: 10/28/18 18:26 Patient has Sx that I feel are most c/w CHF exacerbation. IV Lasix given. With her severe weakness and living circumstance and with desats into the 80s with minimal exertion here I feel obs for diuresis is most appropriate. patient agreeable. D/W Dr Queen who agrees to obs. Departure Clinical Impression: CHF exacerbation, Generalized weakness, Gait instability - Departure Disposition: Still a patient Condition: Fair
[2018-10-28] MEDS ORDERED: ACETAMINOPHEN 325 MG TABLET PO PRN (21:08)
[2018-10-28] MEDS ORDERED: ALBUTEROL SULFATE 2.5 MG/0.5 ML VIAL.NEB IH PRN (21:08)
--- NOTE | 2018-10-28 21:16 | HP ---
Chief Complaint - Chief Complaint Date of Service: 10/28/18 Time of Service: 21:16 Chief Complaint: shortness of breath, swelling in her legs History of Present Illness: Mrs. Cristina is a 72-year-old female with a history of congestive heart failure who presented to the ER with worsening shortness of breath and increased swelling of her bilateral lower extremities. Patient states the swelling has been ongoing for a few weeks with shortness of breath starting this morning. Patient is normally on 2 L of oxygen via nasal cannula at home but she had to use an increased amount to maintain comfort levels. While here she was able to maintain sats in the upper 90s on 4 L. Chest x-ray did not show vascular congestion and fluid overload though she had a BNP of greater than 1500. There is also no infiltrate seen on the x-ray. She was given a dose of IV Lasix in which she has already diuresed over 1700 cc this evening. Patient denies fevers, chills, or productive cough. Patient is unsure of the medication she takes or how often she supposed to take them leading me to think that she has some difficulty with managing her chronic medical conditions. She was placed in observation and will be monitored for improvement overnight. Medical History (Last Reviewed 10/28/18 @ 19:39 by Angeline Inman RN) Alzheimers disease Anxiety Atrial fibrillation Onset Date: ~10/2007 post operative afib with a rapid ventricular response and low voltage. CHF (congestive heart failure) Onset Date: ~11/11/16 CVA (cerebral vascular accident) Hyperlipidemia Hypertension Torn rotator cuff Asthma Depression Hypercholesterolemia Hyperhidrosis Morbid obesity Obstructive sleep apnea Osteoarthrosis Onset Date: ~09/07/07 Restless legs Spinal stenosis Weakness of both lower extremities Onset Date: ~01/20/17 Hemiparesis left Ischemic stroke Onset Date: ~10/11/16 suspected etiology is cardioembolic given newly diagnosed afib, however cannot rule out MMCA stenosis without vessel imaging. Knee pain Onset Date: ~09/07/07 Lower extremity edema Onset Date: ~10/04/13 Wrist pain, right Surgical History: Surgical History (Last Reviewed 10/28/18 @ 19:40 by Angeline Inman RN) Hx of bilateral hip replacements Hx of total knee replacement Onset Date: ~2004 right knee Bone spur bilateral 03/2013 Dr. Lee H/O arthroplasty Onset Date: ~10/18/07 Left partial H/O knee surgery Onset Date: ~04/14/08 left partial knee History of appendectomy History of back surgery Onset Date: ~2003 1986 and 2003 History of carpal tunnel release of both wrists History of partial hysterectomy Onset Date: ~1979 S/P cubital tunnel release Onset Date: ~06/02/14 Dr. Benavides, right Tarsal Tunnel release right H/O colonoscopy at [facility] Family History: Family History (Last Reviewed 10/28/18 @ 19:41 by Angeline Inman RN) Mother TIA (transient ischemic attack) Hypertension Father Lung cancer Brother Alive and well Social History: Patient Lives/Resources Home Utilized Occupation Retired Preferred Language Turkmen Do you have any caodaism or No cultural preference? Smoking Status Never smoker Have you smoked in the past 12 No months Do you dip or chew tobacco No Abuse History No History of abuse Psych History Hx of Anxiety,Currently on Meds (Last Updated 09/10/18 @ 00:50 by Tobias Wilde DO) No Social History Section defined Review Of Systems (GEN) - Review of Systems Generalized/Overall Review: Present: Weakness. Absent: Chills, Fever EENTM: Present: No Symptoms Reported Respiratory: Present: Cough, Shortness of Breath. Absent: Wheezing Cardiac: Present: Edema. Absent: Chest Pain, Palpitations Abdominal: Present: No Symptoms Reported Genitourinary: Present: No Symptoms Reported Musculoskeletal: Present: Joint Pain - left knee Neurological: Present: No Symptoms Reported Skin: Present: No Symptoms Reported Immunizations: IMMUNIZATION HX Immunizations Up to Date Yes History of Influenza Vaccine Yes Hx Pneumococcal Vaccination Yes Allergies/Adverse Reactions: Allergies Allergy/AdvReac Type Severity Reaction Status Date / Time amlodipine [From Norvasc] Allergy Severe Diarrhea Verified 08/20/18 17:17 amlodipine besylate Allergy Severe Anaphylaxis, Verified 08/20/18 17:17 [From Norvasc] TONGUE SWELLING benzocaine Allergy Severe Anaphylaxis Verified 08/20/18 17:17 levofloxacin [From Levaquin] Allergy Severe Anaphylaxis, Verified 08/20/18 17:17 RASH, ITCHING levothyroxine sodium Allergy Severe PATCHY Verified 08/20/18 17:17 SWELLING rosuvastatin [From Crestor] Allergy Unknown Other Verified 08/20/18 17:17 morphine AdvReac Intermediate ARRYTHMIA, Verified 08/20/18 17:17 RASH adhesive AdvReac Mild BLISTERS Verified 08/20/18 17:17 rubber Allergy Mild Hives Uncoded 08/20/18 17:17 Home Medications: HOME MEDICATIONS Atorvastatin Calcium 40 mg PO HS 11/02/16 [Last Taken Unknown] Potassium Chloride [Klor-Con 10] 10 meq PO DAILY #30 tablet.sa 01/20/18 [Last Taken Unknown] albuterol sulfate 2.5 mg/3 mL (0.083 %) solution for nebulization 1.25 mg IH QID PRN 04/26/18 [Last Taken 04/04/18] aluminum chloride 20 % topical solution 1 applic TP HS 04/26/18 [Last Taken Unknown] mirtazapine 15 mg tablet 15 mg PO DAILY 04/26/18 [Last Taken Unknown] furosemide 40 mg tablet 40 mg PO DAILY #30 tab 04/27/18 [Last Taken Unknown] montelukast 10 mg tablet 10 mg PO QPM #90 tab 05/24/18 [Last Taken Unknown] Ranitidine HCl 300 mg PO HS #30 cap 06/21/18 [Last Taken Unknown] alprazolam 0.5 mg tablet 0.5 mg PO BID #60 tab 06/21/18 [Last Taken Unknown] metoprolol tartrate 50 mg tablet 75 mg PO BID #90 tab 08/05/18 [Last Taken Unknown] Acetaminophen [Tylenol] 650 mg PO Q6H PRN tablet 08/21/18 [Last Taken Unknown] Amox Tr/Potassium Clavulanate [Augmentin 875-125 Tablet] 875 mg PO Q12H #14 tab 08/21/18 [Last Taken Unknown] Aspirin 325 mg PO DAILY #30 tablet 08/21/18 [Last Taken Unknown] Azithromycin 250 mg PO DAILY #3 tablet 08/21/18 [Last Taken Unknown] pramipexole 1.5 mg tablet See Rx Instructions PO .COMPLEX #90 tab 09/09/18 [Last Taken Unknown] fluoxetine 20 mg tablet 60 mg PO DAILY #270 tab 10/26/18 [Last Taken Unknown] prednisone 20 mg tablet 20 mg PO DAILY PRN #30 tab 10/26/18 [Last Taken Unknown] Exam - Exam Vital Signs: Vital Signs - Last Taken Temp 37.2 C 10/28/18 19:02 Pulse 95 10/28/18 19:02 Resp 24 H 10/28/18 19:02 BP 163/95 H 10/28/18 18:44 Pulse Ox 94 10/28/18 19:02 Constitutional: Present: Alert, Oriented x3, Mild distress, Morbidly obese Neck: Present: non-tender, supple Respiratory: Present: lungs clear, decreased breath sounds - Throughout lower lung love bilaterally. Absent: crackles, wheezing Cardiovascular/Chest: Present: normal peripheral pulses, regular rate, rhythm Abdomen: Present: Normal bowel sounds, soft Extremity: Present: lower extremity edema - 2+ pitting edema to just below the joint bilaterally Skin Exam: Present: normal color Appearance: Present: disheveled, impaired insight Eye contact: Present: cooperative, good eye contact Thoughts: Absent: normal thought pattern - limited Diagnostic Studies: Abnormal Lab Results 10/28/18 10/28/18 10/28/18 Range/Units 16:15 16:15 17:00 WBC 12.4 H (4.0-10.5) K/mm3 MCH 31.1 H (27-31) pg RDW 15.2 H (11.5-14.0) % Immature Gran # (Auto) 0.05 H (0.000-0.0310) K/mm3 Neutrophils % 76.2 H (42-75.0) % Lymphocytes % 13.8 L (20-51) % Neutrophils # 9.4 H (1.3-6.0) K/mm3 Total Bilirubin 1.4 H (0.0-1.1) mg/dL ALT 13 L (19-67) U/L B-Natriuretic Peptide 1525 H (5-325) pg/mL Urine Blood (NEGATIVE) /ul 10/28/18 Range/Units 17:24 WBC (4.0-10.5) K/mm3 MCH (27-31) pg RDW (11.5-14.0) % Immature Gran # (Auto) (0.000-0.0310) K/mm3 Neutrophils % (42-75.0) % Lymphocytes % (20-51) % Neutrophils # (1.3-6.0) K/mm3 Total Bilirubin (0.0-1.1) mg/dL ALT (19-67) U/L B-Natriuretic Peptide (5-325) pg/mL Urine Blood 5 H (NEGATIVE) /ul Laboratory Results WBC 12.4 K/mm3 (4.0-10.5) H 10/28/18 16:15 RBC 4.28 M/mm3 (4.2-5.4) 10/28/18 16:15 Hgb 13.3 gm/dL (12.5-16.0) 10/28/18 16:15 Hct 40.8 % (37.0-47.0) 10/28/18 16:15 MCV 95.3 fl (78-100) 10/28/18 16:15 MCH 31.1 pg (27-31) H 10/28/18 16:15 MCHC 32.6 g/dl (32-36) 10/28/18 16:15 RDW 15.2 % (11.5-14.0) H 10/28/18 16:15 Plt Count 259 K/mm3 (150-450) 10/28/18 16:15 MPV 9.6 fl (8-12.5) 10/28/18 16:15 Immature Gran % (Auto) 0.40 % (0.001-0.429) 10/28/18 16:15 Immature Gran # (Auto) 0.05 K/mm3 (0.000-0.0310) H 10/28/18 16:15 Neutrophils % 76.2 % (42-75.0) H 10/28/18 16:15 Lymphocytes % 13.8 % (20-51) L 10/28/18 16:15 Monocytes % 7.0 % (0.0-9) 10/28/18 16:15 Eosinophils % 2.4 % (0.0-3.0) 10/28/18 16:15 Basophils % 0.2 % (0.0-1.0) 10/28/18 16:15 Nucleated RBC % 0.0 k/mm3 (0-1) 10/28/18 16:15 Neutrophils # 9.4 K/mm3 (1.3-6.0) H 10/28/18 16:15 Lymphocytes # 1.71 k/mm3 (1.5-3.5) 10/28/18 16:15 Monocytes # 0.9 k/mm3 (0.0-1.0) 10/28/18 16:15 Eosinophils # 0.3 k/mm3 (0.0-0.7) 10/28/18 16:15 Absolute Basophils 0.0 k/mm3 (0.0-0.1) 10/28/18 16:15 Sodium 141 mmol/L (132-142) 10/28/18 16:15 Plasma Sodium 141 mmol/L (130-142) 10/28/18 16:15 Potassium 4.4 mmol/L (3.4-4.6) 10/28/18 16:15 Chloride 104 mmol/L (97-106) 10/28/18 16:15 Carbon Dioxide 30.1 mmol/L (24-32.6) 10/28/18 16:15 Anion Gap 11.3 mmol/L (6.8-13.8) 10/28/18 16:15 BUN 13 mg/dL (3-23) 10/28/18 16:15 Creatinine 0.94 mg/dL (0.4-1.4) 10/28/18 16:15 Est GFR (Non-Af Amer) 62 mL/min (60-130) 10/28/18 16:15 BUN/Creatinine Ratio 13.8 (9.0-21.6) 10/28/18 16:15 Random Glucose 99 mg/dL (70-110) 10/28/18 16:15 Lactic Acid, Venous 0.9 mmol/L (0.4-2.0) 10/28/18 17:00 Calcium 9.3 mg/dL (7.9-10.9) 10/28/18 16:15 Calcium Adj for Albumin 9.4 mg/dL (8.4-10.2) 10/28/18 16:15 Total Bilirubin 1.4 mg/dL (0.0-1.1) H 10/28/18 16:15 AST 15 U/L (0-48) 10/28/18 16:15 ALT 13 U/L (19-67) L 10/28/18 16:15 Alkaline Phosphatase 92 U/L (50-170) 10/28/18 16:15 Troponin I Less than 0.017 ng/mL (0.00-0.10) 10/28/18 16:15 B-Natriuretic Peptide 1525 pg/mL (5-325) H 10/28/18 17:00 Total Protein 7.6 gm/dL (6.2-8.2) 10/28/18 16:15 Albumin 3.5 gm/dl (3.4-5.0) 10/28/18 16:15 Urine Color Yellow 10/28/18 17:24 Urine Appearance Slightly cloudy (CLEAR) 10/28/18 17:24 Urine pH 6.0 pH (5.0-7.0) 10/28/18 17:24 Ur Specific [place] >=1.030 SP.GR. (1.005-1.010) 10/28/18 17:24 Urine Protein Negative mg/dL (NEGATIVE) 10/28/18 17:24 Urine Glucose (UA) Negative mg/dL (NEGATIVE) 10/28/18 17:24 Urine Ketones Negative mg/dL (NEGATIVE) 10/28/18 17:24 Urine Blood 5 /ul (NEGATIVE) H 10/28/18 17:24 Urine Nitrate Negative (NEGATIVE) 10/28/18 17:24 Urine Bilirubin Negative mg/dl (NEGATIVE) 10/28/18 17:24 Urine Urobilinogen Normal EU/dl (NORMAL) 10/28/18 17:24 Ur Leukocyte Esterase Negative /ul (NEGATIVE) 10/28/18 17:24 Urine RBC 0-5 /hpf (0-5) 10/28/18 17:24 Urine WBC None seen /hpf (0-5) 10/28/18 17:24 Ur Epithelial Cells Trace /hpf (0-5) 10/28/18 17:24 Urine Bacteria Trace (NONE) 10/28/18 17:24 Urine Culture Comments No culture indicated 10/28/18 17:24 Assessment/Plan - Procedures Results: Patient brought in for observation overnight. She was given a dose of IV Lasix this evening- We will repeat the dose times 1 in the AM. Strict I's and O's with fluid restriction to 1500 cc daily. Ordered PT and OT to evaluate the patient due to severe deconditioning and weakness from lack of activity. O2 sats to be maintained above 93%, will wean down to her normal home rate of 2 L if possible overnight. Other chronic medications resumed. Vital signs will be monitored. Heart healthy diet to be started in the a.m., Lovenox to be used for DVT prophylaxis while here. - Assessment/Plan (1) Atrial fibrillation Problem: Chronic Qualifiers: Atrial fibrillation type: chronic Qualified Code(s): I48.2 - Chronic atrial fibrillation (2) Dyspnea Problem: Acute (3) CHF exacerbation Problem: Acute
[2018-10-28] MEDS ORDERED: MONTELUKAST SODIUM 10 MG TABLET PO SCH (21:45)
[2018-10-28] MEDS ORDERED: FAMOTIDINE 20 MG TABLET PO SCH (21:45)
[2018-10-28] MEDS ORDERED: PRAMIPEXOLE DI-HCL 0.5 MG TABLET PO SCH (21:45)
[2018-10-28] MEDS ORDERED: METOPROLOL TARTRATE 50 MG TABLET PO SCH (21:45)
[2018-10-28] MEDS: ALPRAZolam 0.5 MG TABLET PO SCH (21:52)
[2018-10-28] MEDS ORDERED: ENOXAPARIN SODIUM 40 MG/0.4 ML SYRG SC SCH (22:00)
[2018-10-29] MEDS: ALPRAZolam 0.5 MG TABLET PO SCH (08:09)
[2018-10-29] MEDS ORDERED: PRAMIPEXOLE DI-HCL 0.5 MG TABLET PO SCH (09:00)
[2018-10-29] MEDS ORDERED: FUROSEMIDE 10 MG/ML VIAL IV SCH (09:00)
[2018-10-29] MEDS ORDERED: ASPIRIN 325 MG TABLET.DR PO SCH (09:00)
[2018-10-29] MEDS ORDERED: POTASSIUM CHLORIDE 10 MEQ TABLET.SA PO SCH (09:00)
[2018-10-29] MEDS ORDERED: MIRTAZAPINE 15 MG TABLET PO SCH (09:00)
[2018-10-29] MEDS ORDERED: METOPROLOL TARTRATE 25 MG TABLET PO SCH (09:00)
[2018-10-29] MEDS ORDERED: FLUoxetine HCL 20 MG CAPSULE PO SCH (09:00)
--- NOTE | 2018-10-29 12:37 | DS ---
(1) Depression Problem: Acute Qualifiers: Depression Type: major depressive disorder Major depression recurrence: single episode Active/Remission status: currently active Major depression episode severity: moderate Qualified Code(s): F32.1 - Major depressive disorder, single episode, moderate (2) CHF exacerbation Problem: Resolved Qualifiers: Heart failure type: diastolic Qualified Code(s): I50.33 - Acute on chronic diastolic (congestive) heart failure (3) Generalized weakness Problem: Chronic (4) Fall at home Problem: Acute Qualifiers: Encounter type: initial encounter Qualified Code(s): W19.XXXA - Unspecified fall, initial encounter; Y92.099 - Unspecified place in other non-institutional residence as the place of occurrence of the external cause (5) Atrial fibrillation Problem: Chronic Qualifiers: Atrial fibrillation type: chronic Qualified Code(s): I48.2 - Chronic atrial fibrillation Description of Stay: Letty is a 72 yo female that presented to the [facility] ER yesterday for worsening generalized weakness and shortness of breath. She has progressive weakness from decrease in activity, depression, and CHF. She has chronic diastolic CHF that may be slightly worsened. There was no significant hypoxia, no significant pulmonary congestion seen on chest xray, she did have slight elevation of BNP at 1500. She was diuresed with IV lasix. She was evaluated by PT and was able to ambulate with standby. She was admitted to observation and is overall doing well enough for home discharge. I discussed options with patient's daughter who would like her to get home health with therapies. She will be discharged to home with home health ([facility]) with physical therapy. She needs home health because she is home bound and it is physically taxing for her to leave the home. She needs nursing for medication set up and monitor of fluid status due to her CHF. She needs to monitor her weight, breathing, and edema. She needs home PT for strengthening as she is weak. The need for home health care skilled services is directly related to the time spent face to face with Letty today. I am currently working to get a hospital bed because she has congestive heart failure and needs positioning of bed to help breath with CHF. She also needs a mechanical lift chair as she is unable to stand up out of a chair. She also needs a wheelchair as she has fallen with the use of her walking as she is too weak to successfully walk with a can or walker for greater than 20 feet. She is unable to go to the activity center nearby for social interaction that would be good for her well being. Procedures Performed: none Results and Findings: Lab Pending Results 10/28/18 16:15: WBC 12.4 H, RBC 4.28, Hgb 13.3, Hct 40.8, MCV 95.3, MCH 31.1 H, MCHC 32.6, RDW 15.2 H, Plt Count 259, MPV 9.6, Immature Gran % (Auto) 0.40, Immature Gran # (Auto) 0.05 H, Neutrophils % 76.2 H, Lymphocytes % 13.8 L, Monocytes % 7.0, Eosinophils % 2.4, Basophils % 0.2, Nucleated RBC % 0.0, Neutrophils # 9.4 H, Lymphocytes # 1.71, Monocytes # 0.9, Eosinophils # 0.3, Absolute Basophils 0.0 10/28/18 16:15: Sodium 141, Plasma Sodium 141, Potassium 4.4, Chloride 104, Carbon Dioxide 30.1, Anion Gap 11.3, BUN 13, Creatinine 0.94, Est GFR (Non-Af Amer) 62, BUN/Creatinine Ratio 13.8, Random Glucose 99, Calcium 9.3, Calcium Adj for Albumin 9.4, Total Bilirubin 1.4 H, AST 15, ALT 13 L, Alkaline Phosphatase 92, Troponin I Less than 0.017, Total Protein 7.6, Albumin 3.5 10/28/18 17:00: B-Natriuretic Peptide 1525 H 10/28/18 17:00: Lactic Acid, Venous 0.9 10/28/18 17:24: Urine Color Yellow, Urine Appearance Slightly cloudy, Urine pH 6.0, Ur Specific [place] >=1.030, Urine Protein Negative, Urine Glucose (UA) Negative, Urine Ketones Negative, Urine Blood 5 H, Urine Nitrate Negative, Urine Bilirubin Negative, Urine Urobilinogen Normal, Ur Leukocyte Esterase Negative, Urine RBC 0-5, Urine WBC None seen, Ur Epithelial Cells Trace, Urine Bacteria Trace, Urine Culture Comments No culture indicated 10/29/18 03:20: Troponin I Less than 0.017 Discharge Location: Home Disposition: Home Health Service Home Health Agency: [facility] Home Health Condition: Fair Face to Face Encounter completed per [facility] Guidelines: Yes Discharge Activity: Activity as tolerated Discharge Diet: Low salt Referrals: Tobias Wilde DO [Primary Care Provider] - Two Weeks Problem Oriented Discharge Instructions to Patient/Family: CHF Patient Instructions Additional Patient Instructions (free text): -Please make TCM appointment unless half-way discharge. Thank you! Briana @ [phone]. [facility] to see patient at discharge, please call and fax discharge orders. Follow up appointment with on 11/04/18 at 2:00pm. Complete Home Medications List: Complete Home Medication List: Atorvastatin Calcium 40 mg PO HS 11/02/16 albuterol sulfate 2.5 mg/3 mL (0.083 %) solution for nebulization 1.25 mg IH QID PRN 04/26/18 aluminum chloride 20 % topical solution 1 applic TP HS 04/26/18 Ranitidine HCl 300 mg PO HS #30 cap 06/21/18 alprazolam 0.5 mg tablet 0.5 mg PO BID #60 tab 06/21/18 metoprolol tartrate 50 mg tablet 75 mg PO BID #90 tab 08/05/18 Acetaminophen [Tylenol] 650 mg PO Q6H PRN tablet 08/21/18 pramipexole 1.5 mg tablet See Rx Instructions PO .COMPLEX #90 tab 09/09/18 fluoxetine 20 mg tablet 60 mg PO DAILY #270 tab 10/26/18 prednisone 20 mg tablet 20 mg PO DAILY PRN #30 tab 10/26/18
[2018-10-29 14:24] VITALS: BP 145/87
[2018-10-29] MEDS ORDERED: ATORVASTATIN CALCIUM 40 MG PO SCH (21:00)
== END 2018-10-29 15:05 | disposition home health service (06) ==
LOC: MS 16:00 → ER 16:00 → MS 19:05
PROVIDERS: ADMIT Family Medicine; ATTEND Family Medicine
CPT/HCPCS: 36415; 71010; 71045; 80053; 81001; 83519; 83605; 83880; 84484; 85025; 93005; 96372; 96374; 96375; 97110; 97116; 97161; 99285; G0378